=== PATIENT | female | born 1935 | race Caucasian/White ===

== ENCOUNTER 2017-01-07 13:53 | Emergency (ER) | payer MEDICARE, MEDICAID ==
[~2017-01-07] VITALS: Ht 154.9 cm; Wt 46.7 kg
[~2017-01-07 13:53] MED LIST: ASP325TEC PO; ASP81TEC PO; ASPI-74 PO; ATEN25TA PO; CND32T PO; COMBIVENT; FURO20TA4 PO; LEVO250T PO; MELO-195 PO; MNTL10T PO; PEDI1TAB35 PO; POTA10CA43 PO; RABE20TA PO; SINGULAR; SPIRIVIA; TIOT18CA INH
--- OUTSIDE RECORDS SUMMARY | 2017-01-07 14:04 | XMS REPORT | Continuity of Care Document ---
Author Author [facility] Organization [facility] Address Unknown Phone Unavailable Care Team Providers Care Water Sander Name Role Phone QUENTIN ORTIZ MD PP Insurance Providers Payer Name Policy Number Subscriber Name Relationship [facility] [id number] Raffi Faustin Self / Same As Patient [employer] [id number] Raffi Faustin Self / Same As Patient Advance Directives Directive Response Recorded Date Advance Directives Y 07/14/13 6:44pm Health Care Power of Motor Coach Supervisor N 07/14/13 6:44pm Organ Donor Y 07/14/13 6:44pm Problems No Known Problems or Medical conditions. Family History History Response Recorded Date/Time Hx Family Cancer N 08/07/12 12:00am Hx Family Cardiac Disorders Y 08/07/12 12 :00am Hx Family Stroke Y brother 08/07/12 12: 00am Hx Family Myocardial Infarction Y Father, 2 brothers 08/07/12 12:00am Social History History Response Recorded Date/Time Alcohol Use Rarely Uses 07/14/13 6:44pm Recreational Drug Use N 07/14/13 6:44pm Sexually Transmitted Disease N 07/14/13 6 :44pm Allergies, Adverse Reactions, Alerts Allergen Type Severity Reaction Last Updated Sulfa (Sulfonamide Antibiotics) Allergy 09/01/11 hydrochlorothiazide Allergy Intermediate RASH 05/16/12 Levofloxacin Adverse Reaction Intermediate SOA 07/14/13 milk Adverse Reaction Mild upset stomach 07/14/13 Medications Medication Dose Units Route Sig Qty Days [Singular] [Combivent] [Spirivia] Meloxicam 1 Each PO DAILY Rabeprazole Sodium (Aciphex) 20 Mg PO DAILY Aspirin (Aspirin Ec 81 Mg) 81 Mg PO DAILY Potassium Chloride 10 Meq PO DAILY Furosemide 20 Mg PO DAILY Atenolol (Tenormin 25 Mg) 25 Mg PO DAILY [spirivia] Aspirin (Aspirin Ec 325 Mg) 325 Mg PO DAILY Tiotropium [place] (Spiriva) 1 Puff INH DAILY Aspirin (Mariaelena Aspirin) 325 Mg PO DAILY Levofloxacin (Levaquin Po) 250 Mg PO DAILY Montelukast Sodium (Singulair) 10 Mg PO DAILY Immunizations Name Given Type Date of Pneumonia Vaccine 10/22/11 H Response Recorded Date/Time Status not known Unknown Results Test Date Result Interp. Ref. Range Activated Partial Thromboplast Time August 06, 2012 10: 30pm 21 SEC L 24-35 Alanine Aminotransferase (ALT/SGPT) August 06, 2012 10: 30pm 65 U/L N 30-65 Albumin August 06, 2012 10:30pm 3.7 G/ DL N 3.4-5.0 Alkaline Phosphatase August 06, 2012 10:30pm 133 U/L N 50-136 Amylase Level August 06, 2012 10:30pm 62 U/L N 25-115 Aspartate Amino Transf (AST/SGOT) August 06, 2012 10:30pm 76 U/L H 15-37 B-Type Natriuretic Peptide August 06, 2012 10:30pm 3030.0 PG/ML H 5.0-100.0 BUN/Creatinine Ratio August 06, 2012 10:30pm 17 - Basophils # (Auto) August 06, 2012 10:30pm 0.1 10^3/uL N 0.0-0.1 Basophils (%) (Auto) August 06, 2012 10:30pm 1 % N 0-10 Blood Urea Nitrogen August 06, 2012 10:30pm 24 MG/DL H 7-18 Calcium Level August 06, 2012 10:30pm 8.8 MG/DL N 8.5-10.1 Carbon Dioxide Level August 06, 2012 10:30pm 27 MMOL/L N 21-32 Chloride Level August 06, 2012 10:30pm 102 MMOL/L N 101-110 Creatine Kinase MB August 06, 2012 10:30pm 0.8 NG/ML N 0.0-3.6 Creatinine August 06, 2012 10:30pm 1.4 MG/DL H 0.6-1.3 Eosinophils # (Auto) August 06, 2012 10:30pm 0.1 10^3/uL N 0.0-0.3 Eosinophils (%) (Auto) August 06, 2012 10:30pm 1 % N 0-10 Glucose Level August 06, 2012 10:30pm 171 MG/DL H 74-106 Hematocrit August 06, 2012 10:30pm 42 % N 35-52 Hemoglobin August 06, 2012 10:30pm 14.4 G/DL N 11.5-16.0 Lipase August 06, 2012 10:30pm 162 U/L N 73-393 Lymphocytes # (Auto) August 06, 2012 10:30pm 3.3 X 10^3 N 1.0-4.0 Lymphocytes (%) (Auto) August 06, 2012 10:30pm 43 % N 12-44 Magnesium Level May 16, 2012 12:07am 2.2 MG/DL N 1.8-2.4 Mean Corpuscular Hemoglobin August 06, 2012 10:30pm 31 PG N 25-34 Mean Corpuscular Hemoglobin Concent August 06, 2012 10: 30pm 34 G/DL N 32-36 Mean Corpuscular Volume August 06, 2012 10:30pm 92 FL N 80-99 Mean Platelet Volume August 06, 2012 10:30pm 9.8 FL N 7.4-10.4 Monocytes # (Auto) August 06, 2012 10:30pm 0.5 X 10^3 N 0.0-1.0 Monocytes (%) (Auto) August 06, 2012 10:30pm 7 % N 0-12 Myoglobin May 16, 2012 12:07am 36 UG/L N 10-92 Neutrophils # (Auto) August 06, 2012 10:30pm 3.6 X 10^3 N 1.8-7.8 Neutrophils (%) (Auto) August 06, 2012 10:30pm 48 % N 42-75 Platelet Count August 06, 2012 10:30pm 390 10^3/uL N 130-400 Potassium Level August 06, 2012 10:30pm 3.8 MMOL/L N 3.6-5.0 Prothromb Time International Ratio August 06, 2012 10:30pm 0.9 N 0.8-1.4 Prothrombin Time August 06, 2012 10:30pm 12.1 SEC L 12.2-14.7 Red Blood Count August 06, 2012 10:30pm 4.60 10^6/uL N 4.35-5.85 Red Cell Distribution Width August 06, 2012 10:30pm 13.8 % N 10.0-14.5 Sodium Level August 06, 2012 10:30pm 136 MMOL/L N 135-145 Total Bilirubin August 06, 2012 10:30pm 0.4 MG/DL N 0.0-1.0 Total Creatine Kinase August 06, 2012 10:30pm 51 U/L N 1-159 Total Protein August 06, 2012 10:30pm 7.9 G/DL N 6.4-8.2 Troponin I August 06, 2012 10:30pm < 0.10 NG/ML 0.00-0.10 Urine Bacteria September 01, 2011 1:44am TRACE - Urine Bilirubin September 01, 2011 1:44am NEGATIVE - Urine Casts September 01, 2011 1:44am NONE - Urine Clarity September 01, 2011 1:44am CLEAR - Urine Color September 01, 2011 1:44am YELLOW - Urine Crystals September 01, 2011 1:44am NONE - Urine Culture Indicated September 01, 2011 1:44am NO - Urine Glucose (UA) September 01, 2011 1:44am NEGATIVE - Urine Ketones September 01, 2011 1:44am NEGATIVE - Urine Leukocyte Esterase September 01, 2011 1:44am NEGATIVE - Urine Mucus September 01, 2011 1:44am NEGATIVE - Urine Nitrite September 01, 2011 1:44am NEGATIVE - Urine Protein September 01, 2011 1:44am TRACE - Urine RBC September 01, 2011 1:44am NONE /HPF - Urine Specific [place] September 01, 2011 1:44am 1.010 L - Urine Squamous Epithelial Cells September 01, 2011 1:44am 10-25 H - Urine Urobilinogen September 01, 2011 1:44am NORMAL MG/DL - Urine WBC September 01, 2011 1:44am NONE /HPF - Urine pH September 01, 2011 1:44am 6.5 - White Blood Count August 06, 2012 10:30pm 7.5 10^3/uL N 4.3-11.0 Serum Alcohol August 06, 2012 10:30pm < 5 MG/DL -5 Lab Scanned Report May 16, 2012 2:02am LAB Reports [id number] - Estimat Glomerular Filtration Rate August 06, 2012 10:30pm 36 - Creatine Kinase May 16, 2012 6:20am 54 U/L N 1-159 Cardiac Panel Pathologist Review May 16, 2012 12:07am SEE CARDIAC PATH REV - Urine RBC (Auto) September 01, 2011 1:44am NEGATIVE - Procedures Procedure Code Date Blood Culture 05/16/12 Gram Stain 05/16/12 Encounters Encounter Location Date/Time Departed Emergency Room [facility] 6:02pm Discharged Inpatient [facility] 11:20pm
--- NOTE | 2017-01-07 14:51 | ED General ---
General Chief Complaint: Skin/Wound Problems Stated Complaint: WEAKNESS/DIZZINESS Nursing Triage Note: pt c/o weakness, muscle pain, back pain, decreased appetite starting Sunday. Nursing Sepsis Screen: Possible Sepsis Risk Source of Information: Patient Exam Limitations: No Limitations History of Present Illness Time Seen by Provider: 14:46 Initial Comments To ER with diffuse generalized weakness, aches in both of her thighs, back pain and reduced appetite. No fevers. This began last week. She was seen at [facility] in [place] and given a prescription for hydrocodone and diagnosed with muscle strain on Sunday of this past week. She presents today with development of a left-sided rash to the left flank. The rash is very painful in the hydrocodone that she received is not helping. Timing/Duration: 1 Week Severity: Moderate Allergies and Home Medications Allergies Coded Allergies: hydrochlorothiazide (Verified Allergy, Intermediate, RASH, 05/16/12) Sulfa (Sulfonamide Antibiotics) (Unverified Allergy, 09/01/11) Levofloxacin (Verified Adverse Reaction, Intermediate, SOA, 07/14/13) milk (Verified Adverse Reaction, Mild, upset stomach, 07/14/13) states cooked mild ok Home Medications (Reported) (Reported) (Reported) Aspirin 81 Mg Tabec 81 MG PO DAILY (Reported) Atenolol 25 Mg Tablet 25 MG PO DAILY (Reported) Furosemide 20 Mg Tablet 20 MG PO DAILY (Reported) Meloxicam 15 Mg Tablet 1 EACH PO DAILY (Reported) Pediatric Multivit Comb. No.49 1 Each Tab.chew 2 EACH PO DAILY (Reported) Potassium Chloride 10 Meq Capsule.sa 10 MEQ PO DAILY (Reported) Rabeprazole Sodium 20 Mg Tablet.dr 20 MG PO DAILY (Reported) Constitutional: see HPI EENTM: see HPI Respiratory: no symptoms reported Cardiovascular: no symptoms reported Genitourinary: no symptoms reported Musculoskeletal: see HPI back pain Skin: see HPI lesions rash Psychiatric/Neurological: No Symptoms Reported Hematologic/Lymphatic: No Symptoms Reported Past [id number] Hx Patient Social History Recent Foreign Travel: No Contact w/Someone Who Travel: No Recent Infectious Disease Expo: No Recent Hopitalizations: Yes (COPD) Immunizations Up To Date Date of Pneumonia Vaccine: Oct 22, 2010 Surgeries HX Surgeries: Yes (mastectomy left) Respiratory Hx Respiratory Disorders: Yes Respiratory Disorders: COPD Cardiovascular Hx Cardiac Disorders: Yes (stress test Nov 2011 in [place], denies cardiac issues, heart cath neg) Neurological Hx Neurological Disorders: No Reproductive System Hx Reproductive Disorders: Yes Sexually Transmitted Disease: No Genitourinary Hx Genitourinary Disorders: No Gastrointestinal Hx Gastrointestinal Disorders: No Musculoskeletal Hx Musculoskeletal Disorders: Yes Musculoskeletal Disorders: Osteoporosis, Arthritis Endocrine Hx Endocrine Disorders: No HEENT HX ENT Disorders: No Cancer Hx Cancer: Yes (Left mastectomy) Cancer: Breast Psychosocial Hx Psychiatric Problems: No Integumentary HX Skin/Integumentary Disorder: No Blood Transfusions Hx Blood Disorders: No Physical Exam Vital Signs Vital Sign - Last 12Hours 01/07/17 14:20 Temp 100.2 Pulse 101 Resp 20 B/P 108/82 Capillary Refill : Less Than 3 Seconds General Appearance: No Apparent Distress WD/WN Eyes: Bilateral Eye Normal Inspection, Bilateral Eye PERRL HEENT: PERRL/EOMI TMs Normal Neck: Full Range of Motion Normal Inspection Respiratory: No Accessory Muscle Use No Respiratory Distress Cardiovascular: Regular Rate, Rhythm Normal Peripheral Pulses Gastrointestinal: Non Tender Soft Extremity: Normal Capillary Refill Normal Inspection Neurologic/Psychiatric: Alert Oriented x3 No Motor/Sensory Deficits Skin: Other (there is an erythematous rash with vesicles starts and does not cross the midline of the back on the left side and wraps around to the left lower abdomen in approximately the T10 to T12 dermatome region.) Focused Exam Lactic Acid Level Laboratory Tests Test 01/07/17 15:13 Alanine Aminotransferase (ALT/SGPT) 13U/L (0-55) Albumin 3.9G/DL (3.2-4.5) Alkaline Phosphatase 87U/L (40-136) Anion Gap 12MMOL/L (5-14) Aspartate Amino Transf (AST/SGOT) 19U/L (5-34) BUN/Creatinine Ratio 11 Blood Urea Nitrogen 19MG/DL (7-18) H Calcium Level 8.9MG/DL (8.5-10.1) Carbon Dioxide Level 21MMOL/L (21-32) Chloride Level 100MMOL/L (98-107) Creatinine 1.67MG/DL (0.60-1.30) H Estimat Glomerular Filtration Rate 29 Glucose Level 104MG/DL (70-105) Potassium Level 3.5MMOL/L (3.6-5.0) L Sodium Level 133MMOL/L (135-145) L Total Bilirubin 0.4MG/DL (0.1-1.0) Total Protein 7.1G/DL (6.4-8.2) Progress/Results/Core Measures Results/Orders Lab Results Laboratory Tests Test 01/07/17 15:13 Range/Units Alanine Aminotransferase (ALT/SGPT) 13 0-55 U/L Albumin 3.9 3.2-4.5 G/DL Alkaline Phosphatase 87 40-136 U/L Anion Gap 12 5-14 MMOL/L Aspartate Amino Transf (AST/SGOT) 19 5-34 U/L BUN/Creatinine Ratio 11 Basophils # (Auto) 0.0 0.0-0.1 10^3/uL Basophils (%) (Auto) 1 0-10 % Blood Urea Nitrogen 19 H 7-18 MG/DL Calcium Level 8.9 8.5-10.1 MG/DL Carbon Dioxide Level 21 21-32 MMOL/L Chloride Level 100 98-107 MMOL/L Creatinine 1.67 H 0.60-1.30 MG/DL Eosinophils # (Auto) 0.1 0.0-0.3 10^3/uL Eosinophils (%) (Auto) 2 0-10 % Estimat Glomerular Filtration Rate 29 Glucose Level 104 70-105 MG/DL Hematocrit 37 35-52 % Hemoglobin 12.8 11.5-16.0 G/DL Lymphocytes # (Auto) 0.5 L 1.0-4.0 X 10^3 Lymphocytes (%) (Auto) 9 L 12-44 % Mean Corpuscular Hemoglobin 31 25-34 PG Mean Corpuscular Hemoglobin Concent 35 32-36 G/DL Mean Corpuscular Volume 91 80-99 FL Mean Platelet Volume 9.9 7.4-10.4 FL Monocytes # (Auto) 0.4 0.0-1.0 X 10^3 Monocytes (%) (Auto) 8 0-12 % Neutrophils # (Auto) 4.0 1.8-7.8 X 10^3 Neutrophils (%) (Auto) 80 H 42-75 % Platelet Count 207 130-400 10^3/uL Potassium Level 3.5 L 3.6-5.0 MMOL/L Red Blood Count 4.08 L 4.35-5.85 10^6/uL Red Cell Distribution Width 12.3 10.0-14.5 % Sodium Level 133 L 135-145 MMOL/L Total Bilirubin 0.4 0.1-1.0 MG/DL Total Protein 7.1 6.4-8.2 G/DL White Blood Count 5.0 4.3-11.0 10^3/uL My Orders Orders-LOUISE REES APRN Cbc With Automated Diff (01/07/17 14:35) Comprehensive Metabolic Panel (01/07/17 14:35) Vital Signs/I&O Vital Sign - Last 12Hours 01/07/17 14:20 Temp 100.2 Pulse 101 Resp 20 B/P 108/82 Blood Pressure Mean: 91 Departure Impression Impression: Primary Impression: Darryl Disposition: 01 HOME, SELF-CARE Condition: Stable Departure-Patient Inst. Decision time for Depature: 15:50 Referrals: ELIESER SALVADOR DO (PCP) Primary Care Physician Patient Instructions: Darryl Add. Discharge Instructions: Medication as directed 2. Return to ER for any concerns 3. See your doctor later this week for recheck All discharge instructions reviewed with patient and/or family. Voiced understanding. Scripts Oxycodone HCl/Acetaminophen (Percocet 5-325 mg Tablet)1 Each Tablet1 Each PO Q4H PRN PAIN #14 TAB Prov:LOUISE RESE APRN 01/07/17 Acyclovir 800 Mg [id number] Mg PO Q4H #28 TAB Prov:LOUISE REES APRN 01/07/17 LOUISE REES APRN Jan 07, 2017 14:51
[2017-01-07 15:20] LABS: BASOPHILS % (AUTO) 1 % (0-10); EOSINOPHILS # (AUTO) 0.1 10^3/uL (0.0-0.3); EOSINOPHILS % (AUTO) 2 % (0-10); LYMPHOCYTES # (AUTO) 0.5 X 10^3 (1.0-4.0); LYMPHOCYTES % (AUTO) 9 % (12-44); MEAN CORPUSCULAR HEMOGLOBIN 31 PG (25-34); MEAN CORPUSCULAR HGB CONC 35 G/DL (32-36); MEAN CORPUSCULAR VOLUME 91 FL (80-99); MEAN PLATELET VOLUME 9.9 FL (7.4-10.4); MONOCYTES # (AUTO) 0.4 X 10^3 (0.0-1.0); MONOCYTES % (AUTO) 8 % (0-12); NEUTROPHILS % (AUTO) 80 % (42-75); PLATELET COUNT 207 10^3/uL (130-400); RED BLOOD COUNT 4.08 10^6/uL (4.35-5.85); RED CELL DISTRIBUTION WIDTH 12.3 % (10.0-14.5)
[2017-01-07 15:44] LABS: ALBUMIN 3.9 G/DL (3.2-4.5); BILIRUBIN,TOTAL 0.4 MG/DL (0.1-1.0); CALCIUM 8.9 MG/DL (8.5-10.1); CREATININE SERUM 1.67 MG/DL (0.60-1.30); POTASSIUM 3.5 MMOL/L (3.6-5.0); TOTAL PROTEIN 7.1 G/DL (6.4-8.2)
[2017-01-07] MEDS ORDERED: OXYC-197 PO (15:51)
[2017-01-07] MEDS ORDERED: ACYC800T PO (15:51)
[2017-01-07 15:56] VITALS: BP 108/82
== END 2017-01-07 15:56 | disposition home or self-care (01) ==
LOC: EDUNIT# 13:53 → ER 13:55
DX: B02.9 Zoster without complications (principal); R42 Dizziness and giddiness; R53.1 Weakness; J44.9 Chronic obstructive pulmonary disease, unspecified; Z79.899 Other long term (current) drug therapy; Z79.82 Long term (current) use of aspirin
CPT/HCPCS: 36415; 80053; 85025; 99281

== ENCOUNTER 2017-01-08 22:33 | Emergency (ER) | payer MEDICARE, MEDICAID ==
[~2017-01-08] VITALS: Ht 154.9 cm; Wt 46.7 kg
[~2017-01-08 22:33] MED LIST changes: +ACYC800T PO; +OXYC-197 PO
--- OUTSIDE RECORDS SUMMARY | 2017-01-08 22:38 | XMS REPORT | Continuity of Care Document ---
Author Author [facility] Organization [facility] Address Unknown Phone Unavailable Care Team Providers Care Baker Pie Name Role Phone ELIESER SALVADOR DO PCP Insurance Providers Payer Name Policy Number Subscriber Name Relationship [employer] [id number] Raffi Lewis 18 Self / Same As Patient [facility] [id number] Raffi Lewis 18 Self / Same As Patient Advance Directives Directive Response Recorded Date/Time Advance Directives Yes 09/06/13 9:13am Health Care Power of College Athlete No 09/06/13 9:13am Organ Donor Yes 09/06/13 9:13am Chief Complaint and Reason for Visit Chief Complaint Skin/Wound Problems Reason for Visit [id number] Problems Active Problems Medical Problem Onset Date Status Dyspnea on exertion Unknown Acute Edema Unknown Acute Hypoxia Unknown Acute Shingles Unknown Acute acute exacerbation of congestive heart failure Unknown Acute generalized weakness Unknown Acute Medications Current Home Medications Medication Dose Units Route Directions Days/Qty Instructions Start Date Atenolol 25 Mg 25 Mg Oral Daily 09/01/11 Furosemide (Lasix) 20 Mg 20 Mg Oral Daily 08/07/12 Potassium Chloride 10 Meq 10 Meq Oral Daily 08/07/12 Aspirin 81 Mg 81 Mg Oral Daily 07/14/13 Rabeprazole Sodium 20 Mg 20 Mg Oral Daily 07/14/13 Meloxicam (Mobic) 15 Mg 1 Each Oral Daily 07/14/13 [Spirivia] 07/14/13 [Combivent] 07/14/13 [Singular] 07/14/13 Pediatric Multivit Comb. No.49 1 Each 2 Each Oral Daily 09/06/13 Acyclovir 800 Mg 800 Mg Oral Every 4HRS 28 01/07/17 Oxycodone Hcl/Acetaminophen 1 Each 1 Each Oral Every 4HRS as needed for Pain 14 01/07/17 Past Home Medications Medication Directions Ordered Status Montelukast Sodium 10 Mg Tab, 10 Mg Oral Daily 05/16/12 Discontinued Levofloxacin 250 Mg Tab, 250 Mg Oral Daily 05/16/12 Discontinued Aspirin 325 Mg Tablet, 325 Mg Oral Daily 05/16/12 Discontinued Tiotropium [place] 18 Mcg Cap.w.dev, 1 Puff Inhalation Daily 05/16/12 Discontinued Aspirin 325 Mg Tabec, 325 Mg Oral Daily 08/07/12 Discontinued [Spirivia] , 07/14/13 Discontinued Social History Social History Problem Response Recorded Date/Time Alcohol Use Rarely Uses 09/06/2013 9:13am Recreational Drug Use No 09/06/2013 9:13am Recent Foreign Travel No 01/07/2017 2:20pm Recent Infectious Disease Exposure No 01/07/2017 2:20pm Sexually Transmitted Disease No 01/07/2017 2:31pm Recent Hopitalizations Y COPD 01/07/2017 2:31pm Sexually Transmitted Disease No 01/07/2017 2:31pm Hx Sexually Transmitted Disorders No 08/07/2012 12:00am Hospital Discharge Instructions No hospital discharge instructions. Plan of Care Discharge Date 01/07/17 3:56pm Disposition 01 HOME, SELF-CARE Condition at Discharge Stable Instructions/Education Provided Shingles Prescriptions See Medication Section Referrals ELIESER SALVADOR DO - Primary Care Physician Additional Instructions/Education Medication as directed 2. Return to ER for any concerns 3. See your doctor later this week for recheck All discharge instructions reviewed with patient and/or family. Voiced understanding. Functional Status No functional status results. Allergies, Adverse Reactions, Alerts Allergen Type Severity Reaction Status Last Updated Sulfa (Sulfonamide Antibiotics) ([id number]) Allergy Active 09/01/11 Hydrochlorothiazide Allergy Intermediate RASH Active 05/16/12 Levofloxacin Adverse Reaction Intermediate SOA Active 07/14/13 milk ([id number]) Adverse Reaction Mild upset stomach Active 07/14/13 Immunizations No immunization records. Vital Signs Acute Vital Signs Vital Response Date/Time Temperature (Fahrenheit) 100.2 degrees F (97.6 - 99.5) 01/07/2017 2:20pm Temperature (Calculated Celsius) 37.60361 degrees C (36.4 - 37.5) 01/07/2017 2:20pm Temperature Source Temporal 01/07/2017 2:20pm Pulse Rate (adult) 101 bpm (60 - 90) 01/07/2017 2:20pm Respiratory Rate 20 bpm (12 - 24) 01/07/2017 2:20pm Blood Pressure 108/82 mm Hg 01/07/2017 2:20pm Blood Pressure Mean 91 mm Hg 01/07/2017 2:20pm Pain Numeric Pain Scale 8 01/07/2017 2:20pm Height (Feet) 5 feet 01/07/2017 2:20pm Height (Inches) 1 inches 01/07/2017 2:20pm Height (Calculated Centimeters) 154.498741 cm 01/07/2017 2:20pm Weight (Pounds) 103 pounds 01/07/2017 2:20pm Weight (Calculated Kilograms) 46.099394 kilograms 01/07/2017 2:20pm Capillary Refill Capillary Refill Less Than 3 Seconds 01/07/2017 2:20pm Height 5 ft 1 in Weight 103 lb Body Mass Index 19.5 kg/m^2 Results Laboratory Results Test Name Result Units Flags Reference Collection Date/Time Result Date/ Time Comments White Blood Count 5.0 10^3/uL 4.3-11.0 01/07/2017 3:13pm 01/07/2017 3: 21pm Red Blood Count 4.08 10^6/uL L 4.35-5.85 01/07/2017 3:13pm 01/07/2017 3: 21pm Hemoglobin 12.8 G/DL 11.5-16.0 01/07/2017 3:13pm 01/07/2017 3:21pm Hematocrit 37 % 35-52 01/07/2017 3:13pm 01/07/2017 3:21pm Mean Corpuscular Volume 91 FL 80-99 01/07/2017 3:13pm 01/07/2017 3: 21pm Mean Corpuscular Hemoglobin 31 PG 25-34 01/07/2017 3:13pm 01/07/2017 3: 21pm Mean Corpuscular Hemoglobin Concent 35 G/DL 32-36 01/07/2017 3:13pm 3:21pm Red Cell Distribution Width 12.3 % 10.0-14.5 01/07/2017 3:13pm 2016 3:21pm Platelet Count 207 10^3/uL 130-400 01/07/2017 3:13pm 01/07/2017 3:21pm Mean Platelet Volume 9.9 FL 7.4-10.4 01/07/2017 3:13pm 01/07/2017 3: 21pm Neutrophils (%) (Auto) 80 % H 42-75 01/07/2017 3:pm 01/07/2017 3:21pm Lymphocytes (%) (Auto) 9 % L 12-44 01/07/2017 3:13pm 01/07/2017 3:21pm Monocytes (%) (Auto) 8 % 0-12 01/07/2017 3:01/07/2017 3:21pm Eosinophils (%) (Auto) 2 % 0-10 01/07/2017 3:pm 01/07/2017 3:21pm Basophils (%) (Auto) 1 % 0-10 01/07/2017 3:pm 01/07/2017 3:21pm Neutrophils # (Auto) 4.0 X 10^3 1.8-7.8 01/07/2017 3:pm 01/07/2017 3: 21pm Lymphocytes # (Auto) 0.5 X 10^3 L 1.0-4.0 01/07/2017 3:pm 01/07/2017 3: 21pm Monocytes # (Auto) 0.4 X 10^3 0.0-1.0 01/07/2017 3:13pm 01/07/2017 3: 21pm Eosinophils # (Auto) 0.1 10^3/uL 0.0-0.3 01/07/2017 3:pm 01/07/2017 3 :21pm Basophils # (Auto) 0.0 10^3/uL 0.0-0.1 01/07/2017 3:13pm 01/07/2017 3: 21pm Sodium Level 133 MMOL/L L 135-145 01/07/2017 3:13pm 01/07/2017 3:45pm Potassium Level 3.5 MMOL/L L 3.6-5.0 01/07/2017 3:13pm 01/07/2017 3:45pm Chloride Level 100 MMOL/L 98-107 01/07/2017 3:13pm 01/07/2017 3:45pm Carbon Dioxide Level 21 MMOL/L 21-32 01/07/2017 3:13pm 01/07/2017 3: 45pm Anion Gap 12 MMOL/L 5-14 01/07/2017 3:13pm 01/07/2017 3:45pm Blood Urea Nitrogen 19 MG/DL H 7-18 01/07/2017 3:13pm 01/07/2017 3:45pm Creatinine 1.67 MG/DL H 0.60-1.30 01/07/2017 3:13pm 01/07/2017 3:45pm BUN/Creatinine Ratio 11 01/07/2017 3:13pm 01/07/2017 3:45pm Estimat Glomerular Filtration Rate 29 01/07/2017 3:1301/07/2017 3:45pm GFR INTERPRETIVE DATA UNITS FOR ESTIMATED GFR (eGFR): mL/min/1.73 M2 REFERENCE RANGE FOR ESTIMATED GFR (eGFR) eGFR NORMAL eGFR >60 MODERATELY DECREASED eGFR 30-59 SEVERLY DECREASED eGFR 15-29 KIDNEY FAILURE <15 (OR DIALYSIS) Glucose Level 104 MG/DL 70-105 01/07/2017 3:13pm 01/07/2017 3:45pm Calcium Level 8.9 MG/DL 8.5-10.1 01/07/2017 3:13pm 01/07/2017 3:45pm Total Bilirubin 0.4 MG/DL 0.1-1.0 01/07/2017 3:13pm 01/07/2017 3:45pm Alkaline Phosphatase 87 U/L 40-136 01/07/2017 3:13pm 01/07/2017 3:45pm Aspartate Amino Transf (AST/SGOT) 19 U/L 5-34 01/07/2017 3:13pm 2016 3:45pm Alanine Aminotransferase (ALT/SGPT) 13 U/L 0-55 01/07/2017 3:13pm 01/07 3:45pm Total Protein 7.1 G/DL 6.4-8.2 01/07/2017 3:13pm 01/07/2017 3:45pm Albumin 3.9 G/DL 3.2-4.5 01/07/2017 3:13pm 01/07/2017 3:45pm Procedures No known history of procedures. Encounters Encounter Location Arrival/Admit Date Discharge/Depart Date Attending Provider Departed Emergency Room [facility] 01/07/17 1:55pm 01/07 3:56pm LOUISE REES APRN Recent Diagnosis
[2017-01-08] MEDS ORDERED: NS IV 500 ML 500 ML IV ONE (23:43)
--- NOTE | 2017-01-08 23:44 | ED General ---
General Chief Complaint: General Problems/Pain Stated Complaint: DIFFICULTY URINATING/LOW BP Nursing Triage Note: PT TO ED 6 W/ FAMILY FOR C/O LOW BLOOD PRESSURE. PT WAS SEEN IN THIS ED YESTERDAY ET DX W/ SHINGLES. NO OTHER C/O VOICED Nursing Sepsis Screen: No Definite Risk Source of Information: Patient, Family Exam Limitations: No Limitations History of Present Illness Time Seen by Provider: 23:30 Initial Comments Here with report of low blood pressure and decreased urination. She is diagnosis shingles and is on medications for that. States she feels like she's been drinking water but she has been sick recently. Denies nausea or vomiting. Denies weakness. Does have active case of shingles to the left low back. Timing/Duration: 12 Hours Severity: Moderate Associated Systoms: No Chest Pain, No Cough, Fever/ChillsNo Nausea/Vomiting, Rash Weakness Allergies and Home Medications Allergies Coded Allergies: hydrochlorothiazide (Verified Allergy, Intermediate, RASH, 05/16/12) Sulfa (Sulfonamide Antibiotics) (Unverified Allergy, 09/01/11) Levofloxacin (Verified Adverse Reaction, Intermediate, SOA, 07/14/13) milk (Verified Adverse Reaction, Mild, upset stomach, 07/14/13) states cooked mild ok Home Medications (Reported) (Reported) (Reported) Acyclovir 800 Mg Tablet #28 800 MG PO Q4H Prescribed by: LOUISE REES on 01/07/171550 Aspirin 81 Mg Tabec 81 MG PO DAILY (Reported) Atenolol 25 Mg Tablet 25 MG PO DAILY (Reported) Furosemide 20 Mg Tablet 20 MG PO DAILY (Reported) Meloxicam 15 Mg Tablet 1 EACH PO DAILY (Reported) Oxycodone HCl/Acetaminophen 1 Each Tablet #14 1 EACH PO Q4H PRN PRN PAIN Prescribed by: LOUISE REES on 01/07/171550 Pediatric Multivit Comb. No.49 1 Each Tab.chew 2 EACH PO DAILY (Reported) Potassium Chloride 10 Meq Capsule.sa 10 MEQ PO DAILY (Reported) Rabeprazole Sodium 20 Mg Tablet.dr 20 MG PO DAILY (Reported) Constitutional: see HPINo chills, fever EENTM: no symptoms reported Respiratory: no symptoms reported Cardiovascular: see HPI other (low blood pressure) Gastrointestinal: no symptoms reported Genitourinary: see HPI decreased output Musculoskeletal: see HPI back pain muscle pain Skin: see HPI lesions rash Psychiatric/Neurological: See HPIDenies Headache Hematologic/Lymphatic: No Symptoms Reported All Other Systems Reviewed Negative Unless Noted: Yes Past Xmhjzoc-Oejayd-Yvwlqz Hx Patient Social History Alcohol Use: Denies Use Recreational Drug Use: No Smoking Status: Current Everyday Smoker Type Used: Cigarettes Recent Foreign Travel: No Contact w/Someone Who Travel: No Recent Infectious Disease Expo: No Recent Hopitalizations: Yes (COPD) Immunizations Up To Date Date of Pneumonia Vaccine: Oct 22, 2010 Surgeries HX Surgeries: Yes (mastectomy left) Respiratory Hx Respiratory Disorders: Yes Respiratory Disorders: COPD Cardiovascular Hx Cardiac Disorders: Yes (stress test Nov 2011 in [place], denies cardiac issues, heart cath neg) Neurological Hx Neurological Disorders: No Reproductive System Hx Reproductive Disorders: Yes Sexually Transmitted Disease: No Genitourinary Hx Genitourinary Disorders: No Gastrointestinal Hx Gastrointestinal Disorders: No Musculoskeletal Hx Musculoskeletal Disorders: Yes Musculoskeletal Disorders: Osteoporosis, Arthritis Endocrine Hx Endocrine Disorders: No HEENT HX ENT Disorders: No Cancer Hx Cancer: Yes (Left mastectomy) Cancer: Breast Psychosocial Hx Psychiatric Problems: No Integumentary HX Skin/Integumentary Disorder: Yes (SHINGLES 01/05) Blood Transfusions Hx Blood Disorders: No Reviewed Nursing Assessment Reviewed/Agree w Nursing PMH: Yes Family Medical History Significant Family History: No Pertinent Family Hx Physical Exam Vital Signs Vital Sign - Last 12Hours 01/08/17 23:08 Temp 100.5 Pulse 93 Resp 18 B/P 87/46 Pulse Ox 86 O2 Delivery Room Air Capillary Refill : Less Than 3 Seconds General Appearance: No Apparent Distress WD/WN HEENT: PERRL/EOMI Pharynx Normal Neck: Non Tender Supple Respiratory: Lungs Clear Normal Breath Sounds Cardiovascular: Regular Rate, Rhythm No Murmur Gastrointestinal: Non Tender Soft Back: Other (pain in the area of shingles outbreak to the low back on the left.) Extremity: Normal Range of Motion Non Tender No Calf Tenderness Neurologic/Psychiatric: Alert Oriented x3 Skin: Rash Other (erythema and blisters to the left low back radiating around the left side consistent with shingles outbreak.) Focused Exam Lactic Acid Level Laboratory Tests Test 01/08/17 23:35 Alanine Aminotransferase (ALT/SGPT) 12U/L (0-55) Albumin 3.5G/DL (3.2-4.5) Alkaline Phosphatase 79U/L (40-136) Anion Gap 12MMOL/L (5-14) Aspartate Amino Transf (AST/SGOT) 18U/L (5-34) BUN/Creatinine Ratio 11 Blood Urea Nitrogen 22MG/DL (7-18) H Calcium Level 8.4MG/DL (8.5-10.1) L Carbon Dioxide Level 20MMOL/L (21-32) L Chloride Level 97MMOL/L (98-107) L Creatinine 1.97MG/DL (0.60-1.30) H Estimat Glomerular Filtration Rate 24 Glucose Level 117MG/DL (70-105) H Potassium Level 3.8MMOL/L (3.6-5.0) Sodium Level 129MMOL/L (135-145) L Total Bilirubin 0.4MG/DL (0.1-1.0) Total Protein 6.6G/DL (6.4-8.2) Progress/Results/Core Measures Results/Orders Lab Results Laboratory Tests Test 01/08/17 23:35 01/09/17 00:24 Range/Units Alanine Aminotransferase (ALT/SGPT) 12 0-55 U/L Albumin 3.5 3.2-4.5 G/DL Alkaline Phosphatase 79 40-136 U/L Anion Gap 12 5-14 MMOL/L Aspartate Amino Transf (AST/SGOT) 18 5-34 U/L BUN/Creatinine Ratio 11 Basophils # (Auto) 0.1 0.0-0.1 10^3/uL Basophils (%) (Auto) 1 0-10 % Blood Urea Nitrogen 22 H 7-18 MG/DL Calcium Level 8.4 L 8.5-10.1 MG/DL Carbon Dioxide Level 20 L 21-32 MMOL/L Chloride Level 97 L 98-107 MMOL/L Creatinine 1.97 H 0.60-1.30 MG/DL Eosinophils # (Auto) 0.2 0.0-0.3 10^3/uL Eosinophils (%) (Auto) 4 0-10 % Estimat Glomerular Filtration Rate 24 Glucose Level 117 H 70-105 MG/DL Hematocrit 33 L 35-52 % Hemoglobin 11.6 11.5-16.0 G/DL Lymphocytes # (Auto) 0.9 L 1.0-4.0 X 10^3 Lymphocytes (%) (Auto) 17 12-44 % Mean Corpuscular Hemoglobin 31 25-34 PG Mean Corpuscular Hemoglobin Concent 35 32-36 G/DL Mean Corpuscular Volume 90 80-99 FL Mean Platelet Volume 10.5 H 7.4-10.4 FL Monocytes # (Auto) 0.8 0.0-1.0 X 10^3 Monocytes (%) (Auto) 16 H 0-12 % Neutrophils # (Auto) 3.2 1.8-7.8 X 10^3 Neutrophils (%) (Auto) 62 42-75 % Platelet Count 159 130-400 10^3/uL Potassium Level 3.8 3.6-5.0 MMOL/L Red Blood Count 3.69 L 4.35-5.85 10^6/uL Red Cell Distribution Width 12.5 10.0-14.5 % Sodium Level 129 L 135-145 MMOL/L Total Bilirubin 0.4 0.1-1.0 MG/DL Total Protein 6.6 6.4-8.2 G/DL White Blood Count 5.1 4.3-11.0 10^3/uL Urine Bacteria TRACE /HPF Urine Bilirubin NEGATIVE NEGATIVE Urine Casts PRESENT /LPF Urine Clarity CLEAR Urine Color YELLOW Urine Crystals NONE /LPF Urine Culture Indicated NO Urine Glucose (UA) NEGATIVE NEGATIVE Urine Hyaline Casts 2-5 H /LPF Urine Ketones NEGATIVE NEGATIVE Urine Leukocyte Esterase 1+ H NEGATIVE Urine Mucus NEGATIVE /LPF Urine Nitrite NEGATIVE NEGATIVE Urine Protein NEGATIVE NEGATIVE Urine RBC NONE /HPF Urine RBC (Auto) 1+ H NEGATIVE Urine Specific [place] 1.010 L 1.016-1.022 Urine Squamous Epithelial Cells 10-25 H /HPF Urine Urobilinogen NORMAL NORMAL MG/DL Urine WBC 0-2 /HPF Urine pH 5 5-9 My Orders Orders-RONY SALAZAR MD Cbc With Automated Diff (01/08/17 23:43) Comprehensive Metabolic Panel (01/08/17 23:43) Ua Culture If Indicated (01/08/17 23:43) Saline Lock/Iv-Start (01/08/17 23:43) Ns Iv 500 Ml (Sodium Chloride 0.9%) (01/08/17 23:43) Ns Iv 500 Ml (Sodium Chloride 0.9%) (01/09/17 00:33) Medications Given in ED Current Medications Medications Dose Ordered Sig/Oscar Route Start Time Stop Time Status Last Admin Dose Admin Sodium Chloride 500 ml @ 0 mls/hr Q0M ONCE IV 01/08/17 23:43 01/08/17 23:44 DC 01/08/17 23:50 500 MLS/HR Sodium Chloride 500 ml @ 0 mls/hr Q0M ONCE IV 01/09/17 00:33 01/09/17 00:34 DC 01/09/17 00:43 500 MLS/HR Vital Signs/I&O Vital Sign - Last 12Hours 01/08/17 23:08 Temp 100.5 Pulse 93 Resp 18 B/P 87/46 Pulse Ox 86 O2 Delivery Room Air Blood Pressure Mean: 60 Progress Note : Progress Note Seen and evaluated. IV, labs and UA. Normal saline 500 mL bolus. Monitor patient. Patient did have isolated single lower blood pressure on arrival but improved with IV fluids. She is mentating well. Monitor patient. Repeat normal saline 500 mL bolus. 0130: Patient ambulated to the bathroom by herself without difficulty. She is in no distress. Her blood pressure remains on the lower side but she is on the oxycodone and I do believe this may be having some effect. She is going to decrease the dose to half a tablet. She feels like she would do well at home and would like to go home. Her family lives right next door and we'll keep an eye on her. She is ready to go home now. Discharged home with return precautions. Patient and family verbalize understanding instructions and agreement with plan. Departure Impression Impression: Primary Impression: Dehydration Additional Impression: Shingles rash Qualified Code: B02.9 - Zoster without complications Disposition: 01 HOME, SELF-CARE Condition: Improved Departure-Patient Inst. Decision time for Depature: 01:38 Referrals: ELIESER SALVADOR DO (PCP) Primary Care Physician QUENTIN ORTIZ MD (Family) Primary Care Physician Patient Instructions: Dehydration, Adult (DC), Shingles (DC) Add. Discharge Instructions: All discharge instructions reviewed with patient and/or family. Voiced understanding. Drink plenty of fluids. Decrease pain medicine to one half tablet per dose. Follow-up with your DrDevon in one to 2 days for recheck. Return for worse pain, weakness, dizziness, decreased urination, breathing problems or other concerns as needed. RONY SALAZAR MD Jan 08, 2017 23:44
[2017-01-08 23:47] LABS: BASOPHILS # (AUTO) 0.1 10^3/uL (0.0-0.1); BASOPHILS % (AUTO) 1 % (0-10); EOSINOPHILS # (AUTO) 0.2 10^3/uL (0.0-0.3); EOSINOPHILS % (AUTO) 4 % (0-10); LYMPHOCYTES # (AUTO) 0.9 X 10^3 (1.0-4.0); LYMPHOCYTES % (AUTO) 17 % (12-44); MEAN CORPUSCULAR HEMOGLOBIN 31 PG (25-34); MEAN CORPUSCULAR HGB CONC 35 G/DL (32-36); MEAN CORPUSCULAR VOLUME 90 FL (80-99); MEAN PLATELET VOLUME 10.5 FL (7.4-10.4); MONOCYTES # (AUTO) 0.8 X 10^3 (0.0-1.0); MONOCYTES % (AUTO) 16 % (0-12); NEUTROPHILS # (AUTO) 3.2 X 10^3 (1.8-7.8); NEUTROPHILS % (AUTO) 62 % (42-75); PLATELET COUNT 159 10^3/uL (130-400); RED BLOOD COUNT 3.69 10^6/uL (4.35-5.85); RED CELL DISTRIBUTION WIDTH 12.5 % (10.0-14.5); WHITE BLOOD COUNT 5.1 10^3/uL (4.3-11.0)
[2017-01-09 00:13] LABS: ALBUMIN 3.5 G/DL (3.2-4.5); BILIRUBIN,TOTAL 0.4 MG/DL (0.1-1.0); CALCIUM 8.4 MG/DL (8.5-10.1); CREATININE SERUM 1.97 MG/DL (0.60-1.30); POTASSIUM 3.8 MMOL/L (3.6-5.0); TOTAL PROTEIN 6.6 G/DL (6.4-8.2)
[2017-01-09] MEDS ORDERED: NS IV 500 ML 500 ML IV ONE (00:33)
[2017-01-09 01:01] LABS: BILIRUBIN,URINE NEGATIVE (NEGATIVE); KETONES,URINE NEGATIVE (NEGATIVE); LEUKOCYTE ESTERASE ,URINE 1+ (NEGATIVE); NITRITE,URINE NEGATIVE (NEGATIVE); PH,URINE 5 (5-9); PROTEIN,URINE NEGATIVE (NEGATIVE); UROBILINOGEN,URINE NORMAL (NORMAL)
[2017-01-09 01:02] LABS: WBC,URINE 0-2 /HPF
[2017-01-09 01:43] VITALS: BP 86/63
== END 2017-01-09 01:43 | disposition home or self-care (01) ==
LOC: EDUNIT# 22:33 → ER 22:34
DX: E86.0 Dehydration (principal); B02.9 Zoster without complications; J44.9 Chronic obstructive pulmonary disease, unspecified; F17.210 Nicotine dependence, cigarettes, uncomplicated; Z79.82 Long term (current) use of aspirin; Z79.899 Other long term (current) drug therapy
CPT/HCPCS: 36415; 80053; 81000; 85025; 96360

== ENCOUNTER 2017-01-19 14:33 | Emergency (ER) | payer MEDICARE, MEDICAID ==
[~2017-01-19] VITALS: Ht 154.9 cm; Wt 44.0 kg
[2017-01-19] MEDS ORDERED: NS IV 1000 ML 1,000 ML IV SCH (16:00)
[2017-01-19 16:25] LABS: BASOPHILS # (AUTO) 0.1 10^3/uL (0.0-0.1); BASOPHILS % (AUTO) 1 % (0-10); EOSINOPHILS # (AUTO) 0.1 10^3/uL (0.0-0.3); EOSINOPHILS % (AUTO) 1 % (0-10); LYMPHOCYTES # (AUTO) 1.5 X 10^3 (1.0-4.0); LYMPHOCYTES % (AUTO) 21 % (12-44); MEAN CORPUSCULAR HEMOGLOBIN 31 PG (25-34); MEAN CORPUSCULAR HGB CONC 34 G/DL (32-36); MEAN CORPUSCULAR VOLUME 93 FL (80-99); MEAN PLATELET VOLUME 8.6 FL (7.4-10.4); MONOCYTES # (AUTO) 0.9 X 10^3 (0.0-1.0); MONOCYTES % (AUTO) 12 % (0-12); NEUTROPHILS # (AUTO) 4.8 X 10^3 (1.8-7.8); NEUTROPHILS % (AUTO) 65 % (42-75); PLATELET COUNT 451 10^3/uL (130-400); RED BLOOD COUNT 4.12 10^6/uL (4.35-5.85); RED CELL DISTRIBUTION WIDTH 13.3 % (10.0-14.5); WHITE BLOOD COUNT 7.3 10^3/uL (4.3-11.0)
--- NOTE | 2017-01-19 16:40 | ED General ---
General Chief Complaint: General Problems/Pain Stated Complaint: RASH Nursing Triage Note: AMBULATED TO ROOM 08 WITHOUT DIFFICULTY. HAS BEEN TO SEVERAL DR'S OVER THE LAST TWO WEEKS DUE TO SHINGLES. SHINGLES IS DRYING UP BUT NOW SHE THINKS SHE IS DEHYDRATED OVER THE ORDEAL. Nursing Sepsis Screen: No Definite Risk Source of Information: Patient History of Present Illness Time Seen by Provider: 15:35 Initial Comments This is the third visit over the last 2 weeks for this 82-year-old white female. I have known her for 25 years or more. She was found to have shingles over her left lower abdomen and upper pelvis at the initial visit. She was placed on acyclovir and has completed that course. She was also seen in [place] and by Dr. Valera at his office. She reports that she has had trouble with the pain medicines and the ability to have bowel movements. She has had no appetite. She feels she is dehydrated. Timing/Duration: Other (2 weeks) Allergies and Home Medications Allergies Coded Allergies: hydrochlorothiazide (Verified Allergy, Intermediate, RASH, 05/16/12) Sulfa (Sulfonamide Antibiotics) (Unverified Allergy, 09/01/11) Levofloxacin (Verified Adverse Reaction, Intermediate, SOA, 07/14/13) milk (Verified Adverse Reaction, Mild, upset stomach, 07/14/13) states cooked mild ok Home Medications Acyclovir 800 Mg Tablet, 800 MG PO Q4H, #28 Prescribed by: LOUISE REES on 01/07/17 1551 Aspirin 81 Mg Tabec, 81 MG PO DAILY, (Reported) Atenolol 25 Mg Tablet, 25 MG PO DAILY, (Reported) Furosemide 20 Mg Tablet, 20 MG PO DAILY, (Reported) Meloxicam 15 Mg Tablet, 1 EACH PO DAILY, (Reported) Oxycodone HCl/Acetaminophen 1 Each Tablet, 1 EACH PO Q4H PRN for PAIN, #14 Prescribed by: LOUISE REES on 01/07/171550 Pediatric Multivit Comb. No.49 1 Each Tab.chew, 2 EACH PO DAILY, (Reported) Potassium Chloride 10 Meq Capsule.sa, 10 MEQ PO DAILY, (Reported) Rabeprazole Sodium 20 Mg Tablet.dr, 20 MG PO DAILY, (Reported) [Combivent] , (Reported) [Singular] , (Reported) [Spirivia] , (Reported) Constitutional: see HPI EENTM: no symptoms reported Respiratory: no symptoms reported Cardiovascular: no symptoms reported Gastrointestinal: constipation, loss of appetite, nausea Genitourinary: decreased output Musculoskeletal: no symptoms reported Skin: no symptoms reported Psychiatric/Neurological: No Symptoms Reported Hematologic/Lymphatic: No Symptoms Reported Immunological/Allergic: no symptoms reported Past Viwwnda-Rmhena-Kgvxaf Hx Patient Social History Type Used: Cigarettes Recent Foreign Travel: No Contact w/Someone Who Travel: No Recent Infectious Disease Expo: No Recent Hopitalizations: Yes (COPD) Immunizations Up To Date Date of Pneumonia Vaccine: Oct 22, 2010 Surgeries HX Surgeries: Yes (mastectomy left) Respiratory Hx Respiratory Disorders: Yes Respiratory Disorders: COPD Cardiovascular Hx Cardiac Disorders: Yes (stress test Nov 2011 in [place], denies cardiac issues, heart cath neg) Neurological Hx Neurological Disorders: No Reproductive System Hx Reproductive Disorders: Yes Sexually Transmitted Disease: No Genitourinary Hx Genitourinary Disorders: No Gastrointestinal Hx Gastrointestinal Disorders: No Musculoskeletal Hx Musculoskeletal Disorders: Yes Musculoskeletal Disorders: Osteoporosis, Arthritis Endocrine Hx Endocrine Disorders: No HEENT HX ENT Disorders: No Cancer Hx Cancer: Yes (Left mastectomy) Cancer: Breast Psychosocial Hx Psychiatric Problems: No Integumentary HX Skin/Integumentary Disorder: Yes (SHINGLES 01/05) Blood Transfusions Hx Blood Disorders: No Family Medical History Significant Family History: No Pertinent Family Hx Physical Exam Vital Signs Vital Sign - Last 12Hours 01/19/17 15:09 Temp 98.0 Pulse 81 Resp 16 B/P (MAP) 100/80 Pulse Ox 94 Capillary Refill : Less Than 3 Seconds General Appearance: No Apparent Distress, WD/WN Eyes: Bilateral Eye Normal Inspection HEENT: Normal ENT Inspection Neck: Normal Inspection Respiratory: Chest Non Tender, Lungs Clear, Normal Breath Sounds, No Accessory Muscle Use, No Respiratory Distress Cardiovascular: Regular Rate, Rhythm, No Edema, No Gallop, No JVD, No Murmur, Normal Peripheral Pulses Gastrointestinal: Tenderness Extremity: Normal Capillary Refill, Normal Inspection, Normal Range of Motion, Non Tender, No Calf Tenderness, No Pedal Edema Neurologic/Psychiatric: Alert, Oriented x3, No Motor/Sensory Deficits, Normal Mood/Affect Skin: Other (There is a crusted and healing eruption over the left anterior and posterior iliac crest compatible with healing shingles) Lymphatic: No Adenopathy Progress/Results/Core Measures Results/Orders Lab Results Laboratory Tests Test 01/19/17 16:15 Range/Units White Blood Count 7.3 4.3-11.0 10^3/uL Red Blood Count 4.12 L 4.35-5.85 10^6/uL Hemoglobin 12.9 11.5-16.0 G/DL Hematocrit 38 35-52 % Mean Corpuscular Volume 93 80-99 FL Mean Corpuscular Hemoglobin 31 25-34 PG Mean Corpuscular Hemoglobin Concent 34 32-36 G/DL Red Cell Distribution Width 13.3 10.0-14.5 % Platelet Count 451 H 130-400 10^3/uL Mean Platelet Volume 8.6 7.4-10.4 FL Neutrophils (%) (Auto) 65 42-75 % Lymphocytes (%) (Auto) 21 12-44 % Monocytes (%) (Auto) 12 0-12 % Eosinophils (%) (Auto) 1 0-10 % Basophils (%) (Auto) 1 0-10 % Neutrophils # (Auto) 4.8 1.8-7.8 X 10^3 Lymphocytes # (Auto) 1.5 1.0-4.0 X 10^3 Monocytes # (Auto) 0.9 0.0-1.0 X 10^3 Eosinophils # (Auto) 0.1 0.0-0.3 10^3/uL Basophils # (Auto) 0.1 0.0-0.1 10^3/uL My Orders Orders - KAMINI JONES MD Cbc With Automated Diff (01/19/17 15:25) Comprehensive Metabolic Panel (01/19/17 15:25) Ns Iv 1000 Ml (Sodium Chloride 0.9%) (01/19/17 16:00) Vital Signs/I&O Vital Sign - Last 12Hours 01/19/17 15:09 Temp 98.0 Pulse 81 Resp 16 B/P (MAP) 100/80 Pulse Ox 94 Blood Pressure Mean: 87 Departure Communication Progress Notes The patient was counseled that her healing appeared to be perfectly on track by time. She was informed that the troubles may last as long as 6 weeks although we would hopes that they would be declining in symptomatology through this period of time time. Furthermore she should use as little of the pain relievers as possible. Impression Impression: Primary Impression: Shingles rash Disposition: 01 HOME, SELF-CARE Condition: Stable/Unchanged Departure-Patient Inst. Decision time for Depature: 16:45 Referrals: MADDISON VALERA MD (PCP) Primary Care Physician QUENTIN ORTIZ MD (Family) Primary Care Physician Add. Discharge Instructions: All discharge instructions reviewed with patient and/or family. Voiced understanding. Increase fluid intake. You may begin to place a very thin coat of Vaseline over a rash. If the lactulose does not give you a bowel movement, by MiraLAX 17 g once or twice daily. You may buy this [id number]. KAMINI JONES MD Jan 19, 2017 16:40
[2017-01-19 16:42] LABS: BILIRUBIN,TOTAL 0.5 MG/DL (0.1-1.0); CREATININE SERUM 1.78 MG/DL (0.60-1.30); POTASSIUM 4.3 MMOL/L (3.6-5.0); TOTAL PROTEIN 7.6 G/DL (6.4-8.2)
[2017-01-19 16:52] VITALS: BP 124/78
--- OUTSIDE RECORDS SUMMARY | 2017-02-11 08:48 | XMS REPORT | Continuity of Care Document ---
Author Author [facility] Organization [facility] Address Unknown Phone Unavailable Allergies Active Description Code Type Severity Reaction Onset Reported/Identified Relationship to Patient Clinical Status Yes Sulfa (Sulfonamide Antibiotics) [id number] Drug Allergy Unknown N/A 09/01/2011 Yes hydrochlorothiazide [id number] Drug Allergy Moderate RASH 05/16/2012 Yes levofloxacin [id number] Drug Allergy Moderate SOA 07/14/2013 Yes milk [id number] Drug Allergy Mild upset stomach 07/14/2013 Medications Problems Date Dx Coded Attending Type Code Diagnosis Diagnosed By 09/02/2011 Ot 305.1 TOBACCO USE DISORDER 09/02/2011 Ot 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 09/02/2011 Ot 428.0 CONGESTIVE HEART FAILURE NOS 09/02/2011 Ot 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 09/02/2011 Ot 428.33 ACUTE CHRONIC DIASTOLIC HRT FAILURE 09/02/2011 Ot 496 CHR AIRWAY OBSTRUCT NEC 09/02/2011 Ot 790.6 ABN BLOOD CHEMISTRY NEC 05/16/2012 Ot 305.1 TOBACCO USE DISORDER 05/16/2012 Ot 401.9 HYPERTENSION NOS 05/16/2012 Ot 428.0 CONGESTIVE HEART FAILURE NOS 05/16/2012 Ot 491.21 OBSTR CHRONIC BRONCHITIS, W (ACUTE) EXAC 05/16/2012 Ot V10.3 HX OF BREAST MALIGNANCY 05/16/2012 Ot V45.71 ACQUIRED ABSENCE OF BREAST AND NIPPLE 08/07/2012 Ot 305.1 TOBACCO USE DISORDER 08/07/2012 Ot 401.9 HYPERTENSION NOS 08/07/2012 Ot 428.0 CONGESTIVE HEART FAILURE NOS 08/07/2012 Ot 496 CHR AIRWAY OBSTRUCT NEC 08/07/2012 Ot 593.9 RENAL URETERAL DIS NOS 07/14/2013 BI SERNA MD Ot 719.7 DIFFICULTY IN WALKING 07/14/2013 BI SERNA MD Ot 783.0 ANOREXIA 09/06/2013 BRUEGGEMANN MD, BI T Ot 428.0 CONGESTIVE HEART FAILURE NOS 09/06/2013 KAREEM PETERSON, BI Gandhi Ot 780.79 OTH MALAISE FATIGUE 09/06/2013 KAREEM PETERSON, BI Gandhi Ot 799.02 HYPOXEMIA 01/07/2017 ANGEL PETERSON, QUENTIN Gerardo Ot 562.10 DIVERTICULOSIS COLON (W/O MENT OF HEMORR 01/07/2017 ANGEL PETERSON, QUENTIN Gerardo Ot 592.0 CALCULUS OF KIDNEY 01/07/2017 ANGEL PETERSON, QUENTIN Gerardo Ot 789.00 ABDOMINAL PAIN, UNSPECIFIED SITE 01/09/2017 LOUISE REES APRN Ot B02.9 ZOSTER WITHOUT COMPLICATIONS 01/09/2017 LOUISE REES [employer]OR [employer] Ot J44.9 CHRONIC OBSTRUCTIVE PULMONARY DISEASE, U 01/09/2017 LOUISE REES [employer] Ot R21 RASH AND OTHER NONSPECIFIC SKIN ERUPTION 01/09/2017 LOUISE REES [employer] Ot R42 DIZZINESS AND GIDDINESS 01/09/2017 LOUISE REES [employer] Ot R53.1 WEAKNESS 01/09/2017 LOUISE REES [employer] Ot Z79.82 NURSE PLASTICS (CURRENT) USE OF ASPIRIN 01/09/2017 LOUISE REES [employer] Ot Z79.899 OTHER NURSE PLASTICS (CURRENT) DRUG THERAPY 01/13/2017 LOUISE REES [employer] Ot B02.9 ZOSTER WITHOUT COMPLICATIONS 01/13/2017 LOUISE REES [employer] Ot J44.9 CHRONIC OBSTRUCTIVE PULMONARY DISEASE, U 01/13/2017 LOUISE REES [employer] Ot R21 RASH AND OTHER NONSPECIFIC SKIN ERUPTION 01/13/2017 LOUISE REES [employer] Ot R42 DIZZINESS AND GIDDINESS 01/13/2017 LOUISE REES [employer] Ot R53.1 WEAKNESS 01/13/2017 LOUISE REES [employer] Ot Z79.82 NURSE PLASTICS (CURRENT) USE OF ASPIRIN 01/13/2017 LOUISE REES [employer] Ot Z79.899 OTHER CARE HOME (CURRENT) DRUG THERAPY 01/19/2017 KAMINI JONES MD Ot B02.9 ZOSTER WITHOUT COMPLICATIONS 01/19/2017 KAMINI JONES MD Ot Z79.82 NURSE PLASTICS (CURRENT) USE OF ASPIRIN 01/19/2017 KAMINI JONES MD Ot Z79.899 OTHER NURSE PLASTICS (CURRENT) DRUG THERAPY 01/19/2017 ROBERT PETERSON, KAMINI Yañez Ot Z85.3 PERSONAL HISTORY OF MALIGNANT NEOPLASM O 01/19/2017 KAMINI JONES MD, Ot Z90.12 ACQUIRED ABSENCE OF LEFT BREAST AND NIPP Procedures Results Test Result Range Complete blood count (CBC) with automated white blood cell (WBC) differential - 01/07/17 15:13 Blood leukocytes automated count (number/volume) 5.0 10*3/ uL 4.3-11.0 Blood erythrocytes automated count (number/volume) 4.08 10*6 /uL 4.35-5.85 Venous blood hemoglobin measurement (mass/volume) 12.8 g/dL 11.5-16.0 Blood hematocrit (volume fraction) 37 % 35-52 Automated erythrocyte mean corpuscular volume 91 [foz_us] 80-99 Automated erythrocyte mean corpuscular hemoglobin (mass per erythrocyte) 31 pg 25-34 Automated erythrocyte mean corpuscular hemoglobin concentration measurement ( mass/volume) 35 g/dL 32-36 Automated erythrocyte distribution width ratio 12.3 % 10.0-14.5 Automated blood platelet count (count/volume) 207 10*3/uL 130-400 Automated blood platelet mean volume measurement 9.9 [foz_us ] 7.4-10.4 Automated blood neutrophils/100 leukocytes 80 % 42-75 Automated blood lymphocytes/100 leukocytes 9 % 12-44 Blood monocytes/100 leukocytes 8 % 0-12 Automated blood eosinophils/100 leukocytes 2 % 0-10 Automated blood basophils/100 leukocytes 1 % 0-10 Blood neutrophils automated count (number/volume) 4.0 10*3 1.8-7.8 Blood lymphocytes automated count (number/volume) 0.5 10*3 1.0-4.0 Blood monocytes automated count (number/volume) 0.4 10*3 0.0-1.0 Automated eosinophil count 0.1 10*3/uL 0.0-0.3 Automated blood basophil count (count/volume) 0.0 10*3/uL 0.0-0.1 Comprehensive metabolic panel - 01/07/17 15:13 Serum or plasma sodium measurement (moles/volume) 133 mmol/ L 135-145 Serum or plasma potassium measurement (moles/volume) 3.5 mmol/L 3.6-5.0 Serum or plasma chloride measurement (moles/volume) 100 mmol /L 98-107 Carbon dioxide 21 mmol/L 21-32 Serum or plasma anion gap determination (moles/volume) 12 mmol/L 5-14 Serum or plasma urea nitrogen measurement (mass/volume) 19 mg/dL 7-18 Serum or plasma creatinine measurement (mass/volume) 1.67 mg /dL 0.60-1.30 Serum or plasma urea nitrogen/creatinine mass ratio 11 NRG Serum or plasma creatinine measurement with calculation of estimated glomerular filtration rate 29 NRG Serum or plasma glucose measurement (mass/volume) 104 mg/dL 70-105 Serum or plasma calcium measurement (mass/volume) 8.9 mg/dL 8.5-10.1 Serum or plasma total bilirubin measurement (mass/volume) 0.4 mg/dL 0.1-1.0 Serum or plasma alkaline phosphatase measurement (enzymatic activity/volume) 87 U/L 40-136 Serum or plasma aspartate aminotransferase measurement (enzymatic activity/ volume) 19 U/L 5-34 Serum or plasma alanine aminotransferase measurement (enzymatic activity/volume ) 13 U/L 0-55 Serum or plasma protein measurement (mass/volume) 7.1 g/dL 6.4-8.2 Serum or plasma albumin measurement (mass/volume) 3.9 g/dL 3.2-4.5 Complete blood count (CBC) with automated white blood cell (WBC) differential - 01/08/17 23:35 Blood leukocytes automated count (number/volume) 5.1 10*3/ uL 4.3-11.0 Blood erythrocytes automated count (number/volume) 3.69 10*6 /uL 4.35-5.85 Venous blood hemoglobin measurement (mass/volume) 11.6 g/dL 11.5-16.0 Blood hematocrit (volume fraction) 33 % 35-52 Automated erythrocyte mean corpuscular volume 90 [foz_us] 80-99 Automated erythrocyte mean corpuscular hemoglobin (mass per erythrocyte) 31 pg 25-34 Automated erythrocyte mean corpuscular hemoglobin concentration measurement ( mass/volume) 35 g/dL 32-36 Automated erythrocyte distribution width ratio 12.5 % 10.0-14.5 Automated blood platelet count (count/volume) 159 10*3/uL 130-400 Automated blood platelet mean volume measurement 10.5 [foz_ us] 7.4-10.4 Automated blood neutrophils/100 leukocytes 62 % 42-75 Automated blood lymphocytes/100 leukocytes 17 % 12-44 Blood monocytes/100 leukocytes 16 % 0-12 Automated blood eosinophils/100 leukocytes 4 % 0-10 Automated blood basophils/100 leukocytes 1 % 0-10 Blood neutrophils automated count (number/volume) 3.2 10*3 1.8-7.8 Blood lymphocytes automated count (number/volume) 0.9 10*3 1.0-4.0 Blood monocytes automated count (number/volume) 0.8 10*3 0.0-1.0 Automated eosinophil count 0.2 10*3/uL 0.0-0.3 Automated blood basophil count (count/volume) 0.1 10*3/uL 0.0-0.1 Comprehensive metabolic panel - 01/08/17 23:35 Serum or plasma sodium measurement (moles/volume) 129 mmol/ L 135-145 Serum or plasma potassium measurement (moles/volume) 3.8 mmol/L 3.6-5.0 Serum or plasma chloride measurement (moles/volume) 97 mmol/ L 98-107 Carbon dioxide 20 mmol/L 21-32 Serum or plasma anion gap determination (moles/volume) 12 mmol/L 5-14 Serum or plasma urea nitrogen measurement (mass/volume) 22 mg/dL 7-18 Serum or plasma creatinine measurement (mass/volume) 1.97 mg /dL 0.60-1.30 Serum or plasma urea nitrogen/creatinine mass ratio 11 NRG Serum or plasma creatinine measurement with calculation of estimated glomerular filtration rate 24 NRG Serum or plasma glucose measurement (mass/volume) 117 mg/dL 70-105 Serum or plasma calcium measurement (mass/volume) 8.4 mg/dL 8.5-10.1 Serum or plasma total bilirubin measurement (mass/volume) 0.4 mg/dL 0.1-1.0 Serum or plasma alkaline phosphatase measurement (enzymatic activity/volume) 79 U/L 40-136 Serum or plasma aspartate aminotransferase measurement (enzymatic activity/ volume) 18 U/L 5-34 Serum or plasma alanine aminotransferase measurement (enzymatic activity/volume ) 12 U/L 0-55 Serum or plasma protein measurement (mass/volume) 6.6 g/dL 6.4-8.2 Serum or plasma albumin measurement (mass/volume) 3.5 g/dL 3.2-4.5 Complete urinalysis with reflex to culture - 01/09/17 00:24 Urine color determination YELLOW NRG Urine clarity determination CLEAR NRG Urine pH measurement by test strip 5 5- 9 Specific gravity of urine by test strip 1.010 1.016-1.022 Urine protein assay by test strip, semi-quantitative NEGATIVE NEGATIVE Urine glucose detection by automated test strip NEGATIVE NEGATIVE Erythrocytes detection in urine sediment by light microscopy 1+ NEGATIVE Urine ketones detection by automated test strip NEGATIVE NEGATIVE Urine nitrite detection by test strip NEGATIVE NEGATIVE Urine total bilirubin detection by test strip NEGATIVE NEGATIVE Urine urobilinogen measurement by automated test strip (mass/volume) NORMAL NORMAL Urine leukocyte esterase detection by dipstick 1+ NEGATIVE Automated urine sediment erythrocyte count by microscopy (number/high power field) NONE NRG Automated urine sediment leukocyte count by microscopy (number/high power field ) [HPF] NRG Bacteria detection in urine sediment by light microscopy TRACE NRG Squamous epithelial cells detection in urine sediment by light microscopy 10-25 NRG Crystals detection in urine sediment by light microscopy NONE NRG Casts detection in urine sediment by light microscopy PRESENT NRG Mucus detection in urine sediment by light microscopy NEGATIVE NRG Complete urinalysis with reflex to culture NO NRG Hyaline casts detection in urine sediment by light microscopy 2-5 NRG Complete blood count (CBC) with automated white blood cell (WBC) differential - 01/19/17 16:15 Blood leukocytes automated count (number/volume) 7.3 10*3/ uL 4.3-11.0 Blood erythrocytes automated count (number/volume) 4.12 10*6 /uL 4.35-5.85 Venous blood hemoglobin measurement (mass/volume) 12.9 g/dL 11.5-16.0 Blood hematocrit (volume fraction) 38 % 35-52 Automated erythrocyte mean corpuscular volume 93 [foz_us] 80-99 Automated erythrocyte mean corpuscular hemoglobin (mass per erythrocyte) 31 pg 25-34 Automated erythrocyte mean corpuscular hemoglobin concentration measurement ( mass/volume) 34 g/dL 32-36 Automated erythrocyte distribution width ratio 13.3 % 10.0-14.5 Automated blood platelet count (count/volume) 451 10*3/uL 130-400 Automated blood platelet mean volume measurement 8.6 [foz_us ] 7.4-10.4 Automated blood neutrophils/100 leukocytes 65 % 42-75 Automated blood lymphocytes/100 leukocytes 21 % 12-44 Blood monocytes/100 leukocytes 12 % 0-12 Automated blood eosinophils/100 leukocytes 1 % 0-10 Automated blood basophils/100 leukocytes 1 % 0-10 Blood neutrophils automated count (number/volume) 4.8 10*3 1.8-7.8 Blood lymphocytes automated count (number/volume) 1.5 10*3 1.0-4.0 Blood monocytes automated count (number/volume) 0.9 10*3 0.0-1.0 Automated eosinophil count 0.1 10*3/uL 0.0-0.3 Automated blood basophil count (count/volume) 0.1 10*3/uL 0.0-0.1 Comprehensive metabolic panel - 01/19/17 16:15 Serum or plasma sodium measurement (moles/volume) 135 mmol/ L 135-145 Serum or plasma potassium measurement (moles/volume) 4.3 mmol/L 3.6-5.0 Serum or plasma chloride measurement (moles/volume) 99 mmol/ L 98-107 Carbon dioxide 28 mmol/L 21-32 Serum or plasma anion gap determination (moles/volume) 8 mmol/L 5-14 Serum or plasma urea nitrogen measurement (mass/volume) 18 mg/dL 7-18 Serum or plasma creatinine measurement (mass/volume) 1.78 mg /dL 0.60-1.30 Serum or plasma urea nitrogen/creatinine mass ratio 10 NRG Serum or plasma creatinine measurement with calculation of estimated glomerular filtration rate 27 NRG Serum or plasma glucose measurement (mass/volume) 97 mg/dL 70-105 Serum or plasma calcium measurement (mass/volume) 9.0 mg/dL 8.5-10.1 Serum or plasma total bilirubin measurement (mass/volume) 0.5 mg/dL 0.1-1.0 Serum or plasma alkaline phosphatase measurement (enzymatic activity/volume) 87 U/L 40-136 Serum or plasma aspartate aminotransferase measurement (enzymatic activity/ volume) 20 U/L 5-34 Serum or plasma alanine aminotransferase measurement (enzymatic activity/volume ) 11 U/L 0-55 Serum or plasma protein measurement (mass/volume) 7.6 g/dL 6.4-8.2 Serum or plasma albumin measurement (mass/volume) 4.0 g/dL 3.2-4.5 Complete urinalysis with reflex to culture - 02/05/17 10:00 Urine color determination YELLOW NRG Urine clarity determination CLEAR NRG Urine pH measurement by test strip 6 5- 9 Specific gravity of urine by test strip 1.015 1.016-1.022 Urine protein assay by test strip, semi-quantitative NEGATIVE NEGATIVE Urine glucose detection by automated test strip NEGATIVE NEGATIVE Erythrocytes detection in urine sediment by light microscopy NEGATIVE NEGATIVE Urine ketones detection by automated test strip NEGATIVE NEGATIVE Urine nitrite detection by test strip NEGATIVE NEGATIVE Urine total bilirubin detection by test strip NEGATIVE NEGATIVE Urine urobilinogen measurement by automated test strip (mass/volume) NORMAL NORMAL Urine leukocyte esterase detection by dipstick 1+ NEGATIVE Automated urine sediment erythrocyte count by microscopy (number/high power field) RARE NRG Automated urine sediment leukocyte count by microscopy (number/high power field ) RARE NRG Bacteria detection in urine sediment by light microscopy FEW NRG Squamous epithelial cells detection in urine sediment by light microscopy 10-25 NRG Crystals detection in urine sediment by light microscopy NONE NRG Casts detection in urine sediment by light microscopy NONE NRG Mucus detection in urine sediment by light microscopy NEGATIVE NRG Complete urinalysis with reflex to culture NO NRG Complete blood count (CBC) with automated white blood cell (WBC) differential - 02/05/17 10:10 Blood leukocytes automated count (number/volume) 9.3 10*3/ uL 4.3-11.0 Blood erythrocytes automated count (number/volume) 4.02 10*6 /uL 4.35-5.85 Venous blood hemoglobin measurement (mass/volume) 12.5 g/dL 11.5-16.0 Blood hematocrit (volume fraction) 38 % 35-52 Automated erythrocyte mean corpuscular volume 93 [foz_us] 80-99 Automated erythrocyte mean corpuscular hemoglobin (mass per erythrocyte) 31 pg 25-34 Automated erythrocyte mean corpuscular hemoglobin concentration measurement ( mass/volume) 33 g/dL 32-36 Automated erythrocyte distribution width ratio 13.7 % 10.0-14.5 Automated blood platelet count (count/volume) 393 10*3/uL 130-400 Automated blood platelet mean volume measurement 9.7 [foz_us ] 7.4-10.4 Automated blood neutrophils/100 leukocytes 76 % 42-75 Automated blood lymphocytes/100 leukocytes 15 % 12-44 Blood monocytes/100 leukocytes 8 % 0-12 Automated blood eosinophils/100 leukocytes 1 % 0-10 Automated blood basophils/100 leukocytes 0 % 0-10 Blood neutrophils automated count (number/volume) 7.1 10*3 1.8-7.8 Blood lymphocytes automated count (number/volume) 1.4 10*3 1.0-4.0 Blood monocytes automated count (number/volume) 0.8 10*3 0.0-1.0 Automated eosinophil count 0.1 10*3/uL 0.0-0.3 Automated blood basophil count (count/volume) 0.0 10*3/uL 0.0-0.1 Comprehensive metabolic panel - 02/05/17 10:10 Serum or plasma sodium measurement (moles/volume) 138 mmol/ L 135-145 Serum or plasma potassium measurement (moles/volume) 3.8 mmol/L 3.6-5.0 Serum or plasma chloride measurement (moles/volume) 100 mmol /L 98-107 Carbon dioxide 27 mmol/L 21-32 Serum or plasma anion gap determination (moles/volume) 11 mmol/L 5-14 Serum or plasma urea nitrogen measurement (mass/volume) 24 mg/dL 7-18 Serum or plasma creatinine measurement (mass/volume) 1.62 mg /dL 0.60-1.30 Serum or plasma urea nitrogen/creatinine mass ratio 15 NRG Serum or plasma creatinine measurement with calculation of estimated glomerular filtration rate 30 NRG Serum or plasma glucose measurement (mass/volume) 91 mg/dL 70-105 Serum or plasma calcium measurement (mass/volume) 9.5 mg/dL 8.5-10.1 Serum or plasma total bilirubin measurement (mass/volume) 0.6 mg/dL 0.1-1.0 Serum or plasma alkaline phosphatase measurement (enzymatic activity/volume) 92 U/L 40-136 Serum or plasma aspartate aminotransferase measurement (enzymatic activity/ volume) 14 U/L 5-34 Serum or plasma alanine aminotransferase measurement (enzymatic activity/volume ) 10 U/L 0-55 Serum or plasma protein measurement (mass/volume) 8.1 g/dL 6.4-8.2 Serum or plasma albumin measurement (mass/volume) 4.2 g/dL 3.2-4.5 Serum or plasma C reactive protein measurement (mass/volume) - 02/05/17 10:10 Serum or plasma C reactive protein measurement (mass/volume) 4.47 mg/dL 0.00-0.50 Encounters ACCT No. Visit Date/Time Discharge Status Pt. Type Provider Facility Loc./Unit Complaint [id number] 01/30/2017 14:30:00 2016 14:59:00 DIS Emergency LOUISE REES APRN [facility] ER PAINFUL RASH [id number] 01/19/2017 14:37:00 2016 16:52:00 DIS Emergency ROBERT PETERSON, KAMINI Yañez [facility] ER RASH [id number] 01/08/2017 22:34:00 2016 01:43:00 DIS Emergency MARIE PETERSON, RONY Doran [facility] ER DIFFICULTY URINATING/LOW BP [id number] 01/07/2017 13:55:00 2016 15:56:00 DIS Outpatient LOUISE REES APRN [facility] ER WEAKNESS/DIZZINESS [id number] 09/06/2013 09:05:00 2012 12:12:00 DIS Emergency KAREEM PETERSON, BI Gandhi [facility] ER ACUTE EXACERBATION OF CHF HYOIXIA [id number] 07/14/2013 18:02:00 2012 19:16:00 DIS Emergency KAREEM PETERSON, BI Gandhi [facility] ER WEAKNESS [id number] 06/20/2013 08:50:00 2012 23:59:59 CLS Outpatient QUENTIN ORTIZ MD [facility] RAD ABD PAIN [id number] 02/05/2017 10:18:00 Document Registration [id number] 08/06/2012 23:20:00 Document Registration [id number] 05/16/2012 02:02:00 Document Registration [id number] 09/01/2011 01:41:00 Document Registration
== END 2017-01-19 16:52 | disposition home or self-care (01) ==
LOC: EDUNIT# 14:33 → ER 14:37
DX: B02.9 Zoster without complications (principal); Z79.82 Long term (current) use of aspirin; Z79.899 Other long term (current) drug therapy; Z90.12 Acquired absence of left breast and nipple; Z85.3 Personal history of malignant neoplasm of breast
CPT/HCPCS: 36415; 80053; 85025; 96360

== ENCOUNTER 2017-01-30 14:26 | Emergency (ER) | payer MEDICARE, MEDICAID ==
[~2017-01-30] VITALS: Ht 157.5 cm; Wt 49.9 kg
[2017-01-30] MEDS ORDERED: LIDO700A6 TP (14:50)
[2017-01-30] MEDS ORDERED: OXYC-471 PO (14:50)
--- NOTE | 2017-01-30 14:50 | ED Integumentary General ---
General Chief Complaint: Skin/Wound Problems Stated Complaint: PAINFUL RASH Source: patient Exam Limitations: no limitations History of Present Illness Time seen by provider: 14:47 Initial Comments To ER with persistent pain to the left flank from her shingles rash. This will be her fourth visit to the emergency room for this. She is currently out of her oxycodone 5/325 which she states "only helps a little bit" but she was still like some more of them. She has tried lidocaine ointment which helps for about 30 minutes and that's it. She has also been seen at [facility] for this. She was given a prescription for Neurontin to help with the pain that read that one of the side effects included dizziness so she decided not to fill that prescription. Timing/Duration: just prior to arrival Associated Symptoms: denies symptoms Allergies and Home Medications Allergies Coded Allergies: hydrochlorothiazide (Verified Allergy, Intermediate, RASH, 05/16/12) Sulfa (Sulfonamide Antibiotics) (Unverified Allergy, 09/01/11) Levofloxacin (Verified Adverse Reaction, Intermediate, SOA, 07/14/13) milk (Verified Adverse Reaction, Mild, upset stomach, 07/14/13) states cooked mild ok Home Medications Acyclovir 800 Mg Tablet, 800 MG PO Q4H, #28 Prescribed by: LOUISE REES on 01/07/17 1551 Aspirin 81 Mg Tabec, 81 MG PO DAILY, (Reported) Atenolol 25 Mg Tablet, 25 MG PO DAILY, (Reported) Furosemide 20 Mg Tablet, 20 MG PO DAILY, (Reported) Meloxicam 15 Mg Tablet, 1 EACH PO DAILY, (Reported) Oxycodone HCl/Acetaminophen 1 Each Tablet, 1 EACH PO Q4H PRN for PAIN, #14 Prescribed by: LOUISE REES on 01/07/17 1551 Pediatric Multivit Comb. No.49 1 Each Tab.chew, 2 EACH PO DAILY, (Reported) Potassium Chloride 10 Meq Capsule.sa, 10 MEQ PO DAILY, (Reported) Rabeprazole Sodium 20 Mg Tablet.dr, 20 MG PO DAILY, (Reported) [Combivent] , (Reported) [Singular] , (Reported) [Spirivia] , (Reported) Constitutional: see HPI EENTM: see HPI Respiratory: no symptoms reported Cardiovascular: no symptoms reported Genitourinary: no symptoms reported Musculoskeletal: no symptoms reported Skin: see HPI Psychiatric/Neurological: No Symptoms Reported Past Eiejfmj-Ukayvx-Qiwwlh Hx Patient Social History Type Used: Cigarettes Recent Foreign Travel: No Contact w/Someone Who Travel: No Recent Hopitalizations: Yes (COPD) Immunizations Up To Date Date of Pneumonia Vaccine: Oct 22, 2010 Surgeries HX Surgeries: Yes (mastectomy left) Respiratory Hx Respiratory Disorders: Yes Respiratory Disorders: COPD Cardiovascular Hx Cardiac Disorders: Yes (stress test Nov 2011 in [place], denies cardiac issues, heart cath neg) Neurological Hx Neurological Disorders: No Reproductive System Hx Reproductive Disorders: Yes Sexually Transmitted Disease: No Genitourinary Hx Genitourinary Disorders: No Gastrointestinal Hx Gastrointestinal Disorders: No Musculoskeletal Hx Musculoskeletal Disorders: Yes Musculoskeletal Disorders: Osteoporosis, Arthritis Endocrine Hx Endocrine Disorders: No HEENT HX ENT Disorders: No Cancer Hx Cancer: Yes (Left mastectomy) Cancer: Breast Psychosocial Hx Psychiatric Problems: No Integumentary HX Skin/Integumentary Disorder: Yes (SHINGLES 01/05) Blood Transfusions Hx Blood Disorders: No Family Medical History Significant Family History: No Pertinent Family Hx Physical Exam Vital Signs Capillary Refill : General Appearance: WD/WN, no apparent distress HEENT: PERRL/EOMI, normal ENT inspection Neck: non-tender, full range of motion Respiratory: no respiratory distress, no accessory muscle use Gastrointestinal: non tender, soft Neurologic/Psychiatric: alert, normal mood/affect, oriented x 3 Skin: normal color, warm/dry, other (there is a persistent erythematous rash to the left flank but all of the vesicles have healed over and there is no crusting) Departure Impression Impression: Primary Impression: Neuralgia, post-herpetic Disposition: 01 HOME, SELF-CARE Condition: Stable Departure-Patient Inst. Decision time for Depature: 14:48 Referrals: MADDISON VALERA MD (PCP/Family) Primary Care Physician Patient Instructions: NO INSTRUCTIONS GIVEN Add. Discharge Instructions: 1. You need to fill the prescription at the pharmacy for gabapentin that someone has already called in for you 2. Apply the lidocaine patch as directed All discharge instructions reviewed with patient and/or family. Voiced understanding. Scripts Oxycodone HCl/Acetaminophen (Oxycodone-Acetaminophen 5-325) 1 Each Tablet 1 EACH PO Q4H, #14 TAB Prov: LOUISE REES DOOR SERVICEMAN 01/30/17 Lidocaine (Lidoderm) 700 Mg Adh..patch 700 MG TP BID, #10 PATCH Prov: LOUISE REES APRN 01/30/17 LOUISE REES APRN Jan 30, 2017 14:50
[2017-01-30 14:59] VITALS: BP 126/78
== END 2017-01-30 14:59 | disposition home or self-care (01) ==
LOC: EDUNIT# 14:26 → ER 14:30
DX: B02.29 Other postherpetic nervous system involvement (principal); J44.9 Chronic obstructive pulmonary disease, unspecified; Z79.82 Long term (current) use of aspirin; Z79.899 Other long term (current) drug therapy
CPT/HCPCS: 99281

== ENCOUNTER 2017-02-05 09:38 | Emergency (ER) | payer MEDICARE, MEDICAID ==
[~2017-02-05] VITALS: Ht 154.9 cm; Wt 46.7 kg
[~2017-02-05 09:38] MED LIST changes: +LIDO700A6 TP; +OXYC-471 PO
[2017-02-05] MEDS ORDERED: GABA-486 (09:55)
[2017-02-05] MEDS ORDERED: HYDR-3820 (09:55)
[2017-02-05 10:07] LABS: BILIRUBIN,URINE NEGATIVE (NEGATIVE); KETONES,URINE NEGATIVE (NEGATIVE); LEUKOCYTE ESTERASE ,URINE 1+ (NEGATIVE); NITRITE,URINE NEGATIVE (NEGATIVE); PH,URINE 6 (5-9); PROTEIN,URINE NEGATIVE (NEGATIVE); UROBILINOGEN,URINE NORMAL (NORMAL)
[2017-02-05 10:18] LABS: WBC,URINE RARE /HPF
[2017-02-05 10:23] LABS: BASOPHILS % (AUTO) 0 % (0-10); EOSINOPHILS # (AUTO) 0.1 10^3/uL (0.0-0.3); EOSINOPHILS % (AUTO) 1 % (0-10); LYMPHOCYTES # (AUTO) 1.4 X 10^3 (1.0-4.0); LYMPHOCYTES % (AUTO) 15 % (12-44); MEAN CORPUSCULAR HEMOGLOBIN 31 PG (25-34); MEAN CORPUSCULAR HGB CONC 33 G/DL (32-36); MEAN CORPUSCULAR VOLUME 93 FL (80-99); MEAN PLATELET VOLUME 9.7 FL (7.4-10.4); MONOCYTES # (AUTO) 0.8 X 10^3 (0.0-1.0); MONOCYTES % (AUTO) 8 % (0-12); NEUTROPHILS # (AUTO) 7.1 X 10^3 (1.8-7.8); NEUTROPHILS % (AUTO) 76 % (42-75); PLATELET COUNT 393 10^3/uL (130-400); RED BLOOD COUNT 4.02 10^6/uL (4.35-5.85); RED CELL DISTRIBUTION WIDTH 13.7 % (10.0-14.5); WHITE BLOOD COUNT 9.3 10^3/uL (4.3-11.0)
[2017-02-05 10:45] LABS: ALBUMIN 4.2 G/DL (3.2-4.5); BILIRUBIN,TOTAL 0.6 MG/DL (0.1-1.0); CALCIUM 9.5 MG/DL (8.5-10.1); CREATININE SERUM 1.62 MG/DL (0.60-1.30); POTASSIUM 3.8 MMOL/L (3.6-5.0); TOTAL PROTEIN 8.1 G/DL (6.4-8.2); hs C REACTIVE PROTEIN 4.47 MG/DL (0.00-0.50)
--- NOTE | 2017-02-05 11:56 | Diagnostic Imaging Report ---
PROCEDURE: CT abdomen and pelvis without contrast. TECHNIQUE: Multiple contiguous axial images were obtained through the abdomen and pelvis without the use of intravenous contrast. INDICATION: Left groin pain. History of diverticulitis. History of shingles. FINDINGS: The lung bases demonstrate emphysema changes and patchy consolidation or atelectasis in the left lower lobe. The descending thoracic aorta is ectatic, dilated to 3.2 cm in caliber with no significant change from 2015 exam measurements of 3.1 cm. The liver, spleen, pancreas and adrenal glands appear unremarkable. There are layering stones in the gallbladder. The abdominal aorta is normal in caliber. There are no significantly enlarged lymph nodes seen. Hilar vascular calcifications are seen in the kidneys with lower pole nonobstructive stones measuring up to 3 mm in size in the the right kidney. No definitive stone in the left kidney. Calcifications in the pelvis appear to be related to phleboliths with no ureteric or bladder stones. The left adnexa demonstrates a cystic lesion stable from 2015 measuring 1.5 cm compatible with benign etiology. There is the suggestion of sutures near the left adnexa and this could be a postoperative chronic seroma. There is diverticulosis mostly involving the sigmoid colon with no diverticulitis. No bowel obstruction. The osseous structures demonstrate left convexity scoliosis. IMPRESSION: 1. Diverticulosis. No diverticulitis. 2. Layering calcified gallstones with no evidence of cholecystitis. 3. The calcifications in the renal valeria are mostly vascular with the suggestion of a 3 mm lower pole right kidney stone. No hydronephrosis. No ureteric or bladder stones. Dictated by: Dictated on workstation # [id number]
[2017-02-05] MEDS ORDERED: ACYC800T PO (12:13)
--- NOTE | 2017-02-05 12:13 | ED Abdominal Pain ---
General Chief Complaint: Abdominal/GI Problems Stated Complaint: LEFT GROIN PAIN Nursing Triage Note: AMB TO ED REPORTS HAS HAS SHINGLES. NOW HAVING L GROIN PAIN. Sepsis Screen: No Definite Risk Source of Information: Patient, Old Records Exam Limitations: No Limitations History of Present Illness Time Seen By Provider: 09:50 Initial Comments This 82-year-old woman presents to emergency room with complaints of left lower quadrant and groin pain. She has a history of diverticulosis and is concerned she may be having an internal cause of pain. She does presently have shingles which she has been treating for the past few weeks. However, this pain is new and she is not sure it is associated with the shingles as the shingles appear to be improving overall. She denies any dysuria, vomiting, diarrhea, or fever. Allergies and Home Medications Allergies Coded Allergies: hydrochlorothiazide (Verified Allergy, Intermediate, RASH, 05/16/12) Sulfa (Sulfonamide Antibiotics) (Unverified Allergy, 09/01/11) Levofloxacin (Verified Adverse Reaction, Intermediate, SOA, 07/14/13) milk (Verified Adverse Reaction, Mild, upset stomach, 07/14/13) states cooked mild ok Home Medications Acyclovir 800 Mg Tablet, 800 MG PO Q4H, #28 Prescribed by: LOUISE REES on 01/07/17 1551 Acyclovir 800 Mg Tablet, 800 MG PO QID, #28 Prescribed by: BI BORRERO on 02/05/17 1213 Aspirin 81 Mg Tabec, 81 MG PO DAILY, (Reported) Atenolol 25 Mg Tablet, 25 MG PO DAILY, (Reported) Furosemide 20 Mg Tablet, 20 MG PO DAILY, (Reported) Gabapentin 100 Mg Capsule, #42 (Reported) Hydrocodone/Acetaminophen 1 Each Tablet, #60 (Reported) Lidocaine 700 Mg Adh..patch, 700 MG TP BID, #10 Prescribed by: LOUISE REES on 01/30/17 1450 Meloxicam 15 Mg Tablet, 1 EACH PO DAILY, (Reported) Oxycodone HCl/Acetaminophen 1 Each Tablet, 1 EACH PO Q4H PRN for PAIN, #14 Prescribed by: LOUISE REES on 01/07/17 1551 Oxycodone HCl/Acetaminophen 1 Each Tablet, 1 EACH PO Q4H, #14 Prescribed by: LOUISE REES on 01/30/17 1450 Pediatric Multivit Comb. No.49 1 Each Tab.chew, 2 EACH PO DAILY, (Reported) Potassium Chloride 10 Meq Capsule.sa, 10 MEQ PO DAILY, (Reported) Rabeprazole Sodium 20 Mg Tablet.dr, 20 MG PO DAILY, (Reported) [Combivent] , (Reported) [Singular] , (Reported) [Spirivia] , (Reported) Review of Systems Constitutional: no symptoms reported EENTM: No Symptoms Reported Respiratory: No Symptoms Reported Cardiovascular: No Symptoms Reported Gastrointestinal: See HPI Genitourinary: No Symptoms Reported Musculoskeletal: no symptoms reported Skin: see HPI Psychiatric/Neurological: See HPI Endocrine: No Symptoms Reported Past Vseedlk-Smyujt-Jmewsd Hx Patient Social History Alcohol Use: Occasionally Uses Recreational Drug Use: No (SMOKES 1PPD) Smoking Status: Current Everyday Smoker Type Used: Cigarettes Recent Foreign Travel: No Contact w/Someone Who Travel: No Recent Infectious Disease Expo: No Recent Hopitalizations: Yes (COPD) Immunizations Up To Date Date of Pneumonia Vaccine: Oct 22, 2010 Surgeries HX Surgeries: Yes (mastectomy left) Respiratory Hx Respiratory Disorders: Yes Respiratory Disorders: COPD Cardiovascular Hx Cardiac Disorders: Yes (stress test Nov 2011 in [place], denies cardiac issues, heart cath neg) Neurological Hx Neurological Disorders: No Reproductive System Hx Reproductive Disorders: Yes Sexually Transmitted Disease: No Genitourinary Hx Genitourinary Disorders: No Gastrointestinal Hx Gastrointestinal Disorders: Yes Gastrointestinal Disorders: Diverticulosis Musculoskeletal Hx Musculoskeletal Disorders: Yes Musculoskeletal Disorders: Osteoporosis, Arthritis Endocrine Hx Endocrine Disorders: No HEENT HX ENT Disorders: No Cancer Hx Cancer: Yes (Left mastectomy) Cancer: Breast Psychosocial Hx Psychiatric Problems: No Integumentary HX Skin/Integumentary Disorder: Yes (SHINGLES 01/05) Blood Transfusions Hx Blood Disorders: No Family Medical History Significant Family History: No Pertinent Family Hx Physical Exam Vital Signs VS - Last 72 Hours, by Label 02/05/17 02/05/17 09:43 12:33 Temp 98.3 Pulse 81 72 Resp 18 18 B/P (MAP) 123/87 Pulse Ox 96 94 O2 Delivery Room Air Capillary Refill : Less Than 3 Seconds General Appearance: WD/WN, no apparent distress HEENT: PERRL/EOMI, normal ENT inspection, pharynx normal Neck: normal inspection Respiratory: lungs clear, normal breath sounds, no respiratory distress, no accessory muscle use Cardiovascular: regular rate, rhythm, no edema, no murmur Gastrointestinal: normal bowel sounds, soft, tenderness (Left lower quadrant) Extremities: normal inspection, no pedal edema Back: normal inspection 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, no motor/sensory deficits, alert, normal mood/affect, oriented x 3 Skin: rash (Healing shingles rash on the left lower abdomen and flank) Progress/Results/Core Measures Results/Orders Lab Results Laboratory Tests Test 02/05/17 10:00 02/05/17 10:10 Range/Units Urine Color YELLOW Urine Clarity CLEAR Urine pH 6 5-9 Urine Specific [place] 1.015 L 1.016-1.022 Urine Protein NEGATIVE NEGATIVE Urine Glucose (UA) NEGATIVE NEGATIVE Urine Ketones NEGATIVE NEGATIVE Urine Nitrite NEGATIVE NEGATIVE Urine Bilirubin NEGATIVE NEGATIVE Urine Urobilinogen NORMAL NORMAL MG/DL Urine Leukocyte Esterase 1+ H NEGATIVE Urine RBC (Auto) NEGATIVE NEGATIVE Urine RBC RARE /HPF Urine WBC RARE /HPF Urine Squamous Epithelial Cells 10-25 H /HPF Urine Crystals NONE /LPF Urine Bacteria FEW H /HPF Urine Casts NONE /LPF Urine Mucus NEGATIVE /LPF Urine Culture Indicated NO White Blood Count 9.3 4.3-11.0 10^3/uL Red Blood Count 4.02 L 4.35-5.85 10^6/uL Hemoglobin 12.5 11.5-16.0 G/DL Hematocrit 38 35-52 % Mean Corpuscular Volume 93 80-99 FL Mean Corpuscular Hemoglobin 31 25-34 PG Mean Corpuscular Hemoglobin Concent 33 32-36 G/DL Red Cell Distribution Width 13.7 10.0-14.5 % Platelet Count 393 130-400 10^3/uL Mean Platelet Volume 9.7 7.4-10.4 FL Neutrophils (%) (Auto) 76 H 42-75 % Lymphocytes (%) (Auto) 15 12-44 % Monocytes (%) (Auto) 8 0-12 % Eosinophils (%) (Auto) 1 0-10 % Basophils (%) (Auto) 0 0-10 % Neutrophils # (Auto) 7.1 1.8-7.8 X 10^3 Lymphocytes # (Auto) 1.4 1.0-4.0 X 10^3 Monocytes # (Auto) 0.8 0.0-1.0 X 10^3 Eosinophils # (Auto) 0.1 0.0-0.3 10^3/uL Basophils # (Auto) 0.0 0.0-0.1 10^3/uL Sodium Level 138 135-145 MMOL/L Potassium Level 3.8 3.6-5.0 MMOL/L Chloride Level 100 98-107 MMOL/L Carbon Dioxide Level 27 21-32 MMOL/L Anion Gap 11 5-14 MMOL/L Blood Urea Nitrogen 24 H 7-18 MG/DL Creatinine 1.62 H 0.60-1.30 MG/DL Estimat Glomerular Filtration Rate 30 BUN/Creatinine Ratio 15 Glucose Level 91 70-105 MG/DL Calcium Level 9.5 8.5-10.1 MG/DL Total Bilirubin 0.6 0.1-1.0 MG/DL Aspartate Amino Transf (AST/SGOT) 14 5-34 U/L Alanine Aminotransferase (ALT/SGPT) 10 0-55 U/L Alkaline Phosphatase 92 40-136 U/L C-Reactive Protein High Sensitivity 4.47 H 0.00-0.50 MG/DL Total Protein 8.1 6.4-8.2 G/DL Albumin 4.2 3.2-4.5 G/DL My Orders Orders - BI SERNA MD Ua Culture If Indicated (02/05/17 09:56) Cbc With Automated Diff (02/05/17 09:59) Comprehensive Metabolic Panel (02/05/17 09:59) Hs C Reactive Protein (02/05/17 09:59) Ct Abdomen/Pelvis Wo (02/05/17 ) Ketorolac Injection (Toradol Injection) (02/05/17 12:15) Vital Signs/I&O Vital Sign - Last 12Hours 02/05/17 02/05/17 09:43 12:33 Temp 98.3 Pulse 81 72 Resp 18 18 B/P (MAP) 123/87 Pulse Ox 96 94 O2 Delivery Room Air Blood Pressure Mean: 99 Progress Note : Progress Note Labs were unremarkable in regard to signs of infection. Pain was presumed to be related to shingles. Options were discussed with the patient. She requested a CT scan due to history of diverticulosis. CT was performed and revealed no evidence of acute diverticulitis or other surgical or infectious intra-abdominal pathology. Pain was treated with Toradol. Acyclovir was added to her management for shingles. Diagnostic Imaging Diagonstic Imaging: CT Plain Films/CT/US/NM/MRI: abdomen, pelvis Comments CT abdomen and pelvis viewed by me and report reviewed. See report below: NAME: RAFFI [facility]USTIN [facility] REC#: [id number] PT STATUS: REG ER : 1935 PHYSICIAN: BI SERNA MD ADMIT DATE: 02/05/17/ER Draft Date of Exam:02/05/17 CT ABDOMEN/PELVIS WO PROCEDURE: CT abdomen and pelvis without contrast. TECHNIQUE: Multiple contiguous axial images were obtained through the abdomen and pelvis without the use of intravenous contrast. INDICATION: Left groin pain. History of diverticulitis. History of shingles. FINDINGS: The lung bases demonstrate emphysema changes and patchy consolidation or atelectasis in the left lower lobe. The descending thoracic aorta is ectatic, dilated to 3.2 cm in caliber with no significant change from 2015 exam measurements of 3.1 cm. The liver, spleen, pancreas and adrenal glands appear unremarkable. There are layering stones in the gallbladder. The abdominal aorta is normal in caliber. There are no significantly enlarged lymph nodes seen. Hilar vascular calcifications are seen in the kidneys with lower pole nonobstructive stones measuring up to 3 mm in size in the the right kidney. No definitive stone in the left kidney. Calcifications in the pelvis appear to be related to phleboliths with no ureteric or bladder stones. The left adnexa demonstrates a cystic lesion stable from 2015 measuring 1.5 cm compatible with benign etiology. There is the suggestion of sutures near the left adnexa and this could be a postoperative chronic seroma. There is diverticulosis mostly involving the sigmoid colon with no diverticulitis. No bowel obstruction. The osseous structures demonstrate left convexity scoliosis. IMPRESSION: 1. Diverticulosis. No diverticulitis. 2. Layering calcified gallstones with no evidence of cholecystitis. 3. The calcifications in the renal valeria are mostly vascular with the suggestion of a 3 mm lower pole right kidney stone. No hydronephrosis. No ureteric or bladder stones. Dictated on workstation # [id number] Dict: 02/05/17 1137 Trans: 02/05/17 1155 [facility] [id number] Interpreted by: KIMBERLY REYES MD Departure Impression Impression: Primary Impression: Left lower quadrant pain Additional Impression: Herpes zoster Qualified Codes: B02.9 - Zoster without complications Disposition: 01 HOME, SELF-CARE Condition: Improved Departure-Patient Inst. Decision time for Depature: 12:11 Referrals: MADDISON VALERA MD (PCP/Family) Primary Care Physician Patient Instructions: Acute Abdomen (Belly Pain), Adult (DC), Shingles Add. Discharge Instructions: Continue taking your medications as previously prescribed. Add acyclovir for suppression of shingles. Drink plenty of clear liquids. Follow-up with your primary care provider if not improving or symptoms worsen. All discharge instructions reviewed with patient and/or family. Voiced understanding. Scripts Acyclovir (Acyclovir) 800 Mg Tablet 800 MG PO QID, #28 TAB Prov: BI SERNA MD 02/05/17 BI SERNA MD Feb 05, 2017 12:13
[2017-02-05] MEDS ORDERED: KETOROLAC 30 MG/ML VIAL IVP ONE (12:15)
[2017-02-05 12:33] VITALS: BP 138/65
== END 2017-02-05 12:36 | disposition home or self-care (01) ==
LOC: EDUNIT# 09:38 → ER 09:41
DX: R10.32 Left lower quadrant pain (principal); B02.9 Zoster without complications; J44.9 Chronic obstructive pulmonary disease, unspecified; K57.30 Diverticulosis of large intestine without perforation or abscess without bleeding; K80.20 Calculus of gallbladder without cholecystitis without obstruction; F17.210 Nicotine dependence, cigarettes, uncomplicated; Z79.82 Long term (current) use of aspirin; Z79.899 Other long term (current) drug therapy
CPT/HCPCS: 36415; 74176; 80053; 81000; 85025; 86141; 96374

== ENCOUNTER 2017-03-18 02:15 | Observation (INO) | payer MEDICARE, MEDICAID ==
[2017-03-18] VITALS (8 sets, daily range): BP systolic 61–106; BP diastolic 43–66
[~2017-03-18] VITALS: Ht 154.9 cm; Wt 40.5 kg
[~2017-03-18 02:15] MED LIST changes: +GABA-486; +HYDR-3820
[2017-03-18 02:28] LABS: BASOPHILS % (AUTO) 0 % (0-10); EOSINOPHILS % (AUTO) 1 % (0-10); LYMPHOCYTES # (AUTO) 1.7 X 10^3 (1.0-4.0); LYMPHOCYTES % (AUTO) 24 % (12-44); MEAN CORPUSCULAR HEMOGLOBIN 31 PG (25-34); MEAN CORPUSCULAR HGB CONC 33 G/DL (32-36); MEAN CORPUSCULAR VOLUME 94 FL (80-99); MEAN PLATELET VOLUME 9.5 FL (7.4-10.4); MONOCYTES # (AUTO) 0.6 X 10^3 (0.0-1.0); MONOCYTES % (AUTO) 8 % (0-12); NEUTROPHILS # (AUTO) 4.6 X 10^3 (1.8-7.8); NEUTROPHILS % (AUTO) 67 % (42-75); PLATELET COUNT 385 10^3/uL (130-400); RED BLOOD COUNT 4.15 10^6/uL (4.35-5.85); RED CELL DISTRIBUTION WIDTH 14.9 % (10.0-14.5)
[2017-03-18 02:51] LABS: ALBUMIN 3.7 G/DL (3.2-4.5); BILIRUBIN,TOTAL 0.4 MG/DL (0.1-1.0); CALCIUM 9.6 MG/DL (8.5-10.1); CREATININE SERUM 1.46 MG/DL (0.60-1.30); POTASSIUM 2.8 MMOL/L (3.6-5.0); TOTAL PROTEIN 7.7 G/DL (6.4-8.2)
[2017-03-18] MEDS ORDERED: NS IV 500 ML 500 ML ONE (03:29)
[2017-03-18] MEDS ORDERED: KCL 10 MEQ TAB (MICRO K) PO ONE (03:30)
[2017-03-18] MEDS ORDERED: POTASSIUM CL 10MEQ/50ML IVPB 50 ML IV ONE (03:30)
[2017-03-18] MEDS ORDERED: NS IV 500 ML 500 ML IV ONE (03:33)
--- NOTE | 2017-03-18 03:40 | ED General ---
General Chief Complaint: Respiratory Problems Stated Complaint: WEAKNESS Source of Information: Patient, EMS, Old Records Exam Limitations: No Limitations (BI SERNA MD) History of Present Illness Time Seen by Provider: 02:17 Initial Comments This 82-year-old woman presents to the emergency room with complaints of shortness of air and weakness. She arrives via EMS. EMS reports her oxygen saturations have been in the 90s on room air, heart rate has been in the 60s, and blood pressure was 120/60. Patient reports feeling that her heart rate is rapid and that she has low blood pressure. Although patient stated she is weak , she was able to walk to the [facility] on her own power without any difficulty for EMS. She complains of loss of appetite and early satiety. She vomited once today. She is not nauseated at present and has no pain. Patient reports her family all left for the holiday weekend and she is home alone. She denies having any anxiety about being home alone. Patient also reports that she previously took 4 tablets of potassium a day but decreased her dose to 2 tablets. I am unclear as to when she made this change. (BI SERNA MD) Allergies and Home Medications Allergies Coded Allergies: hydrochlorothiazide (Verified Allergy, Intermediate, RASH, 05/16/12) Sulfa (Sulfonamide Antibiotics) (Unverified Allergy, 09/01/11) Levofloxacin (Verified Adverse Reaction, Intermediate, SOA, 07/14/13) milk (Verified Adverse Reaction, Mild, upset stomach, 07/14/13) states cooked mild ok Home Medications Acyclovir 800 Mg Tablet, 800 MG PO Q4H, #28 Prescribed by: LOUISE REES on 01/07/17 1551 Acyclovir 800 Mg Tablet, 800 MG PO QID, #28 Prescribed by: BI RUSSELL on 02/05/17 1213 Aspirin 81 Mg Tabec, 81 MG PO DAILY, (Reported) Atenolol 25 Mg Tablet, 25 MG PO DAILY, (Reported) Cephalexin 500 Mg Capsule, 500 MG PO TID, #20 Prescribed by: BI RUSSELL on 03/18/17 0613 Furosemide 20 Mg Tablet, 20 MG PO DAILY, (Reported) Gabapentin 100 Mg Capsule, #42 (Reported) Hydrocodone/Acetaminophen 1 Each Tablet, #60 (Reported) Lidocaine 700 Mg Adh..patch, 700 MG TP BID, #10 Prescribed by: LOUISE REES on 01/30/17 1450 Meloxicam 15 Mg Tablet, 1 EACH PO DAILY, (Reported) Oxycodone HCl/Acetaminophen 1 Each Tablet, 1 EACH PO Q4H PRN for PAIN, #14 Prescribed by: LOUISE REES on 01/07/17 1551 Oxycodone HCl/Acetaminophen 1 Each Tablet, 1 EACH PO Q4H, #14 Prescribed by: LOUISE REES on 01/30/17 1450 Pediatric Multivit Comb. No.49 1 Each Tab.chew, 2 EACH PO DAILY, (Reported) Potassium Chloride 10 Meq Capsule.sa, 10 MEQ PO DAILY, (Reported) Rabeprazole Sodium 20 Mg Tablet.dr, 20 MG PO DAILY, (Reported) [Combivent] , (Reported) [Singular] , (Reported) [Spirivia] , (Reported) Constitutional: see HPI, weakness EENTM: no symptoms reported Respiratory: see HPI Cardiovascular: see HPI Gastrointestinal: see HPI Genitourinary: no symptoms reported : No Musculoskeletal: no symptoms reported Skin: no symptoms reported Psychiatric/Neurological: No Symptoms Reported Hematologic/Lymphatic: No Symptoms Reported Immunological/Allergic: no symptoms reported (BI SERNA MD) Past Jboosui-Fjrkus-Seizht Hx Patient Social History Type Used: Cigarettes Recent Hopitalizations: Yes (COPD) (BI SERNA MD) Immunizations Up To Date Date of Pneumonia Vaccine: Oct 22, 2010 (BI SERNA MD) Surgeries HX Surgeries: Yes (mastectomy left) (BI SERNA MD) Respiratory Hx Respiratory Disorders: Yes Respiratory Disorders: COPD (BI SERNA MD) Cardiovascular Hx Cardiac Disorders: Yes (stress test Nov 2011 in [place], denies cardiac issues, heart cath neg, CHF with ejection fraction of 40 percent in 2010) (BI SERNA MD) Neurological Hx Neurological Disorders: No (BI SERNA MD) Reproductive System Hx Reproductive Disorders: Yes Sexually Transmitted Disease: No (BI SERNA MD) Genitourinary Hx Genitourinary Disorders: Yes Hx Genitourinary Disorders: No Genitourinary Disorders: Renal Failure (CKD) (BI SERNA MD) Gastrointestinal Hx Gastrointestinal Disorders: Yes Gastrointestinal Disorders: Diverticulosis (BI SERNA MD) Musculoskeletal Hx Musculoskeletal Disorders: Yes Musculoskeletal Disorders: Osteoporosis, Arthritis (BI SERNA MD) Endocrine Hx Endocrine Disorders: No (BI SERNA MD) HEENT HX ENT Disorders: No (BI SERNA MD) Cancer Hx Cancer: Yes (Left mastectomy) Cancer: Breast (BI SERNA MD) Psychosocial Hx Psychiatric Problems: No (BI SERNA MD) Integumentary HX Skin/Integumentary Disorder: Yes (SHINGLES 01/05) (BI SERNA MD) Blood Transfusions Hx Blood Disorders: No (BI SERNA MD) Family Medical History Significant Family History: No Pertinent Family Hx (BI SERNA MD) Physical Exam Vital Signs Vital Sign - Last 12Hours 03/18/17 02:15 Temp 97.0 Pulse 122 Resp 22 B/P (MAP) 101/87 Pulse Ox 95 O2 Delivery Room Air (DIAZ LUCIA) Vital Signs Capillary Refill : (BI SERNA MD) General Appearance: No Apparent Distress, WD/WN, Thin HEENT: PERRL/EOMI, Normal ENT Inspection, Pharynx Normal Neck: Normal Inspection Respiratory: Lungs Clear, Normal Breath Sounds, No Accessory Muscle Use, No Respiratory Distress Cardiovascular: Regular Rate, Rhythm, No Edema, No Murmur Gastrointestinal: Normal Bowel Sounds, Non Tender, Soft Extremity: Normal Inspection, Non Tender, No Calf Tenderness, No Pedal Edema, Other (negative Antonia) Neurologic/Psychiatric: Alert, Oriented x3, No Motor/Sensory Deficits, Normal 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/Affect, 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 Norm as Tested, Other (left facial twitching) Skin: Normal Color, Warm/Dry (BI SERNA MD) General Appearance: No Apparent Distress, WD/WN Respiratory: Lungs Clear, Normal Breath Sounds, No Accessory Muscle Use, No Respiratory Distress Cardiovascular: Regular Rate, Rhythm, No Edema, No Gallop, No JVD, No Murmur, Normal Peripheral Pulses Gastrointestinal: Normal Bowel Sounds, Non Tender, Soft (SU,DIAZ J) Progress/Results/Core Measures Results/Orders Lab Results Laboratory Tests Test 03/18/17 02:18 03/18/17 04:43 Range/Units White Blood Count 7.0 4.3-11.0 10^3/uL Red Blood Count 4.15 L 4.35-5.85 10^6/uL Hemoglobin 13.0 11.5-16.0 G/DL Hematocrit 39 35-52 % Mean Corpuscular Volume 94 80-99 FL Mean Corpuscular Hemoglobin 31 25-34 PG Mean Corpuscular Hemoglobin Concent 33 32-36 G/DL Red Cell Distribution Width 14.9 H 10.0-14.5 % Platelet Count 385 130-400 10^3/uL Mean Platelet Volume 9.5 7.4-10.4 FL Neutrophils (%) (Auto) 67 42-75 % Lymphocytes (%) (Auto) 24 12-44 % Monocytes (%) (Auto) 8 0-12 % Eosinophils (%) (Auto) 1 0-10 % Basophils (%) (Auto) 0 0-10 % Neutrophils # (Auto) 4.6 1.8-7.8 X 10^3 Lymphocytes # (Auto) 1.7 1.0-4.0 X 10^3 Monocytes # (Auto) 0.6 0.0-1.0 X 10^3 Eosinophils # (Auto) 0.0 0.0-0.3 10^3/uL Basophils # (Auto) 0.0 0.0-0.1 10^3/uL D-Dimer 0.47 0.00-0.49 UG/ML Sodium Level 137 135-145 MMOL/L Potassium Level 2.8 L 3.6-5.0 MMOL/L Chloride Level 97 L 98-107 MMOL/L Carbon Dioxide Level 23 21-32 MMOL/L Anion Gap 17 H 5-14 MMOL/L Blood Urea Nitrogen 19 H 7-18 MG/DL Creatinine 1.46 H 0.60-1.30 MG/DL Estimat Glomerular Filtration Rate 34 BUN/Creatinine Ratio 13 Glucose Level 119 H 70-105 MG/DL Calcium Level 9.6 8.5-10.1 MG/DL Magnesium Level 2.0 1.8-2.4 MG/DL Total Bilirubin 0.4 0.1-1.0 MG/DL Aspartate Amino Transf (AST/SGOT) 17 5-34 U/L Alanine Aminotransferase (ALT/SGPT) 10 0-55 U/L Alkaline Phosphatase 100 40-136 U/L Total Protein 7.7 6.4-8.2 G/DL Albumin 3.7 3.2-4.5 G/DL TSH [place] Testing 0.50 0.35-4.94 UIU/ML Urine Color YELLOW Urine Clarity SLIGHTLY CLOUDY Urine pH 6 5-9 Urine Specific [place] 1.010 L 1.016-1.022 Urine Protein NEGATIVE NEGATIVE Urine Glucose (UA) NEGATIVE NEGATIVE Urine Ketones NEGATIVE NEGATIVE Urine Nitrite NEGATIVE NEGATIVE Urine Bilirubin NEGATIVE NEGATIVE Urine Urobilinogen 1 NORMAL MG/DL Urine Leukocyte Esterase 2+ H NEGATIVE Urine RBC (Auto) NEGATIVE NEGATIVE Urine RBC NONE /HPF Urine WBC 5-10 H /HPF Urine Squamous Epithelial Cells 5-10 /HPF Urine Crystals NONE /LPF Urine Bacteria MODERATE H /HPF Urine Casts PRESENT /LPF Urine Hyaline Casts RARE /LPF Urine Mucus NEGATIVE /LPF Urine Culture Indicated YES (DIAZ LUCIA) Medications Given in ED Current Medications Medications Dose Ordered Sig/Oscar Route Start Time Stop Time Status Last Admin Dose Admin Albuterol/ Ipratropium 3 ml ONCE ONCE INH 03/18/17 06:45 03/18/17 06:46 DC 03/18/17 06:48 3 ML Cephalexin HCl 500 mg ONCE ONCE PO 03/18/17 05:30 03/18/17 05:31 DC 03/18/17 05:36 500 MG Lactated Ringer's 1,000 ml @ 0 mls/hr Q0M ONCE IV 03/18/17 05:32 03/18/17 05:34 DC 03/18/17 05:36 0 MLS/HR Potassium Chloride 20 meq ONCE ONCE PO 03/18/17 03:30 03/18/17 03:31 DC 03/18/17 03:36 20 MEQ Potassium Chloride 50 ml @ 50 mls/hr ONCE ONCE IV 03/18/17 03:30 03/18/17 04:29 DC 03/18/17 03:38 50 MLS/HR Sodium Chloride 500 ml @ 0 mls/hr Q0M ONCE IV 03/18/17 03:33 03/18/17 03:34 DC 03/18/17 03:42 0 MLS/HR (DIAZ LUCIA) Vital Signs/I&O Vital Sign - Last 12Hours 03/18/17 03/18/17 02:15 06:49 Temp 97.0 Pulse 122 Resp 22 B/P (MAP) 101/87 Pulse Ox 95 94 O2 Delivery Room Air (DIAZ LUCIA) Progress Note #1: Time: 03:35 Progress Note Labs have been reviewed. Patient has a potassium of 2.8. Potassium 10 mEq have been ordered by IV route as well as 20 mEq ordered by oral route. Patient has also had 2 consecutive systolic blood pressures below 90. 500 mL of normal saline is being administered. EKG is being obtained as well. Patient informed me that she recently decreased her potassium supplementation from 4 tablets a day to 2 tablets a day because she hadn't been drinking enough water and her Lasix dose was halved. Progress Note #2: Time: 05:39 Progress Note Patient has been experiencing intermittent hypotension when she falls asleep. 500 mL of normal saline has been infused. Last blood pressure was 83/66. A liter of LR has been ordered. It is suspected that patient is hypovolemic from diuretic use. Patient has a urinary tract infection as identified on UA. Keflex has been ordered for initial treatment. Progress Note #3: Time: 06:31 Progress Note Patient had been placed on nasal cannula oxygen by EMS. When it was removed, patient's oxygen dropped to 83 percent on room air while asleep. When awake her oxygen rebound's to 95 percent on room air. Patient initially presented with weakness and shortness of air. Blood pressure has improved to 107/72 with the liter of lactated Ringer's. Patient's heart rate occasionally increases as high as 110. Given the instability of her vital signs and initial complaint of shortness of air, d-dimer is felt appropriate. Plan was discussed with Dr. Lucia. Care was transitioned to him at this time. D-dimer was ordered. Intent is for admission for observation especially since patient's family has left for the holiday weekend. A DuoNeb treatment will also be given. Progress Note #4: Time: 06:59 Progress Note D-dimer was negative. Patient is receiving DuoNeb treatment now. Case was reviewed with Dr. Valera who is agreeable to admission for observation. (BI SERNA MD) Progress Note : Time: 06:00 Progress Note Assume care of the patient. Patient is having labile blood pressure and sats on room air. The patient is not on oxygen at home. She does have COPD but no physical evidence of COPD exacerbation at this time. When she falls asleep her set started dropping into the low 80s on room air. Assume she has woke up her sats return to the mid to high 90s. D-dimer was negative. With her CRF and electrolyte disturbances and labile vital signs she would benefit from R placement and lab monitoring for an observation stay. Dr. Russell contacted the PCP for STAY. (DIAZ LUCIA) ECG Initial ECG Impression Date: March 18, 2017 Initial ECG Impression Time: 03:50 Initial ECG Rate: 91 Comment Sinus rhythm with chronic left bundle branch block. No acute ST elevation or depression. (BI SERNA MD) Diagnostic Imaging Diagonstic Imaging: Xray Plain Films/CT/US/NM/MRI: chest Comments Chest x-ray viewed by me. Report not yet available. COPD changes with no adverse changes from prior. (BI SERNA MD) Departure Communication Time/Spoke to Admitting Phy: 06:[address] Edson Valera (BI SERNA MD) Impression Impression: Primary Impression: Hypokalemia Additional Impressions: Generalized weakness Urinary tract infection Qualified Codes: N39.0 - Urinary tract infection, site not specified Hypovolemia labile vital signs Nocturnal hypoxemia Disposition: ADMITTED INPATIENT (obs) Condition: Stable Time/Decision to Admit Time: 06:45 (BI SERNA MD) Decision to Admit Reason: Admit from ER (General) (DIAZ LUCIA) Departure-Patient Inst. Referrals: EDSON VALERA MD (PCP/Family) Primary Care Physician Patient Instructions: Hypokalemia, Urinary Tract Infections in Adults Add. Discharge Instructions: All discharge instructions reviewed with patient and/or family. Voiced understanding. Scripts Cephalexin (Keflex) 500 Mg Capsule 500 MG PO TID, #20 CAP Prov: BI SERNA MD 03/18/17 Copy Copies To 1: EDSON VALERA MD, JOSHUA T MD March 18, 2017 03:40 DIAZ LUCIA March 18, 2017 07:28
[2017-03-18 04:53] LABS: BILIRUBIN,URINE NEGATIVE (NEGATIVE); KETONES,URINE NEGATIVE (NEGATIVE); LEUKOCYTE ESTERASE ,URINE 2+ (NEGATIVE); NITRITE,URINE NEGATIVE (NEGATIVE); PH,URINE 6 (5-9); PROTEIN,URINE NEGATIVE (NEGATIVE); UROBILINOGEN,URINE 1 MG/DL (NORMAL)
[2017-03-18 05:02] LABS: HYALINE CASTS, URINE RARE /LPF
[2017-03-18] MEDS ORDERED: LACTATED RINGERS 1,000 ML IV ONE ×2 (05:29→05:32)
[2017-03-18] MEDS ORDERED: CEPHALEXIN 250 MG (KEFLEX) CAP PO ONE (05:30)
[2017-03-18] MEDS ORDERED: CEPH-507 PO (06:13)
[2017-03-18] MEDS ORDERED: RT-ALBUTEROL/IPRATROPIUM 3 ML (DUONEB) VIAL INH ONE (06:45)
--- NOTE | 2017-03-18 06:45 | Diagnostic Imaging Report ---
INDICATION: Weakness and shortness of air. COMPARISON: 09/06/13. FINDINGS: Hyperaerated lung volume may relate to underlying COPD. No focal airspace disease. No pleural effusion or pneumothorax. Heart is normal in size. Atherosclerosis and mild tortuosity of the aorta is unchanged. IMPRESSION: 1. No acute cardiopulmonary process by portable radiography. Dictated by: Dictated on workstation # [id number]
[2017-03-18] MEDS ORDERED: CATHETER FLUSH 10 ML SYR IV PRN (09:00)
[2017-03-18] MEDS: NS IV 1000 ML 1,000 ML IV SCH ×2 (09:08→17:44)
[2017-03-18] MEDS ORDERED: ASPI-808 PO (10:34)
[2017-03-18] MEDS ORDERED: CARV6.252 PO (10:34)
[2017-03-18] MEDS ORDERED: POTA10TA10 PO (10:34)
[2017-03-18] MEDS ORDERED: BUDE10.2 IH (10:34)
[2017-03-18] MEDS ORDERED: FURO-124 PO (10:34)
[2017-03-18] MEDS ORDERED: TIOT18CA2 IH (10:34)
[2017-03-18] MEDS: POTASSIUM CL 10MEQ/50ML IVPB 50 ML IV SCH ×4 (11:17→15:53)
--- NOTE | 2017-03-18 11:39 | History & Physical ---
History of Present Illness History of Present Illness Reason for visit/HPI 82-year-old female with past medical history of tobaccoism chronic kidney disease, arthritis and a history of left breast cancer. she also had a remote history of left sided shingles approximately 3 months ago. She did complete a course of acyclovir but did not take it as directed. Patient's pain from her shingles required opioids. Patient reports she stopped taking the opioids 3 days ago as her shingles pain greatly improved. Patient reports a 20 pound weight loss though over the past 5 months. She explains this by not eating very much; she will eat 1-2 bites and feel full so she will stop eating and trying again later. Denies any dysphagia though with swallowing. Patient does report dizziness on occasion with standing but denies any falls. Patient reports yesterday she woke up with a little bit of nausea so she hasn't drank as much fluid as she normally does. Patient continues to smoke cigarettes noted to the nurse that today gil her 65th anniversary of smoking. Pt admitted for observation due to when she fell asleep in the ER her oxygen saturation went down to the 80s- recovered with oxygen NC- CXR was negative. Blood pressure also was on the low side. Pt received IVF and some potassium in the ER. On 4th floor it was noted pt's blood pressures were low (60s/40s) on automatic BP cuff- not felt to be accurate (partly due to cuff size- pt's arms are spindly ) as the pt has a good radial pulse- meaning her systolic is at least 90. Pt is asymptomatic besides she thinks she will be a little lightheaded when she stands. Will continue to monitor vitals q4hr. Date of Admission March 18, 2017 at 07:17 I consulted on this patient on 03/18/17 11:34 Attending Physician Edson Flores MD Admitting Physician Edson Flores MD Consult Allergies and Home Medications Allergies Coded Allergies: hydrochlorothiazide (Verified Allergy, Intermediate, RASH, 03/18/17) Sulfa (Sulfonamide Antibiotics) (Verified Allergy, Unknown, 03/18/17) levofloxacin (Verified Adverse Reaction, Intermediate, SOA, 03/18/17) Home Medications Aspirin 325 Mg Tablet, 325 MG PO HS, (Reported) Budesonide/Formoterol Fumarate 10.2 Gm Hfa.aer.ad, 1 PUFF IH DAILY PRN for SHORTNESS OF BREATH, (Reported) Carvedilol 6.25 Mg Tablet, 6.25 MG PO BID, (Reported) Furosemide 40 Mg Tablet, 40 MG PO BID, (Reported) Meloxicam 15 Mg Tablet, 1 EACH PO DAILY PRN for PAIN-MILD, (Reported) Potassium Chloride 10 Meq Tablet.er, 2 TAB PO BID, (Reported) Tiotropium [place] 1 Inh Aerp, 1 PUFF IH DAILY, (Reported) Past Zgjiaqv-Tyeyyi-Yphpdy Hx Patient Social History Marrital Status: single Alcohol Use: Denies Use Recreational Drug Use: No Smoking Status: Current Everyday Smoker Type Used: Cigarettes Recent Foreign Travel: No Contact w/other who traveled: No Recent Hopitalizations: No Recent Infectious Disease Expo: No Immunizations Up To Date Tetanus Booster (TDap): Less than 5yrs Date of Pneumonia Vaccine: Oct 22, 2012 Surgeries HX Surgeries: Yes (mastectomy left) Respiratory Hx Respiratory Disorders: Yes Cardiovascular Hx Cardiovascular Disorders: Yes (stress test Nov 2011 in [place], denies cardiac issues, heart cath neg, CHF with ejection fraction of 40 percent in 2010 ) Neurological Hx Neurological Disorders: No Reproductive System Hx Reproductive Disorders: Yes Sexually Transmitted Disease: No Genitourinary Hx Genitourinary Disorders: Yes Genitourinary Disorders: Renal Failure (CKD) Gastrointestinal Hx Gastrointestinal Disorders: Yes Gastrointestinal Disorders: Diverticulosis Musculoskeletal Hx Musculoskeletal Disorders: Yes Musculoskeletal Disorders: Osteoporosis, Arthritis Endocrine Hx Endocrine Disorders: No HEENT HX ENT Disorders: No Cancer Hx Cancer: Yes (Left mastectomy) Cancer: Breast Psychosocial Hx Psychiatric Problems: No Integumentary HX Skin/Integumentary Disorder: Yes (SHINGLES 01/05) Blood Transfusions Hx Blood Disorders: No Family Medical History Significant Family History: No Pertinent Family Hx Family Hx: Cardiovascular disease 19 FATHER G8 BROTHER Diabetes mellitus G8 SISTER Review of Systems Review of Systems General: No Chills, No Night Sweats, Fatigue, Appetite (poor, early satiation) HEENT: No Head Aches, No Visual Changes Pulmonary: No Dyspnea, No Cough Cardiovascular: No: Chest Pain, Palpitations Gastrointestinal: Nausea, No: Abdominal Pain, Vomiting Genitourinary: No Dysuria, No Frequency Musculoskeletal: No: neck pain, shoulder pain Neurological: Weakness, No: Numbness Physical Exam Vital Signs Vital Sign - Last 12Hours 03/18/17 02:15 Temp 97.0 Pulse 122 Resp 22 B/P (MAP) 101/87 Pulse Ox 95 O2 Delivery Room Air Capillary Refill : Less Than 3 Seconds General Appearance: No Apparent Distress, Cachetic HEENT: PERRL/EOMI Neck: Non Tender, Supple Respiratory: Chest Non Tender, Lungs Clear, Normal Breath Sounds, No Accessory Muscle Use, No Respiratory Distress Cardiovascular: Tachycardia Gastrointestinal: Normal Bowel Sounds, Non Tender, Soft Rectal: Deferred Back: Normal Inspection, No CVA Tenderness Extremity: Non Tender, No Calf Tenderness Neurologic/Psychiatric: Alert, Oriented x3, No Motor/Sensory Deficits Skin: Normal Color, Warm/Dry, Other (left side of abdomen- hyperpigmentation from shingles) Assessment/Plan Assessment/Plan Assessment/Plan 82 yo F nocturnal hypoxia- dropped to the 80s in ER- placed on 2L NC- currently on RA mid-90s while awake- pt was -napping this am and was in low 90s on RA. hypotension- blood pressure cuffs were too large- switched to more appropriate cuff and automatic BP was 86/67- manual BP was 94/74. IVF. Asymptomatic. If blood pressure goes any lower or we seen worsening end organ damage will need to intervene. hypokalemia- replacing tobacco dependence- cigarettes- encourage cessation chronic kidney disease- IVF, at baseline Cr- arthritis- apap h/o left breast cancer weakness- PT/OT Dispo: IVF, replacing lytes, monitor vitals- plan to d/c to home 03/19/17 if blood pressure recovers and pt continues to no longer be hypoxic. checking renal function panel at 2pm today Problems: EDSON FLORES MD March 18, 2017 11:39
[2017-03-18] MEDS: CATHETER FLUSH 10 ML SYR IV SCH ×2 (13:16→22:02)
[2017-03-18 14:28] LABS: CALCIUM 8.7 MG/DL (8.5-10.1); CREATININE SERUM 1.11 MG/DL (0.60-1.30); PHOSPHORUS 2.9 MG/DL (2.3-4.7); POTASSIUM 3.9 MMOL/L (3.6-5.0)
[2017-03-18] MEDS: KCL 10 MEQ TAB (MICRO K) PO SCH (17:44)
[2017-03-19] VITALS: BP 123/81
[2017-03-19] MEDS: NS IV 1000 ML 1,000 ML IV SCH (03:56)
[2017-03-19 04:00] VITALS: BP 124/80
[2017-03-19 04:55] LABS: BASOPHILS % (AUTO) 0 % (0-10); EOSINOPHILS # (AUTO) 0.1 10^3/uL (0.0-0.3); EOSINOPHILS % (AUTO) 2 % (0-10); LYMPHOCYTES # (AUTO) 1.1 X 10^3 (1.0-4.0); LYMPHOCYTES % (AUTO) 21 % (12-44); MEAN CORPUSCULAR HEMOGLOBIN 31 PG (25-34); MEAN CORPUSCULAR HGB CONC 32 G/DL (32-36); MEAN CORPUSCULAR VOLUME 96 FL (80-99); MEAN PLATELET VOLUME 9.5 FL (7.4-10.4); MONOCYTES # (AUTO) 0.5 X 10^3 (0.0-1.0); MONOCYTES % (AUTO) 9 % (0-12); NEUTROPHILS # (AUTO) 3.6 X 10^3 (1.8-7.8); NEUTROPHILS % (AUTO) 68 % (42-75); PLATELET COUNT 339 10^3/uL (130-400); RED CELL DISTRIBUTION WIDTH 15.1 % (10.0-14.5); WHITE BLOOD COUNT 5.2 10^3/uL (4.3-11.0)
[2017-03-19 05:04] LABS: ALBUMIN 2.8 G/DL (3.2-4.5); ANION GAP 8 MMOL/L (5-14); BLOOD UREA NITROGEN 8 MG/DL (7-18); BUN/CREATININE RATIO 9; CALCIUM 8.5 MG/DL (8.5-10.1); CARBON DIOXIDE 20 MMOL/L (21-32); CHLORIDE 114 MMOL/L (98-107); CREATININE SERUM 0.87 MG/DL (0.60-1.30); GFR ESTIMATED > 60; GLUCOSE 73 MG/DL (70-105); MAGNESIUM 1.7 MG/DL (1.8-2.4); PHOSPHORUS 2.5 MG/DL (2.3-4.7); SODIUM 142 MMOL/L (135-145)
[2017-03-19] MEDS: KCL 10 MEQ TAB (MICRO K) PO SCH (06:07)
[2017-03-19] MEDS: CATHETER FLUSH 10 ML SYR IV SCH (06:08)
[2017-03-19] MEDS ORDERED: MAGNESIUM OXIDE (MAG-OX)400 MG TAB PO SCH (09:00)
--- NOTE | 2017-03-19 10:16 | Physical Therapy Evaluation ---
PT Evaluation-General Medical Diagnosis Admission Date March 18, 2017 at 07:17 Medical Diagnosis: hypokalemia Onset Date: March 18, 2017 Therapy Diagnosis Therapy Diagnosis: debility Height/Weight Height (Feet): 5 Height (Inches): 1.00 Weight (Pounds): 89 Weight (Ounces): 3.2 Precautions Precautions/Isolations: Standard Precautions Referral Physician: Mark Reason for Referral: Evaluation/Treatment Medical History Pertinent Medical History: Arthritis, COPD, Heart Failure, Renal Insufficiency , Smoking Additional Medical History current everyday smoker Current History increase SOA, decreased BP, elevated HR Reviewed History: Yes Social History Home: Single Level Current Living Status: Alone Prior/Core FIM Prior Level of Function Functional [place] Measure 0=Not Assessed/NA 4=Minimal Assistance 1=Total Assistance 5=Supervision or Setup 2=Maximal Assistance 6=Modified [place] 3=Moderate Assistance 7=Complete [place] Bed Mobility: 7 Transfers (B,C,W/C) (FIM): 7 Gait: 7 PT Evaluation-Current Subjective Patient and state she is going home today. Pain Numeric Pain Scale: 0-No Pain Location: No Pain Reported Objective Patient Orientation: Normal For Age Problem Solving: Good Attachments: IV ROM/Strength ROM Lower Extremities bilateral LE WFL Strenght Lower Extremities bilateral LE Integumentary/Posture Integumentary refer to nursing notes Bowel Incontinence: No Bladder Incontinence: No Posture WNL Neuromuscular (Tone, Coordination, Reflexes) grossly intact Sensory Vision: Functional Hearing: Hearing Aid/Aides Sensation Right Lower Extremit: Intact Sensation Left Lower Extremity: Intact Transfers Functional [place] Measure 0=Not Assessed/NA 4=Minimal Assistance 1=Total Assistance 5=Supervision or Setup 2=Maximal Assistance 6=Modified [place] 3=Moderate Assistance 7=Complete [place] Transfers (B, C, W/C) (FIM): 7 Scootin Rollin Supine to/from Sit: 7 Sit to/from Stand: 7 Gait Mode of Locomotion: Walk Anticipated Mode of Locomotion: Walk Gait (FIM): 7 Distance (FIM): 3=150 ft Distance: 300' Gait Level of Assist: 7 Gait Assistive Device: None Comments/Gait Description safe and functional Balance Sitting Static: Normal Sitting Dynamic: Normal Standing Static: Normal Standing Dynamic: Normal Assessment/Needs 82 y.o. female, is currently at independent LOF and will dismiss to home. No skilled PT indicated. Rehab Potential: Good PT Plan Treatment/Plan Treatment Plan: Discontinue PT, goals met Treatment Duration: March 19, 2017 Visits Per Week: 1 Pt/Family Agrees w/Plan: Yes Discharge Recommendations Therapy D/C Recommendations: Home Independently Time/GCodes Time In: 935 Time Out: 945 Total Billed Treatment Time: 10 Total Billed Treatment 1 visit EVLowC 10 min DC G Codes Necessary: Yes PT/OT Therapy GCodes Therapy Functional Limitation: Physical Therapy Test(s)/Tool used to determine: Level of Assistance Scale Functional Limitation-Current Charge Code: MOBCUR Modifier: CH Functional Limitation-Goal Charge Code: MOBGOAL Modifier: CH Functional Limitation-D/C Charge Codes: MOBDC Modifier: CH BRISA QUINTERO PT March 19, 2017 10:16
--- NOTE | 2017-03-19 10:26 | Discharge Summary ---
Diagnosis/Chief Complaint Date of Admission March 18, 2017 at 07:17 Date of Discharge Mar 19 2017 Admission Diagnosis Admission Diagnosis nocturnal hypoxia- hypotension- hypokalemia- tobacco dependence- chronic kidney disease- arthritis- h/o left breast cancer weakness- Discharge Diagnosis nocturnal hypoxia- hypotension- hypokalemia- hypomagnesemia tobacco dependence- chronic kidney disease- arthritis- h/o left breast cancer weakness- Reason Hospital Visit 82-year-old female with past medical history of tobaccoism chronic kidney disease, arthritis and a history of left breast cancer. she also had a remote history of left sided shingles approximately 3 months ago. She did complete a course of acyclovir but did not take it as directed. Patient's pain from her shingles required opioids. Patient reports she stopped taking the opioids 3 days ago as her shingles pain greatly improved. Patient reports a 20 pound weight loss though over the past 5 months. She explains this by not eating very much; she will eat 1-2 bites and feel full so she will stop eating and trying again later. Denies any dysphagia though with swallowing. Patient does report dizziness on occasion with standing but denies any falls. Patient reports yesterday she woke up with a little bit of nausea so she hasn't drank as much fluid as she normally does. Patient continues to smoke cigarettes noted to the nurse that today gil her 65th anniversary of smoking. Pt admitted for observation due to when she fell asleep in the ER her oxygen saturation went down to the 80s- recovered with oxygen NC- CXR was negative. Blood pressure also was on the low side. Pt received IVF and some potassium in the ER. On 4th floor it was noted pt's blood pressures were low (60s/40s) on automatic BP cuff- not felt to be accurate (partly due to cuff size- pt's arms are spindly ) as the pt has a good radial pulse- meaning her systolic is at least 90. Pt is asymptomatic besides she thinks she will be a little lightheaded when she stands. Will continue to monitor vitals q4hr. Discharge Summary Hospital Course Hospital Course No overnight events- Patient is much improved. With IVF pt has resolution and improvement in her hypoxia as well as her acute kidney injury resolved. Patient's appetite also improved. Patient's blood pressure also improved with rehydration and a proper sized cuff. Pt will continue to smoke cigarettes and has no plans of stopping. She would like to regain the 20 pounds she has lost over the past year or so. She was evaluated by PT and able to ambulate without assistance- no recommendations for accommodations. Pt deemed stable for discharge 03/19/17. She will complete magnesium 400mg BID for 15 days to replete her magnesium stores- Her hypokalemia resolved with IV and po replacement. She will continue her home potassium supplements. I stopped her lasix as this is likely contributing to her dehydration, hypotension , and electrolyte derangement. Encouraged pt to abstain from drinking too much etoh as this is likely why she is losing weight and becoming dehydrated. Her last comment to staff was that she was going to home and eat pizza and drink margaritas. Labs Laboratory Tests 03/18/17 02:18: Red Blood Count 4.15L, Red Cell Distribution Width 14.9H, Potassium Level 2.8L, Chloride Level 97L, Anion Gap 17H, Blood Urea Nitrogen 19H, Creatinine 1.46H, Glucose Level 119H 03/18/17 04:43: Urine Specific [place] 1.010L, Urine Leukocyte Esterase 2+H, Urine WBC 5-10H, Urine Bacteria MODERATEH 03/18/17 13:58: Albumin 3.0L 03/19/17 04:28: Red Blood Count 3.60L, Red Cell Distribution Width 15.1H, Chloride Level 114H, Albumin 2.8L, Hemoglobin 11.0L, Hematocrit 34L, Carbon Dioxide Level 20L, Magnesium Level 1.7L Procedures None. Discharge Physical Examination Allergies: Coded Allergies: hydrochlorothiazide (Verified Allergy, Intermediate, RASH, 03/18/17) Sulfa (Sulfonamide Antibiotics) (Verified Allergy, Unknown, 03/18/17) levofloxacin (Verified Adverse Reaction, Intermediate, SOA, 03/18/17) Vitals & I&Os Vital Signs Date Time Temp Pulse Resp B/P (MAP) Pulse Ox O2 Delivery O2 Flow Rate FiO2 03/19/17 11:07 03/19/17 04:00 98.7 87 16 94 03/18/17 02:15 Room Air General Appearance: Alert, Oriented X3, Cooperative HEENT: Atraumatic, PERRLA Respiratory: Clear to Auscultation Cardiovascular: Regular Rate Abdominal: Normal Bowel Sounds, Soft Extremities: No Clubbing Skin: No Rashes, No Breakdown Neuro: Normal Gait, Normal Speech, Strength at 5/5 X4 Ext Psych/Mental Status: Mental Status NL Discharge Home Medications Reviewed and agree with Discharge Medication list on patient's Discharge Instruction sheet Condition at Discharge stable Instructions to Patient/Family Please see electronic discharge instructions given to patient. Clinical Quality Measures DVT/VTE Risk/Contraindication: Risk Factor Score Per Nursin RFS Level Per Nursing on Admit: 3=High MADDISON VALERA MD March 19, 2017 10:26
[2017-03-19] MEDS ORDERED: MAGN400T6 PO (10:28)
--- NOTE | 2017-03-19 10:31 | Discharge Inst-Simple/Standard ---
Discharge Inst-Standard Discharge Medications New, Converted or Re-Newed RX: Transmitted to Pharmacy Patient Instructions/Follow Up Plan of Care/Instructions/FU: Discharged to home complete magnesium 400mg BID [id number] Follow up in 1 week at [facility] for weight check, hospital follow up. stay hydrated with water. Activity as Tolerated: Yes Discharge Diet: No Restrictions, Regular Diet Return to The Hospital For: new concerns. MADDISON VALERA MD March 19, 2017 10:31
== END 2017-03-19 10:28 | disposition home or self-care (01) ==
LOC: EDUNIT# 02:15 → ER 02:17 → 4TH 07:17 → UNDOADMOB 07:17 → 4TH 07:45 → UNDODISOB 03-19 11:07
PROVIDERS: ADMIT Family Medicine; ATTEND Family Medicine
DX: E87.6 Hypokalemia (principal); E83.42 Hypomagnesemia; R53.1 Weakness; N39.0 Urinary tract infection, site not specified; E86.1 Hypovolemia; R09.02 Hypoxemia; N18.9 Chronic kidney disease, unspecified; I95.9 Hypotension, unspecified; J44.9 Chronic obstructive pulmonary disease, unspecified; M19.90 Unspecified osteoarthritis, unspecified site; F17.210 Nicotine dependence, cigarettes, uncomplicated; Z85.3 Personal history of malignant neoplasm of breast
CPT/HCPCS: 36415; 71010; 80053; 80069; 81000; 83735; 84443; 85025; 85379; 87088; 93041; 94640; 94760; G0378

== ENCOUNTER 2017-10-30 20:59 | Emergency (ER) | payer MEDICARE, MEDICAID ==
[~2017-10-30] VITALS: Ht 154.9 cm; Wt 36.3 kg
[~2017-10-30 20:59] MED LIST changes: +ASPI-808 PO; +BUDE10.2 IH; +CARV6.252 PO; +CEPH-507 PO; +FURO-124 PO; +MAGN400T6 PO; +POTA10TA10 PO; +TIOT18CA2 IH
[2017-10-30] MEDS ORDERED: NS IV 1000 ML 1,000 ML IV ONE (21:24)
[2017-10-30 22:00] LABS: BASOPHILS % (AUTO) 0 % (0-10); EOSINOPHILS % (AUTO) 0 % (0-10); HEMATOCRIT 31 % (35-52); HEMOGLOBIN 10.6 G/DL (11.5-16.0); LYMPHOCYTES # (AUTO) 1.2 X 10^3 (1.0-4.0); LYMPHOCYTES % (AUTO) 17 % (12-44); MEAN CORPUSCULAR HEMOGLOBIN 31 PG (25-34); MEAN CORPUSCULAR HGB CONC 34 G/DL (32-36); MEAN CORPUSCULAR VOLUME 92 FL (80-99); MEAN PLATELET VOLUME 10.8 FL (7.4-10.4); MONOCYTES # (AUTO) 0.8 X 10^3 (0.0-1.0); MONOCYTES % (AUTO) 10 % (0-12); NEUTROPHILS # (AUTO) 5.2 X 10^3 (1.8-7.8); NEUTROPHILS % (AUTO) 72 % (42-75); PLATELET COUNT 289 10^3/uL (130-400); RED BLOOD COUNT 3.38 10^6/uL (4.35-5.85); RED CELL DISTRIBUTION WIDTH 13.3 % (10.0-14.5); WHITE BLOOD COUNT 7.2 10^3/uL (4.3-11.0)
[2017-10-30 22:18] LABS: ALBUMIN 3.6 GM/DL (3.2-4.5); BILIRUBIN,TOTAL 0.4 MG/DL (0.1-1.0); MAGNESIUM 2.1 MG/DL (1.8-2.4); POTASSIUM 5.7 MMOL/L (3.6-5.0); TOTAL PROTEIN 7.5 GM/DL (6.4-8.2)
[2017-10-30 22:31] LABS: BILIRUBIN,URINE NEGATIVE (NEGATIVE); CLARITY,URINE CLEAR; COLOR,URINE YELLOW; GLUCOSE, URINE (UA) NEGATIVE (NEGATIVE); KETONES,URINE NEGATIVE (NEGATIVE); LEUKOCYTE ESTERASE ,URINE 1+ (NEGATIVE); NITRITE,URINE NEGATIVE (NEGATIVE); PH,URINE 6 (5-9); PROTEIN,URINE 2+ (NEGATIVE); UROBILINOGEN,URINE NORMAL (NORMAL)
[2017-10-30 22:40] LABS: BACTERIA,URINE TRACE /HPF; YEAST,URINE FEW /HPF
--- NOTE | 2017-10-30 23:11 | ED General ---
General Chief Complaint: Cough/Cold/Flu Symptoms Stated Complaint: DEHYDRATION Nursing Triage Note: pt states she has been weak x 1 week and yesterday went to the doctor and received an IM antibiotic, oral decongestant, and cough syrup. pt states she was not told what they were treating. pt states she has decreased energy, poor appetite, feels dehyrated, decreased output, cough, and congestion as well as increased pain throughout middle back. states may have had low grade temperature yesterday. pt amb into exam room but c/o of weakness stating unsure if she could walk that far Nursing Sepsis Screen: Possible Sepsis Risk History of Present Illness Time Seen by Provider: 21:30 Initial Comments 82-year-old female reports feeling weak over the last few days. She is concerned that she is dehydrated. She has recently had her Lasix and potassium changed. She reports having muscle aches in her lower extremities. She was taking potassium 20 mEq twice daily and her know tablets are 40 mEq. She has possibly been receiving too much potassium supplementation. Timing/Duration: Intermittent Severity: Mild Associated Systoms: Malaise, Weakness Allergies and Home Medications Allergies Coded Allergies: hydrochlorothiazide (Verified Allergy, Intermediate, RASH, 03/18/17) Sulfa (Sulfonamide Antibiotics) (Verified Allergy, Unknown, 03/18/17) levofloxacin (Verified Adverse Reaction, Intermediate, SOA, 03/18/17) Home Medications Aspirin 325 Mg Tablet, 325 MG PO HS, (Reported) Budesonide/Formoterol Fumarate 10.2 Gm Hfa.aer.ad, 1 PUFF IH DAILY PRN for SHORTNESS OF BREATH, (Reported) Carvedilol 6.25 Mg Tablet, 6.25 MG PO BID, (Reported) Magnesium Oxide 400 Mg Tablet, 400 MG PO BID, #30 Prescribed by: MADDISON VALERA on 03/19/17 1028 Meloxicam 15 Mg Tablet, 1 EACH PO DAILY PRN for PAIN-MILD, (Reported) Potassium Chloride 10 Meq Tablet.er, 2 TAB PO BID, (Reported) Tiotropium Jones 1 Inh Aerp, 1 PUFF IH DAILY, (Reported) Constitutional: see HPI, weakness Musculoskeletal: see HPI, muscle cramps (lower extremities), muscle weakness ( lower extremities ) All Other Systems Reviewed Negative Unless Noted: Yes Past Ciawbwh-Jeocoi-Piodfi Hx Patient Social History Alcohol Use: Past History Recreational Drug Use: No (SMOKES 1PPD) Smoking Status: Current Everyday Smoker Type Used: Cigarettes 2nd Hand Smoke Exposure: No Recent Foreign Travel: No Contact w/Someone Who Travel: No Recent Infectious Disease Expo: No Recent Hopitalizations: No Physical Abuse: No Sexual Abuse: No Mistreated: No Fear: No Immunizations Up To Date Tetanus Booster (TDap): Less than 5yrs Date of Pneumonia Vaccine: Oct 22, 2012 Seasonal Allergies Seasonal Allergies: No Surgeries History of Surgeries: Yes (mastectomy left) Respiratory History of Respiratory Disorde: No Respiratory Disorders: COPD Cardiovascular History of Cardiac Disorders: Yes (stress test Nov 2011 in [place], denies cardiac issues, heart cath neg) Neurological History of Neurological Disord: No Reproductive System Hx Reproductive Disorders: Yes Sexually Transmitted Disease: No Genitourinary History of Genitourinary Disor: Yes Genitourinary Disorders: Renal Failure Gastrointestinal History of Gastrointestinal Di: Yes Gastrointestinal Disorders: Diverticulosis Musculoskeletal History of Musculoskeletal Dis: Yes Musculoskeletal Disorders: Osteoporosis, Arthritis Endocrine History of Endocrine Disorders: No HEENT History of HEENT Disorders: Yes ("HOLE IN EARDRUMS" REPAIRED, CATARACTS REMOVED ) HEENT Disorders: Cataract Cancer History of Cancer: Yes (Left mastectomy) Cancer: Breast Psychosocial History of Psychiatric Problem: No Suicide Risk Score: 1 Integumentary History of Skin or Integumenta: Yes (SHINGLES 01/05) Blood Transfusions History of Blood Disorders: No Reviewed Nursing Assessment Reviewed/Agree w Nursing PMH: Yes Family Medical History Significant Family History: No Pertinent Family Hx Family Medial History: Cardiovascular disease 19 FATHER G8 BROTHER Diabetes mellitus G8 SISTER Physical Exam Vital Signs Vital Sign - Last 12Hours Capillary Refill : Less Than 3 Seconds General Appearance: No Apparent Distress, WD/WN Eyes: Bilateral Eye Normal Inspection, Bilateral Eye PERRL, Bilateral Eye EOMI HEENT: PERRL/EOMI, TMs Normal, Normal ENT Inspection, Pharynx Normal Neck: Full Range of Motion, Normal Inspection, Non Tender, Supple Respiratory: Chest Non Tender, Lungs Clear, Normal Breath Sounds Cardiovascular: Regular Rate, Rhythm, No Edema, No Murmur, Normal Peripheral Pulses Gastrointestinal: Normal Bowel Sounds, No Organomegaly, No Pulsatile Mass, Non Tender, Soft Extremity: Normal Capillary Refill, No Pedal Edema, Other (generalized cramps bilateral lower extremities) Neurologic/Psychiatric: Alert, Oriented x3, No Motor/Sensory Deficits, Normal Mood/Affect Skin: Normal Color, Warm/Dry, Other (patient has multiple nevi to her upper back, she reports she has had them removed in the past and she does have the monitored by her primary care provider) Progress/Results/Core Measures Suspected Sepsis Recent Fever Within 48 Hours: No Infection Criteria Present: Suspected New Infection New/Unexplained Altered Menta: No Sepsis Screen: Possible Sepsis Risk Sepsis Diagnosis: SIRS Temperature:98.5 Pulse: 118 Respiratory Rate: 22 Laboratory Tests 10/30/17 21:48: White Blood Count 7.2 Blood Pressure 106 /82 Mean: 90 Laboratory Tests 10/30/17 21:48: Creatinine 2.00H, Platelet Count 289, Total Bilirubin 0.4 Results/Orders Lab Results Laboratory Tests Test 10/30/17 21:48 10/30/17 22:25 Range/Units White Blood Count 7.2 4.3-11.0 10^3/uL Red Blood Count 3.38 L 4.35-5.85 10^6/uL Hemoglobin 10.6 L 11.5-16.0 G/DL Hematocrit 31 L 35-52 % Mean Corpuscular Volume 92 80-99 FL Mean Corpuscular Hemoglobin 31 25-34 PG Mean Corpuscular Hemoglobin Concent 34 32-36 G/DL Red Cell Distribution Width 13.3 10.0-14.5 % Platelet Count 289 130-400 10^3/uL Mean Platelet Volume 10.8 H 7.4-10.4 FL Neutrophils (%) (Auto) 72 42-75 % Lymphocytes (%) (Auto) 17 12-44 % Monocytes (%) (Auto) 10 0-12 % Eosinophils (%) (Auto) 0 0-10 % Basophils (%) (Auto) 0 0-10 % Neutrophils # (Auto) 5.2 1.8-7.8 X 10^3 Lymphocytes # (Auto) 1.2 1.0-4.0 X 10^3 Monocytes # (Auto) 0.8 0.0-1.0 X 10^3 Eosinophils # (Auto) 0.0 0.0-0.3 10^3/uL Basophils # (Auto) 0.0 0.0-0.1 10^3/uL Sodium Level 135 135-145 MMOL/L Potassium Level 5.7 H 3.6-5.0 MMOL/L Chloride Level 101 98-107 MMOL/L Carbon Dioxide Level 19 L 21-32 MMOL/L Anion Gap 15 H 5-14 MMOL/L Blood Urea Nitrogen 30 H 7-18 MG/DL Creatinine 2.00 H 0.60-1.30 MG/DL Estimat Glomerular Filtration Rate 24 BUN/Creatinine Ratio 15 Glucose Level 145 H 70-105 MG/DL Calcium Level 9.0 8.5-10.1 MG/DL Magnesium Level 2.1 1.8-2.4 MG/DL Total Bilirubin 0.4 0.1-1.0 MG/DL Aspartate Amino Transf (AST/SGOT) 33 5-34 U/L Alanine Aminotransferase (ALT/SGPT) 18 0-55 U/L Alkaline Phosphatase 110 40-136 U/L Total Protein 7.5 6.4-8.2 GM/DL Albumin 3.6 3.2-4.5 GM/DL Urine Color YELLOW Urine Clarity CLEAR Urine pH 6 5-9 Urine Specific [place] 1.020 1.016-1.022 Urine Protein 2+ H NEGATIVE Urine Glucose (UA) NEGATIVE NEGATIVE Urine Ketones NEGATIVE NEGATIVE Urine Nitrite NEGATIVE NEGATIVE Urine Bilirubin NEGATIVE NEGATIVE Urine Urobilinogen NORMAL NORMAL MG/DL Urine Leukocyte Esterase 1+ H NEGATIVE Urine RBC (Auto) 2+ H NEGATIVE Urine RBC 2-5 H /HPF Urine WBC 2-5 /HPF Urine Squamous Epithelial Cells 10-25 H /HPF Urine Crystals NONE /LPF Urine Bacteria TRACE /HPF Urine Casts NONE /LPF Urine Mucus NEGATIVE /LPF Urine Yeast FEW H /HPF Urine Culture Indicated NO My Orders Orders - TITI LIU Saline Lock/Iv-Start (10/30/17 21:24) Ns Iv 1000 Ml (Sodium Chloride 0.9%) (10/30/17 21:24) Ua Culture If Indicated (10/30/17 21:24) Cbc With Automated Diff (10/30/17 21:43) Comprehensive Metabolic Panel (10/30/17 21:43) Magnesium (10/30/17 21:43) Medications Given in ED Current Medications Medications Dose Ordered Sig/Oscar Route Start Time Stop Time Status Last Admin Dose Admin Sodium Chloride 1,000 ml @ 0 mls/hr Q0M ONCE IV 10/30/17 21:24 10/30/17 21:25 DC 10/30/17 21:59 0 MLS/HR Vital Signs/I&O Vital Sign - Last 12Hours 10/30/17 10/30/17 21:31 21:31 Temp 98.5 Pulse 118 Resp 22 B/P (MAP) 106/82 (90) O2 Delivery Room Air Room Air Capillary Refill : Less Than 3 Seconds Blood Pressure Mean: 90 Progress Note : Time: 21:30 Progress Note Initial evaluation completed, recommended IV fluids, normal saline 1 L. Will get labs CBC, CMP and UA. Patient taking water orally. 2210 WBC 7.2, hemoglobin 10.6, hematocrit 31, sodium 135, potassium 5.7, BUNs 30, creatinine 2.0, glucose 145. UA essentially normal. Scuffed the hyperkalemia with the patient, she does believe that she is been taking more potassium than she was supposed to since her pills haven't changed recently. We discussed holding her potassium tomorrow and then resuming at the next day. He will also increase her water intake. 2250 discharge planning discussed with the patient, she feels she is doing better. Her vital signs of essentially been stable since admission. She has been lightly hypotensive but with improvement after fluids. She ambulated to the restroom with minimal assistance. She will follow up with her primary care provider if symptoms are not improving in a day or 2. Return precautions reviewed with her. Departure Impression Impression: Primary Impression: generalized weakness Additional Impression: Hyperkalemia Disposition: 01 HOME, SELF-CARE Condition: Stable Departure-Patient Inst. Decision time for Depature: 22:50 Referrals: NO,LOCAL PHYSICIAN (PCP/Family) Primary Care Physician Patient Instructions: Fatigue (DC), Hyperkalemia (DC) Add. Discharge Instructions: Continue taking her Lasix as prescribed. Hold your potassium tomorrow. Have follow-up labs later this week. Increase her water intake. Return to emergency department if symptoms worsen or new problems. All discharge instructions reviewed with patient and/or family. Voiced understanding. TITI LIU Oct 30, 2017 23:11
[2017-10-30 23:39] VITALS: BP 110/82
== END 2017-10-30 23:39 | disposition home or self-care (01) ==
LOC: EDUNIT# 20:59 → ER 21:01
DX: R53.1 Weakness (principal); E87.5 Hyperkalemia; J44.9 Chronic obstructive pulmonary disease, unspecified; M81.0 Age-related osteoporosis without current pathological fracture; F17.210 Nicotine dependence, cigarettes, uncomplicated; Z87.19 Personal history of other diseases of the digestive system; Z90.12 Acquired absence of left breast and nipple; Z82.49 Family history of ischemic heart disease and other diseases of the circulatory system; Z79.82 Long term (current) use of aspirin
CPT/HCPCS: 36415; 80053; 81000; 83735; 85025; 96360

== ENCOUNTER 2017-11-10 21:47 | Inpatient (IN) | payer MEDICARE, MEDICAID ==
[~2017-11-10] VITALS: Ht 154.9 cm; Wt 40.9 kg
[2017-11-10] MEDS ORDERED: RT-ALBUTEROL/IPRATROPIUM 3 ML (DUONEB) VIAL INH ONE (22:15)
--- NOTE | 2017-11-10 22:21 | ED Respiratory ---
General Stated Complaint: SWOLLEN ANKLES, "HARD TO BREATHE" Source: patient Exam Limitations: no limitations History of Present Illness Date Seen by Provider: Nov 10, 2017 Time Seen by Provider: 22:16 Initial Comments Last week the patient has experienced progressively worsening shortness of air and swelling around her ankles. She has a history of heart failure as well as COPD. She's been using her Symbicort, Spiriva, albuterol nebulizer 4 times a day. She has no chest pains or shortness of air especially on exertion. Patient came by private conveyance. She recently had some blood work done last week showing that her potassium was back under control and she is not on any potassium tablets now. She's recently also been using Lasix 40 mg once a day but today she took 80 mg 1 because of the swelling and it did not help so she decided to come the ER for assistance. She denies any fevers, chills, sick contacts, cough. She still smokes about0.25 ppd. Allergies and Home Medications Allergies Coded Allergies: hydrochlorothiazide (Verified Allergy, Intermediate, RASH, 03/18/17) Sulfa (Sulfonamide Antibiotics) (Verified Allergy, Unknown, 03/18/17) levofloxacin (Verified Adverse Reaction, Intermediate, SOA, 03/18/17) Home Medications Aspirin 325 Mg Tablet, 325 MG PO HS, (Reported) Budesonide/Formoterol Fumarate 10.2 Gm Hfa.aer.ad, 1 PUFF IH DAILY PRN for SHORTNESS OF BREATH, (Reported) Carvedilol 6.25 Mg Tablet, 6.25 MG PO BID, (Reported) Magnesium Oxide 400 Mg Tablet, 400 MG PO BID, #30 Prescribed by: MADDISON VALERA on 03/19/17 1028 Meloxicam 15 Mg Tablet, 1 EACH PO DAILY PRN for PAIN-MILD, (Reported) Potassium Chloride 10 Meq Tablet.er, 2 TAB PO BID, (Reported) Tiotropium [place] 1 Inh Aerp, 1 PUFF IH DAILY, (Reported) Constitutional: No chills, No diaphoresis, No fever, No malaise EENTM: No ear discharge, No ear pain Respiratory: see HPI, No cough, short of breath, No wheezing Cardiovascular: No chest pain, edema, No palpitations, No syncope Gastrointestinal: No abdominal pain, No constipation, No diarrhea, No nausea, No vomiting Genitourinary: No discharge, No dysuria Musculoskeletal: No back pain, No joint pain Skin: No pruritus, No rash Past Rizahxg-Ioxusv-Ecyqjy Hx Patient Social History Alcohol Use: Denies Use Smoking Status: Current Everyday Smoker Type Used: Cigarettes 2nd Hand Smoke Exposure: No Recent Foreign Travel: No Contact w/Someone Who Travel: No Recent Hopitalizations: No Immunizations Up To Date Tetanus Booster (TDap): Less than 5yrs Date of Pneumonia Vaccine: Oct 22, 2012 Seasonal Allergies Seasonal Allergies: No Surgeries History of Surgeries: Yes (mastectomy left) Respiratory History of Respiratory Disorde: No Respiratory Disorders: COPD Cardiovascular History of Cardiac Disorders: Yes (stress test Nov 2011 in [place], denies cardiac issues, heart cath neg) Neurological History of Neurological Disord: No Reproductive System Hx Reproductive Disorders: Yes Sexually Transmitted Disease: No Genitourinary History of Genitourinary Disor: Yes Genitourinary Disorders: Renal Failure Gastrointestinal History of Gastrointestinal Di: Yes Gastrointestinal Disorders: Diverticulosis Musculoskeletal History of Musculoskeletal Dis: Yes Musculoskeletal Disorders: Osteoporosis, Arthritis Endocrine History of Endocrine Disorders: No HEENT History of HEENT Disorders: Yes ("HOLE IN EARDRUMS" REPAIRED, CATARACTS REMOVED ) HEENT Disorders: Cataract Cancer History of Cancer: Yes (Left mastectomy) Cancer: Breast Psychosocial History of Psychiatric Problem: No Integumentary History of Skin or Integumenta: Yes (SHINGLES 01/05) Blood Transfusions History of Blood Disorders: No Family Medical History Significant Family History: No Pertinent Family Hx Family Medial History: Cardiovascular disease 19 FATHER G8 BROTHER Diabetes mellitus G8 SISTER Physical Exam Vital Signs Vital Sign - Last 12Hours 11/10/17 22:07 Temp 98.2 Pulse 98 Resp 20 B/P (MAP) 91/72 (78) Pulse Ox 96 O2 Delivery Room Air Capillary Refill : General Appearance: WD/WN, no apparent distress Eyes: Bilateral Eye Normal Inspection, Bilateral Eye PERRL, Bilateral Eye EOMI HEENT: PERRL/EOMI, normal ENT inspection, TMs normal, pharynx normal Neck: non-tender, supple, normal inspection Respiratory: chest non-tender, lungs clear, no respiratory distress, no accessory muscle use, decreased breath sounds Cardiovascular: normal peripheral pulses, regular rate, rhythm, other ( bilateral 1+ pitting pedal edema at the level of the ankles.) Gastrointestinal: normal bowel sounds, non tender, soft Extremities: non-tender, no calf tenderness, normal capillary refill Neurologic/Psychiatric: alert, normal mood/affect, oriented x 3 Skin: normal color, warm/dry Progress/Results/Core Measures Suspected Sepsis SIRS Temperature: Pulse: Respiratory Rate: Laboratory Tests 11/10/17 22:10: White Blood Count 9.1 Blood Pressure / Mean: Laboratory Tests 11/10/17 22:10: Creatinine 1.70H, Platelet Count 509H, Total Bilirubin 0.7 Results/Orders Lab Results Laboratory Tests Test 11/10/17 22:10 Range/Units White Blood Count 9.1 4.3-11.0 10^3/uL Red Blood Count 3.40 L 4.35-5.85 10^6/uL Hemoglobin 10.5 L 11.5-16.0 G/DL Hematocrit 31 L 35-52 % Mean Corpuscular Volume 91 80-99 FL Mean Corpuscular Hemoglobin 31 25-34 PG Mean Corpuscular Hemoglobin Concent 34 32-36 G/DL Red Cell Distribution Width 14.0 10.0-14.5 % Platelet Count 509 H 130-400 10^3/uL Mean Platelet Volume 9.6 7.4-10.4 FL Neutrophils (%) (Auto) 75 42-75 % Lymphocytes (%) (Auto) 15 12-44 % Monocytes (%) (Auto) 10 0-12 % Eosinophils (%) (Auto) 1 0-10 % Basophils (%) (Auto) 1 0-10 % Neutrophils # (Auto) 6.8 1.8-7.8 X 10^3 Lymphocytes # (Auto) 1.3 1.0-4.0 X 10^3 Monocytes # (Auto) 0.9 0.0-1.0 X 10^3 Eosinophils # (Auto) 0.1 0.0-0.3 10^3/uL Basophils # (Auto) 0.1 0.0-0.1 10^3/uL Sodium Level 135 135-145 MMOL/L Potassium Level 4.5 3.6-5.0 MMOL/L Chloride Level 97 L 98-107 MMOL/L Carbon Dioxide Level 19 L 21-32 MMOL/L Anion Gap 19 H 5-14 MMOL/L Blood Urea Nitrogen 31 H 7-18 MG/DL Creatinine 1.70 H 0.60-1.30 MG/DL Estimat Glomerular Filtration Rate 29 BUN/Creatinine Ratio 18 Glucose Level 101 70-105 MG/DL Calcium Level 8.8 8.5-10.1 MG/DL Magnesium Level 2.2 1.8-2.4 MG/DL Total Bilirubin 0.7 0.1-1.0 MG/DL Aspartate Amino Transf (AST/SGOT) 26 5-34 U/L Alanine Aminotransferase (ALT/SGPT) 26 0-55 U/L Alkaline Phosphatase 165 H 40-136 U/L Troponin I < 0.30 <0.30 NG/ML B-Type Natriuretic Peptide 9254.7 H <100.0 PG/ML Total Protein 6.9 6.4-8.2 GM/DL Albumin 3.5 3.2-4.5 GM/DL My Orders Orders - DIAZ BLUE Troponin I (11/10/17 22:12) Ekg Tracing (11/10/17 22:12) Saline Lock/Iv-Start (11/10/17 22:12) Monitor-Rhythm Ecg Trace Only (11/10/17 22:12) BNP (11/10/17 22:12) Cbc With Automated Diff (11/10/17 22:12) Comprehensive Metabolic Panel (11/10/17 22:12) Magnesium (11/10/17 22:12) Chest Pa/Lat (2 View) (11/10/17 22:12) Albuterol/Ipra Inhalation Soln (Duoneb I (11/10/17 22:15) Svn Sm Volume Nebulizer Rt-Rfs (11/10/17 22:12) Furosemide Injection (Lasix Injection) (11/10/17 23:30) Medications Given in ED Current Medications Medications Dose Ordered Sig/Oscar Route Start Time Stop Time Status Last Admin Dose Admin Albuterol/ Ipratropium 3 ml ONCE ONCE INH 11/10/17 22:15 11/10/17 22:16 DC 11/10/17 22:32 3 ML Vital Signs/I&O Vital Sign - Last 12Hours 11/10/17 11/10/17 22:07 22:34 Temp 98.2 Pulse 98 Resp 20 B/P (MAP) 91/72 (78) Pulse Ox 96 90 O2 Delivery Room Air Room Air Capillary Refill : Progress Note : Time: 22:21 Progress Note Exacerbation of heart failure versus COPD. She's not having any wheezing although she has been using her albuterol. She is decreased sounds that may improve after DuoNeb indicating more of a COPD component but this seems to be more of a heart failure. We'll check a BNP. Last echocardiograms from 2011 showing an ejection fraction of 40% and elevated. Pulmonic pressure about 40 mmHg. Mild aortic sclerosis and mild-to- moderate aortic insufficiency. No evidence of underlying aortic stenosis. Left ventricle and atrium are mildly dilated at that time. The patient's anemia is stable since last blood draw earlier in the month and is chronic. ECG Initial ECG Impression Date: Nov 10, 2017 Initial ECG Impression Time: 22:25 Initial ECG Rate: 88 Initial ECG Rhythm: Normal Sinus Initial ECG Intervals: NM (152) Initial ECG Impression: Nonspecific Changes Initial ECG Comparisson: Unchanged (left bundle branch block) Comment Left bundle branch block with no changes seen from EKG in February 2017 Diagnostic Imaging Diagonstic Imaging: Xray Plain Films/CT/US/NM/MRI: chest (2v) Comments Moderate pulmonary congestion, pleural effusion is mild on bilateral bases. No infiltrates seen. Reviewed: Reviewed by Me Consults Consults : Consulting Physician: KORINA LEDESMA MD Departure Communication (Admissions) Time/Spoke to Admitting Phy: 23:[address] Flor will see the patient Time/Spoke to Consulting Phy: 23:36 Communication/Consulting He is okay with Lasix 60 mg times one now some potassium and he'll see the patient in the morning. He is okay with ICU just because the blood pressure but probably wouldn't do anything about it right now. Impression Impression: Primary Impression: acute exacerbation of congestive heart failure Additional Impression: Hypotension Qualified Codes: I95.9 - Hypotension, unspecified Disposition: ADMITTED INPATIENT Condition: Stable Admissions Decision to Admit Reason: Admit from ER (General) Decision to Admit/Date: Nov 10, 2017 Time/Decision to Admit Time: 23:37 Departure-Patient Inst. Referrals: ELIESER SALVADOR DO (PCP/Family) Primary Care Physician DIAZ BLUE Nov 10, 2017 22:21
[2017-11-10 22:31] LABS: BASOPHILS # (AUTO) 0.1 10^3/uL (0.0-0.1); BASOPHILS % (AUTO) 1 % (0-10); EOSINOPHILS # (AUTO) 0.1 10^3/uL (0.0-0.3); EOSINOPHILS % (AUTO) 1 % (0-10); HEMATOCRIT 31 % (35-52); HEMOGLOBIN 10.5 G/DL (11.5-16.0); LYMPHOCYTES # (AUTO) 1.3 X 10^3 (1.0-4.0); LYMPHOCYTES % (AUTO) 15 % (12-44); MEAN CORPUSCULAR HEMOGLOBIN 31 PG (25-34); MEAN CORPUSCULAR HGB CONC 34 G/DL (32-36); MEAN CORPUSCULAR VOLUME 91 FL (80-99); MEAN PLATELET VOLUME 9.6 FL (7.4-10.4); MONOCYTES # (AUTO) 0.9 X 10^3 (0.0-1.0); MONOCYTES % (AUTO) 10 % (0-12); NEUTROPHILS # (AUTO) 6.8 X 10^3 (1.8-7.8); NEUTROPHILS % (AUTO) 75 % (42-75); PLATELET COUNT 509 10^3/uL (130-400); WHITE BLOOD COUNT 9.1 10^3/uL (4.3-11.0)
[2017-11-10 22:55] LABS: ALBUMIN 3.5 GM/DL (3.2-4.5); BILIRUBIN,TOTAL 0.7 MG/DL (0.1-1.0); CALCIUM 8.8 MG/DL (8.5-10.1); CREATININE SERUM 1.7 MG/DL (0.60-1.30); MAGNESIUM 2.2 MG/DL (1.8-2.4); POTASSIUM 4.5 MMOL/L (3.6-5.0); TOTAL PROTEIN 6.9 GM/DL (6.4-8.2)
[2017-11-10] MEDS ORDERED: FUROSEMIDE 40 MG/4 ML INJ (LASIX) IVP ONE ×2 (23:30→23:45)
[2017-11-11] VITALS (19 sets, daily range): BP systolic 79–105; BP diastolic 57–83
--- OUTSIDE RECORDS SUMMARY | 2017-11-11 00:03 | XMS REPORT | Continuity of Care Document ---
Author Author [facility] Organization [facility] Address Unknown Phone Unavailable Allergies Active Description Code Type Severity Reaction Onset Reported/Identified Relationship to Patient Clinical Status Yes hydrochlorothiazide [id number] Drug Allergy Moderate RASH 03/18/2017 Yes levofloxacin [id number] Drug Allergy Moderate SOA 03/18/2017 Yes milk [id number] Drug Allergy Mild upset stomach 03/18/2017 Yes Sulfa (Sulfonamide Antibiotics) [id number] Drug Allergy Unknown N/A 2016 Medications There is no data. Problems Date Dx Coded Attending Type Code [...] Ot 593.9 RENAL URETERAL DIS NOS 07/14/2013 KAREEM PETERSON, BI Gandhi Ot 719.7 DIFFICULTY IN WALKING 07/14/2013 KAREEM PETERSON, BI Gandhi Ot 783.0 ANOREXIA 09/06/2013 BI SERNA MD Ot 428.0 CONGESTIVE HEART FAILURE NOS 09/06/2013 BI SERNA MD Ot 780.79 OTH MALAISE FATIGUE 09/06/2013 BI SERNA MD Ot 799.02 HYPOXEMIA 01/07/2017 ANGEL PETERSON, QUENTIN Gerardo Ot 562.10 DIVERTICULOSIS COLON (W/O MENT OF HEMORR 01/07/2017 QUENTIN ORTIZ MD Ot 592.0 CALCULUS OF KIDNEY 01/07/2017 QUENTIN ORTIZ MD Ot 789.00 ABDOMINAL PAIN, UNSPECIFIED SITE 01/07/2017 LOUISE REES APRN Ot B02.9 ZOSTER WITHOUT COMPLICATIONS 01/07/2017 LOUISE REES APRN Ot J44.9 CHRONIC OBSTRUCTIVE PULMONARY DISEASE, U 01/07/2017 LOUISE REES APRN Ot R21 RASH AND OTHER NONSPECIFIC SKIN ERUPTION 01/07/2017 LOUISE REES APRN Ot R42 DIZZINESS AND GIDDINESS 01/07/2017 LOUISE REES APRN Ot R53.1 WEAKNESS 01/07/2017 LOUISE REES APRN Ot Z79.82 RETIREMENT (CURRENT) USE OF ASPIRIN 01/07/2017 LOUISE REES APRN Ot Z79.899 OTHER SURGICAL SERVICES ASST (CURRENT) DRUG THERAPY 01/09/2017 RONY SALAZAR MD Ot B02.9 ZOSTER WITHOUT COMPLICATIONS 01/09/2017 RONY SALAZAR MD Ot E86.0 DEHYDRATION 01/09/2017 RONY SALAZAR MD Ot F17.210 NICOTINE DEPENDENCE, CIGARETTES, UNCOMPL 01/09/2017 RONY SALAZAR MD, Ot J44.9 CHRONIC OBSTRUCTIVE PULMONARY DISEASE, U 01/09/2017 RONY SALAZAR MD Ot R30.0 DYSURIA 01/09/2017 RONY SALAZAR MD Ot Z79.82 SURGICAL SERVICES ASST (CURRENT) USE OF ASPIRIN 01/09/2017 RONY SALAZAR MD Ot Z79.899 OTHER SURGICAL SERVICES ASST (CURRENT) DRUG THERAPY 01/09/2017 LOUISE REES APRN Ot B02.9 ZOSTER WITHOUT COMPLICATIONS 01/09/2017 LOUISE REES APRN Ot J44.9 CHRONIC OBSTRUCTIVE PULMONARY DISEASE, U 01/09/2017 REES, PETER J SAMPLE CUTTER Ot R21 RASH AND OTHER NONSPECIFIC SKIN ERUPTION 01/09/2017 LOUISE REES SAMPLE CUTTER Ot R42 DIZZINESS AND GIDDINESS 01/09/2017 LOUISE REES SAMPLE CUTTER Ot R53.1 WEAKNESS 01/09/2017 LOUISE REES SAMPLE CUTTER Ot Z79.82 RETIREMENT (CURRENT) USE OF ASPIRIN 01/09/2017 LOUISE REES SAMPLE CUTTER Ot Z79.899 OTHER RETIREMENT (CURRENT) DRUG THERAPY 01/13/2017 LOUISE REES SAMPLE CUTTER Ot B02.9 ZOSTER WITHOUT COMPLICATIONS 01/13/2017 LOUISE REES SAMPLE CUTTER Ot J44.9 CHRONIC OBSTRUCTIVE PULMONARY DISEASE, U 01/13/2017 LOUISE REES APRN Ot R21 RASH AND OTHER NONSPECIFIC SKIN ERUPTION 01/13/2017 LOUISE REES APRN Ot R42 DIZZINESS AND GIDDINESS 01/13/2017 LOUISE REES APRN Ot R53.1 WEAKNESS 01/13/2017 LOUISE REES APRN Ot Z79.82 SURGICAL SERVICES ASST (CURRENT) USE OF ASPIRIN 01/13/2017 LOUISE REES SAMPLE CUTTER Ot Z79.899 OTHER RETIREMENT (CURRENT) DRUG THERAPY 01/19/2017 KAMINI JONES MD Ot B02.9 ZOSTER WITHOUT COMPLICATIONS 01/19/2017 KAMINI JONES MD Ot Z79.82 RETIREMENT (CURRENT) USE OF ASPIRIN 01/19/2017 KAMINI JONES MD Ot Z79.899 OTHER RETIREMENT (CURRENT) DRUG THERAPY 01/19/2017 KAMINI JONES MD Ot Z85.3 PERSONAL HISTORY OF MALIGNANT NEOPLASM O 01/19/2017 KAMINI JONES MD Ot Z90.12 ACQUIRED ABSENCE OF LEFT BREAST AND NIPP 01/30/2017 LOUISE REES SAMPLE CUTTER Ot B02.29 OTHER POSTHERPETIC NERVOUS SYSTEM INVOLV 01/30/2017 LOUISE REES APRN Ot J44.9 CHRONIC OBSTRUCTIVE PULMONARY DISEASE, U 01/30/2017 LOUISE REES APRN Ot Z79.82 RETIREMENT (CURRENT) USE OF ASPIRIN 01/30/2017 LOUISE REES SAMPLE CUTTER Ot Z79.899 OTHER SURGICAL SERVICES ASST (CURRENT) DRUG THERAPY 01/31/2017 LOUISE REES SAMPLE CUTTER Ot B02.29 OTHER POSTHERPETIC NERVOUS SYSTEM INVOLV 01/31/2017 LOUISE REES APRN Ot J44.9 CHRONIC OBSTRUCTIVE PULMONARY DISEASE, U 01/31/2017 LOUISE REES SAMPLE CUTTER Ot Z79.82 RETIREMENT (CURRENT) USE OF ASPIRIN 01/31/2017 LOUISE REES SAMPLE CUTTER Ot Z79.899 OTHER RETIREMENT (CURRENT) DRUG THERAPY 02/05/2017 BI SERNA MD Ot B02.9 ZOSTER WITHOUT COMPLICATIONS 02/05/2017 BI SERNA MD T Ot F17.210 NICOTINE DEPENDENCE, CIGARETTES, UNCOMPL 02/05/2017 BI SERNA MD Ot J44.9 CHRONIC OBSTRUCTIVE PULMONARY DISEASE, U 02/05/2017 BI SERNA MD Ot K57.30 DVRTCLOS OF LG INT W/O PERFORATION OR AB 02/05/2017 BI SERNA MD Ot K80.20 CALCULUS OF GALLBLADDER W/O CHOLECYSTITI 02/05/2017 BI SERNA MD T Ot R10.32 LEFT LOWER QUADRANT PAIN 02/05/2017 BI SERNA MD Ot Z79.82 SURGICAL SERVICES ASST (CURRENT) USE OF ASPIRIN 02/05/2017 BI SERNA MD Ot Z79.899 OTHER RETIREMENT (CURRENT) DRUG THERAPY 02/06/2017 BI SERNA MD Ot B02.9 ZOSTER WITHOUT COMPLICATIONS 02/06/2017 BI SERNA MD Ot F17.210 NICOTINE DEPENDENCE, CIGARETTES, UNCOMPL 02/06/2017 BI SERNA MD Ot J44.9 CHRONIC OBSTRUCTIVE PULMONARY DISEASE, U 02/06/2017 BI SERNA MD Ot K57.30 DVRTCLOS OF LG INT W/O PERFORATION OR AB 02/06/2017 BI SERNA MD T Ot K80.20 CALCULUS OF GALLBLADDER W/O CHOLECYSTITI 02/06/2017 BI SERNA MD T Ot R10.32 LEFT LOWER QUADRANT PAIN 02/06/2017 BI SERNA MD Ot Z79.82 RETIREMENT (CURRENT) USE OF ASPIRIN 02/06/2017 BI SERNA MD T Ot Z79.899 OTHER RETIREMENT (CURRENT) DRUG THERAPY 02/15/2017 BI SERNA MD Ot B02.9 ZOSTER WITHOUT COMPLICATIONS 02/15/2017 BI SERNA MD Ot F17.210 NICOTINE DEPENDENCE, CIGARETTES, UNCOMPL 02/15/2017 BI SERNA MD, Ot J44.9 CHRONIC OBSTRUCTIVE PULMONARY DISEASE, U 02/15/2017 BI SERNA MD, Ot K57.30 DVRTCLOS OF LG INT W/O PERFORATION OR AB 02/15/2017 BI SERNA MD, Ot K80.20 CALCULUS OF GALLBLADDER W/O CHOLECYSTITI 02/15/2017 BI SERNA MD Ot R10.32 LEFT LOWER QUADRANT PAIN 02/15/2017 BI SERNA MD Ot Z79.82 SURGICAL SERVICES ASST (CURRENT) USE OF ASPIRIN 02/15/2017 BI SERNA MD Ot Z79.899 OTHER RETIREMENT (CURRENT) DRUG THERAPY 03/18/2017 ANGEL PETERSON, QUENTIN Gerardo Ot 562.10 DIVERTICULOSIS COLON (W/O MENT OF HEMORR 03/18/2017 QUENTIN ORTIZ MD Ot 592.0 CALCULUS OF KIDNEY 03/18/2017 QUENTIN ORTIZ MD Ot 789.00 ABDOMINAL PAIN, UNSPECIFIED SITE 03/19/2017 MADDISON VALERA MD Ot E83.42 HYPOMAGNESEMIA 03/19/2017 MADDISON VALERA MD, Ot E86.1 HYPOVOLEMIA 03/19/2017 MADDISON VALERA MD Ot E87.6 HYPOKALEMIA 03/19/2017 MADDISON VALERA MD Ot F17.210 NICOTINE DEPENDENCE, CIGARETTES, UNCOMPL 03/19/2017 MADDISON VALERA MD Ot I95.9 HYPOTENSION, UNSPECIFIED 03/19/2017 MADDISON VALERA MD, Ot J44.9 CHRONIC OBSTRUCTIVE PULMONARY DISEASE, U 03/19/2017 MADDISON VALERA MD Ot M19.90 UNSPECIFIED OSTEOARTHRITIS, UNSPECIFIED 03/19/2017 MADDISON VALERA MD Ot N18.9 CHRONIC KIDNEY DISEASE, UNSPECIFIED 03/19/2017 MADDISON VALERA MD Ot N39.0 URINARY TRACT INFECTION, SITE NOT SPECIF 03/19/2017 MADDISON VALERA MD Ot R09.02 HYPOXEMIA 03/19/2017 MADDISON VALERA MD Ot R53.1 WEAKNESS 03/19/2017 MADDISON VALERA MD Ot Z85.3 PERSONAL HISTORY OF MALIGNANT NEOPLASM O 10/30/2017 NOE, TITI WELD L[employer] OUT WORKER Ot E86.0 DEHYDRATION 10/30/2017 NOE, TITI WELD LAY OUT WORKER Ot E87.5 HYPERKALEMIA 10/30/2017 NOE, TITI WELD LAY OUT WORKER Ot F17.210 NICOTINE DEPENDENCE, CIGARETTES, UNCOMPL 10/30/2017 NOE, TITI WELD LAY OUT WORKER Ot J44.9 CHRONIC OBSTRUCTIVE PULMONARY DISEASE, U 10/30/2017 NOE, TITI WELD LAY OUT WORKER Ot M81.0 AGE-RELATED OSTEOPOROSIS W/O CURRENT PAT 10/30/2017 NOE, TITI WELD LAY OUT WORKER Ot R53.1 WEAKNESS 10/30/2017 NOE, TITI WELD LAY OUT WORKER Ot Z79.82 SURGICAL SERVICES ASST (CURRENT) USE OF ASPIRIN 10/30/2017 NOE, TITI WELD LAY OUT WORKER Ot Z82.49 FAMILY HX OF ISCHEM HEART DIS AND OTH DI 10/30/2017 NOE, TITI WELD LAY OUT WORKER Ot Z87.19 PERSONAL HISTORY OF OTHER DISEASES OF TH 10/30/2017 NOE, TITI WELD LAY OUT WORKER Ot Z90.12 ACQUIRED ABSENCE OF LEFT BREAST AND NIPP 11/01/2017 NOE, TITI WELD LAY OUT WORKER Ot E86.0 DEHYDRATION 11/01/2017 NOE, TITI WELD LAY OUT WORKER Ot E87.5 HYPERKALEMIA 11/01/2017 NOE, TITI WELD LAY OUT WORKER Ot F17.210 NICOTINE DEPENDENCE, CIGARETTES, UNCOMPL 11/01/2017 NOE, TITI WELD LAY OUT WORKER Ot J44.9 CHRONIC OBSTRUCTIVE PULMONARY DISEASE, U 11/01/2017 NOE, TITI WELD LAY OUT WORKER Ot M81.0 AGE-RELATED OSTEOPOROSIS W/O CURRENT PAT 11/01/2017 NOE, TITI WELD LAY OUT WORKER Ot R53.1 WEAKNESS 11/01/2017 NOE, TITI WELD LAY OUT WORKER Ot Z79.82 SURGICAL SERVICES ASST (CURRENT) USE OF ASPIRIN 11/01/2017 NOE, TITI WELD LAY OUT WORKER Ot Z82.49 FAMILY HX OF ISCHEM HEART DIS AND OTH DI 11/01/2017 NOE, TITI WELD LAY OUT WORKER Ot Z87.19 PERSONAL HISTORY OF OTHER DISEASES OF TH 11/01/2017 NOE, TITI WELD LAY OUT WORKER Ot Z90.12 ACQUIRED ABSENCE OF LEFT BREAST AND NIPP Procedures There is no data. Results Test Result Range Complete blood count (CBC) with automated white blood cell (WBC) differential - 01/07/17 15:13 Blood leukocytes automated count (number/volume) 5.0 10*3/uL 4.3-11.0 Blood erythrocytes automated count (number/volume) 4.08 10*6/uL 4.35-5.85 Venous blood hemoglobin measurement (mass/volume) 12.8 [...] Automated blood platelet mean volume measurement 9.9 [foz_us] 7.4-10.4 Automated blood neutrophils/100 leukocytes 80 % [...] Serum or plasma sodium measurement (moles/volume) 133 mmol/L 135-145 Serum or plasma potassium measurement (moles/volume) 3.5 mmol/L 3.6-5.0 Serum or plasma chloride measurement (moles/volume) 100 mmol/L 98-107 Carbon dioxide 21 mmol/L 21-32 Serum or plasma anion gap determination (moles/volume) 12 mmol/L 5-14 Serum or plasma urea nitrogen measurement (mass/volume) 19 mg/dL 7-18 Serum or plasma creatinine measurement (mass/volume) 1.67 mg/dL 0.60-1.30 Serum or plasma urea nitrogen/creatinine mass [...] 23:35 Blood leukocytes automated count (number/volume) 5.1 10*3/uL 4.3-11.0 Blood erythrocytes automated count (number/volume) 3.69 10*6/uL 4.35-5.85 Venous blood hemoglobin measurement (mass/volume) 11.6 [...] Automated blood platelet mean volume measurement 10.5 [foz_us] 7.4-10.4 Automated blood neutrophils/100 leukocytes 62 % [...] Serum or plasma sodium measurement (moles/volume) 129 mmol/L 135-145 Serum or plasma potassium measurement (moles/volume) 3.8 mmol/L 3.6-5.0 Serum or plasma chloride measurement (moles/volume) 97 mmol/L 98-107 Carbon dioxide 20 mmol/L 21-32 Serum or plasma anion gap determination (moles/volume) 12 mmol/L 5-14 Serum or plasma urea nitrogen measurement (mass/volume) 22 mg/dL 7-18 Serum or plasma creatinine measurement (mass/volume) 1.97 mg/dL 0.60-1.30 Serum or plasma urea nitrogen/creatinine mass [...] Urine pH measurement by test strip 5 5-9 Specific gravity of urine by test strip 1.010 1.016- 1.022 Urine protein assay by test strip, semi-quantitative [...] 16:15 Blood leukocytes automated count (number/volume) 7.3 10*3/uL 4.3-11.0 Blood erythrocytes automated count (number/volume) 4.12 10*6/uL 4.35-5.85 Venous blood hemoglobin measurement (mass/volume) 12.9 [...] Automated blood platelet mean volume measurement 8.6 [foz_us] 7.4-10.4 Automated blood neutrophils/100 leukocytes 65 % [...] Serum or plasma sodium measurement (moles/volume) 135 mmol/L 135-145 Serum or plasma potassium measurement (moles/volume) 4.3 mmol/L 3.6-5.0 Serum or plasma chloride measurement (moles/volume) 99 mmol/L 98-107 Carbon dioxide 28 mmol/L 21-32 Serum or plasma anion gap determination (moles/volume) 8 mmol/L 5-14 Serum or plasma urea nitrogen measurement (mass/volume) 18 mg/dL 7-18 Serum or plasma creatinine measurement (mass/volume) 1.78 mg/dL 0.60-1.30 Serum or plasma urea nitrogen/creatinine mass [...] Urine pH measurement by test strip 6 5-9 Specific gravity of urine by test strip 1.015 1.016- 1.022 Urine protein assay by test strip, semi-quantitative [...] 10:10 Blood leukocytes automated count (number/volume) 9.3 10*3/uL 4.3-11.0 Blood erythrocytes automated count (number/volume) 4.02 10*6/uL 4.35-5.85 Venous blood hemoglobin measurement (mass/volume) 12.5 [...] Automated blood platelet mean volume measurement 9.7 [foz_us] 7.4-10.4 Automated blood neutrophils/100 leukocytes 76 % [...] Serum or plasma sodium measurement (moles/volume) 138 mmol/L 135-145 Serum or plasma potassium measurement (moles/volume) 3.8 mmol/L 3.6-5.0 Serum or plasma chloride measurement (moles/volume) 100 mmol/L 98-107 Carbon dioxide 27 mmol/L 21-32 Serum or plasma anion gap determination (moles/volume) 11 mmol/L 5-14 Serum or plasma urea nitrogen measurement (mass/volume) 24 mg/dL 7-18 Serum or plasma creatinine measurement (mass/volume) 1.62 mg/dL 0.60-1.30 Serum or plasma urea nitrogen/creatinine mass [...] plasma C reactive protein measurement (mass/volume) 4.47 mg /dL 0.00-0.50 Complete blood count (CBC) with automated white blood cell (WBC) differential - 03/18/17 02:18 Blood leukocytes automated count (number/volume) 7.0 10*3/uL 4.3-11.0 Blood erythrocytes automated count (number/volume) 4.15 10*6/uL 4.35-5.85 Venous blood hemoglobin measurement (mass/volume) 13.0 g/dL 11.5-16.0 Blood hematocrit (volume fraction) 39 % 35-52 Automated erythrocyte mean corpuscular volume 94 [foz_us] 80-99 Automated erythrocyte mean corpuscular hemoglobin (mass per erythrocyte) 31 pg 25-34 Automated erythrocyte mean corpuscular hemoglobin concentration measurement ( mass/volume) 33 g/dL 32-36 Automated erythrocyte distribution width ratio 14.9 % 10.0-14.5 Automated blood platelet count (count/volume) 385 10*3/uL 130-400 Automated blood platelet mean volume measurement 9.5 [foz_us] 7.4-10.4 Automated blood neutrophils/100 leukocytes 67 % 42-75 Automated blood lymphocytes/100 leukocytes 24 % 12-44 Blood monocytes/100 leukocytes 8 % 0-12 Automated blood eosinophils/100 leukocytes 1 % 0-10 Automated blood basophils/100 leukocytes 0 % 0-10 Blood neutrophils automated count (number/volume) 4.6 10*3 1.8-7.8 Blood lymphocytes automated count (number/volume) 1.7 10*3 1.0-4.0 Blood monocytes automated count (number/volume) 0.6 10*3 0.0-1.0 Automated eosinophil count 0.0 10*3/uL 0.0-0.3 Automated blood basophil count (count/volume) 0.0 10*3/uL 0.0-0.1 Comprehensive metabolic panel - 03/18/17 02:18 Serum or plasma sodium measurement (moles/volume) 137 mmol/L 135-145 Serum or plasma potassium measurement (moles/volume) 2.8 mmol/L 3.6-5.0 Serum or plasma chloride measurement (moles/volume) 97 mmol/L 98-107 Carbon dioxide 23 mmol/L 21-32 Serum or plasma anion gap determination (moles/volume) 17 mmol/L 5-14 Serum or plasma urea nitrogen measurement (mass/volume) 19 mg/dL 7-18 Serum or plasma creatinine measurement (mass/volume) 1.46 mg/dL 0.60-1.30 Serum or plasma urea nitrogen/creatinine mass ratio 13 NRG Serum or plasma creatinine measurement with calculation of estimated glomerular filtration rate 34 NRG Serum or plasma glucose measurement (mass/volume) 119 mg/dL 70-105 Serum or plasma calcium measurement (mass/volume) 9.6 mg/dL 8.5-10.1 Serum or plasma total bilirubin measurement (mass/volume) 0.4 mg/dL 0.1-1.0 Serum or plasma alkaline phosphatase measurement (enzymatic activity/volume) 100 U/L 40-136 Serum or plasma aspartate aminotransferase measurement (enzymatic activity/ volume) 17 U/L 5-34 Serum or plasma alanine aminotransferase measurement (enzymatic activity/volume ) 10 U/L 0-55 Serum or plasma protein measurement (mass/volume) 7.7 g/dL 6.4-8.2 Serum or plasma albumin measurement (mass/volume) 3.7 g/dL 3.2-4.5 Magnesium - 03/18/17 02:18 Magnesium 2.0 mg/dL 1.8-2.4 Serum or plasma thyrotropin measurement by detection limit <=0.05 miu/l (units/ volume) - 03/18/17 02:18 Serum or plasma thyrotropin measurement by detection limit <=0.05 miu/l (units/ volume) 0.50 u[iU]/mL 0.35-4.94 Fibrin D-dimer FEU measurement in platelet poor plasma (mass/volume) - 02:18 Fibrin D-dimer FEU measurement in platelet poor plasma (mass/volume) 0.47 ug/mL 0.00-0.49 Complete urinalysis with reflex to culture - 03/18/17 04:43 Urine color determination YELLOW NRG Urine clarity determination SLIGHTLY CLOUDY NRG Urine pH measurement by test strip 6 5-9 Specific gravity of urine by test strip 1.010 1.016- 1.022 Urine protein assay by test strip, semi-quantitative NEGATIVE NEGATIVE Urine glucose detection by automated test strip NEGATIVE NEGATIVE Erythrocytes detection in urine sediment by light microscopy NEGATIVE NEGATIVE Urine ketones detection by automated test strip NEGATIVE NEGATIVE Urine nitrite detection by test strip NEGATIVE NEGATIVE Urine total bilirubin detection by test strip NEGATIVE NEGATIVE Urine urobilinogen measurement by automated test strip (mass/volume) 1 mg/dL NORMAL Urine leukocyte esterase detection by dipstick 2+ NEGATIVE Automated urine sediment erythrocyte count by microscopy (number/high power field) NONE NRG Automated urine sediment leukocyte count by microscopy (number/high power field ) [HPF] NRG Bacteria detection in urine sediment by light microscopy MODERATE NRG Squamous epithelial cells detection in urine sediment by light microscopy 5-10 NRG Crystals detection in urine sediment by light microscopy NONE NRG Casts detection in urine sediment by light microscopy PRESENT NRG Mucus detection in urine sediment by light microscopy NEGATIVE NRG Complete urinalysis with reflex to culture YES NRG Hyaline casts detection in urine sediment by light microscopy RARE NRG Bacterial urine culture - 03/18/17 04:43 Bacterial urine culture NG NRG Serum or plasma renal function panel (Na, K, Cl, CO2, BUN, Cr, glucose,Ca, phos , alb) - 03/18/17 13:58 Serum or plasma sodium measurement (moles/volume) 140 mmol/L 135-145 Serum or plasma potassium measurement (moles/volume) 3.9 mmol/L 3.6-5.0 Serum or plasma chloride measurement (moles/volume) 107 mmol/L 98-107 Carbon dioxide 22 mmol/L 21-32 Serum or plasma anion gap determination (moles/volume) 11 mmol/L 5-14 Serum or plasma urea nitrogen measurement (mass/volume) 14 mg/dL 7-18 Serum or plasma creatinine measurement (mass/volume) 1.11 mg/dL 0.60-1.30 Serum or plasma urea nitrogen/creatinine mass ratio 13 NRG Serum or plasma creatinine measurement with calculation of estimated glomerular filtration rate 47 NRG Serum or plasma glucose measurement (mass/volume) 87 mg/dL 70-105 Serum or plasma calcium measurement (mass/volume) 8.7 mg/dL 8.5-10.1 Serum or plasma albumin measurement (mass/volume) 3.0 g/dL 3.2-4.5 Serum or plasma phosphate measurement (mass/volume) 2.9 mg/dL 2.3-4.7 Complete blood count (CBC) with automated white blood cell (WBC) differential - 03/19/17 04:28 Blood leukocytes automated count (number/volume) 5.2 10*3/uL 4.3-11.0 Blood erythrocytes automated count (number/volume) 3.60 10*6/uL 4.35-5.85 Venous blood hemoglobin measurement (mass/volume) 11.0 g/dL 11.5-16.0 Blood hematocrit (volume fraction) 34 % 35-52 Automated erythrocyte mean corpuscular volume 96 [foz_us] 80-99 Automated erythrocyte mean corpuscular hemoglobin (mass per erythrocyte) 31 pg 25-34 Automated erythrocyte mean corpuscular hemoglobin concentration measurement ( mass/volume) 32 g/dL 32-36 Automated erythrocyte distribution width ratio 15.1 % 10.0-14.5 Automated blood platelet count (count/volume) 339 10*3/uL 130-400 Automated blood platelet mean volume measurement 9.5 [foz_us] 7.4-10.4 Automated blood neutrophils/100 leukocytes 68 % 42-75 Automated blood lymphocytes/100 leukocytes 21 % 12-44 Blood monocytes/100 leukocytes 9 % 0-12 Automated blood eosinophils/100 leukocytes 2 % 0-10 Automated blood basophils/100 leukocytes 0 % 0-10 Blood neutrophils automated count (number/volume) 3.6 10*3 1.8-7.8 Blood lymphocytes automated count (number/volume) 1.1 10*3 1.0-4.0 Blood monocytes automated count (number/volume) 0.5 10*3 0.0-1.0 Automated eosinophil count 0.1 10*3/uL 0.0-0.3 Automated blood basophil count (count/volume) 0.0 10*3/uL 0.0-0.1 Serum or plasma renal function panel (Na, K, Cl, CO2, BUN, Cr, glucose,Ca, phos , alb) - 03/19/17 04:28 Serum or plasma sodium measurement (moles/volume) 142 mmol/L 135-145 Serum or plasma potassium measurement (moles/volume) 4.0 mmol/L 3.6-5.0 Serum or plasma chloride measurement (moles/volume) 114 mmol/L 98-107 Carbon dioxide 20 mmol/L 21-32 Serum or plasma anion gap determination (moles/volume) 8 mmol/L 5-14 Serum or plasma urea nitrogen measurement (mass/volume) 8 mg/dL 7-18 Serum or plasma creatinine measurement (mass/volume) 0.87 mg/dL 0.60-1.30 Serum or plasma urea nitrogen/creatinine mass ratio 9 NRG Serum or plasma creatinine measurement with calculation of estimated glomerular filtration rate > NRG Serum or plasma glucose measurement (mass/volume) 73 mg/dL 70-105 Serum or plasma calcium measurement (mass/volume) 8.5 mg/dL 8.5-10.1 Serum or plasma albumin measurement (mass/volume) 2.8 g/dL 3.2-4.5 Serum or plasma phosphate measurement (mass/volume) 2.5 mg/dL 2.3-4.7 Magnesium - 03/19/17 04:28 Magnesium 1.7 mg/dL 1.8-2.4 Complete blood count (CBC) with automated white blood cell (WBC) differential - 10/30/17 21:48 Blood leukocytes automated count (number/volume) 7.2 10*3/uL 4.3-11.0 Blood erythrocytes automated count (number/volume) 3.38 10*6/uL 4.35-5.85 Venous blood hemoglobin measurement (mass/volume) 10.6 g/dL 11.5-16.0 Blood hematocrit (volume fraction) 31 % 35-52 Automated erythrocyte mean corpuscular volume 92 [foz_us] 80-99 Automated erythrocyte mean corpuscular hemoglobin (mass per erythrocyte) 31 pg 25-34 Automated erythrocyte mean corpuscular hemoglobin concentration measurement ( mass/volume) 34 g/dL 32-36 Automated erythrocyte distribution width ratio 13.3 % 10.0-14.5 Automated blood platelet count (count/volume) 289 10*3/uL 130-400 Automated blood platelet mean volume measurement 10.8 [foz_us] 7.4-10.4 Automated blood neutrophils/100 leukocytes 72 % 42-75 Automated blood lymphocytes/100 leukocytes 17 % 12-44 Blood monocytes/100 leukocytes 10 % 0-12 Automated blood eosinophils/100 leukocytes 0 % 0-10 Automated blood basophils/100 leukocytes 0 % 0-10 Blood neutrophils automated count (number/volume) 5.2 10*3 1.8-7.8 Blood lymphocytes automated count (number/volume) 1.2 10*3 1.0-4.0 Blood monocytes automated count (number/volume) 0.8 10*3 0.0-1.0 Automated eosinophil count 0.0 10*3/uL 0.0-0.3 Automated blood basophil count (count/volume) 0.0 10*3/uL 0.0-0.1 Comprehensive metabolic panel - 10/30/17 21:48 Serum or plasma sodium measurement (moles/volume) 135 mmol/L 135-145 Serum or plasma potassium measurement (moles/volume) 5.7 mmol/L 3.6-5.0 Serum or plasma chloride measurement (moles/volume) 101 mmol/L 98-107 Carbon dioxide 19 mmol/L 21-32 Serum or plasma anion gap determination (moles/volume) 15 mmol/L 5-14 Serum or plasma urea nitrogen measurement (mass/volume) 30 mg/dL 7-18 Serum or plasma creatinine measurement (mass/volume) 2.00 mg/dL 0.60-1.30 Serum or plasma urea nitrogen/creatinine mass ratio 15 NRG Serum or plasma creatinine measurement with calculation of estimated glomerular filtration rate 24 NRG Serum or plasma glucose measurement (mass/volume) 145 mg/dL 70-105 Serum or plasma calcium measurement (mass/volume) 9.0 mg/dL 8.5-10.1 Serum or plasma total bilirubin measurement (mass/volume) 0.4 mg/dL 0.1-1.0 Serum or plasma alkaline phosphatase measurement (enzymatic activity/volume) 110 U/L 40-136 Serum or plasma aspartate aminotransferase measurement (enzymatic activity/ volume) 33 U/L 5-34 Serum or plasma alanine aminotransferase measurement (enzymatic activity/volume ) 18 U/L 0-55 Serum or plasma protein measurement (mass/volume) 7.5 g/dL 6.4-8.2 Serum or plasma albumin measurement (mass/volume) 3.6 g/dL 3.2-4.5 Magnesium - 10/30/17 21:48 Magnesium 2.1 mg/dL 1.8-2.4 Complete urinalysis with reflex to culture - 10/30/17 22:25 Urine color determination YELLOW NRG Urine clarity determination CLEAR NRG Urine pH measurement by test strip 6 5-9 Specific gravity of urine by test strip 1.020 1.016- 1.022 Urine protein assay by test strip, semi-quantitative 2+ NEGATIVE Urine glucose detection by automated test strip NEGATIVE NEGATIVE Erythrocytes detection in urine sediment by light microscopy 2+ NEGATIVE Urine ketones detection by automated test strip NEGATIVE NEGATIVE Urine nitrite detection by test strip NEGATIVE NEGATIVE Urine total bilirubin detection by test strip NEGATIVE NEGATIVE Urine urobilinogen measurement by automated test strip (mass/volume) NORMAL NORMAL Urine leukocyte esterase detection by dipstick 1+ NEGATIVE Automated urine sediment erythrocyte count by microscopy (number/high power field) [HPF] NRG Automated urine sediment leukocyte count by [...] urinalysis with reflex to culture NO NRG Yeast detection in urine sediment by light microscopy FEW NRG Complete blood count (CBC) with automated white blood cell (WBC) differential - 11/10/17 22:10 Blood leukocytes automated count (number/volume) 9.1 10*3/uL 4.3-11.0 Blood erythrocytes automated count (number/volume) 3.40 10*6/uL 4.35-5.85 Venous blood hemoglobin measurement (mass/volume) 10.5 g/dL 11.5-16.0 Blood hematocrit (volume fraction) 31 % 35-52 Automated erythrocyte mean corpuscular volume 91 [foz_us] 80-99 Automated erythrocyte mean corpuscular hemoglobin (mass per erythrocyte) 31 pg 25-34 Automated erythrocyte mean corpuscular hemoglobin concentration measurement ( mass/volume) 34 g/dL 32-36 Automated erythrocyte distribution width ratio 14.0 % 10.0-14.5 Automated blood platelet count (count/volume) 509 10*3/uL 130-400 Automated blood platelet mean volume measurement 9.6 [foz_us] 7.4-10.4 Automated blood neutrophils/100 leukocytes 75 % 42-75 Automated blood lymphocytes/100 leukocytes 15 % 12-44 Blood monocytes/100 leukocytes 10 % 0-12 Automated blood eosinophils/100 leukocytes 1 % 0-10 Automated blood basophils/100 leukocytes 1 % 0-10 Blood neutrophils automated count (number/volume) 6.8 10*3 1.8-7.8 Blood lymphocytes automated count (number/volume) 1.3 10*3 1.0-4.0 Blood monocytes automated count (number/volume) 0.9 10*3 0.0-1.0 Automated eosinophil count 0.1 10*3/uL 0.0-0.3 Automated blood basophil count (count/volume) 0.1 10*3/uL 0.0-0.1 Comprehensive metabolic panel - 11/10/17 22:10 Serum or plasma sodium measurement (moles/volume) 135 mmol/L 135-145 Serum or plasma potassium measurement (moles/volume) 4.5 mmol/L 3.6-5.0 Serum or plasma chloride measurement (moles/volume) 97 mmol/L 98-107 Carbon dioxide 19 mmol/L 21-32 Serum or plasma anion gap determination (moles/volume) 19 mmol/L 5-14 Serum or plasma urea nitrogen measurement (mass/volume) 31 mg/dL 7-18 Serum or plasma creatinine measurement (mass/volume) 1.70 mg/dL 0.60-1.30 Serum or plasma urea nitrogen/creatinine mass ratio 18 NRG Serum or plasma creatinine measurement with calculation of estimated glomerular filtration rate 29 NRG Serum or plasma glucose measurement (mass/volume) 101 mg/dL 70-105 Serum or plasma calcium measurement (mass/volume) 8.8 mg/dL 8.5-10.1 Serum or plasma total bilirubin measurement (mass/volume) 0.7 mg/dL 0.1-1.0 Serum or plasma alkaline phosphatase measurement (enzymatic activity/volume) 165 U/L 40-136 Serum or plasma aspartate aminotransferase measurement (enzymatic activity/ volume) 26 U/L 5-34 Serum or plasma alanine aminotransferase measurement (enzymatic activity/volume ) 26 U/L 0-55 Serum or plasma protein measurement (mass/volume) 6.9 g/dL 6.4-8.2 Serum or plasma albumin measurement (mass/volume) 3.5 g/dL 3.2-4.5 Magnesium - 11/10/17 22:10 Magnesium 2.2 mg/dL 1.8-2.4 Serum or plasma troponin i.cardiac measurement (mass/volume) - 11/10/17 22:10 Serum or plasma troponin i.cardiac measurement (mass/volume) < ng/ mL <0.30 Serum or plasma lithium measurement (moles/volume) - 11/10/17 22:10 BNP level 9254.7 pg/mL <100.0 Encounters ACCT No. Visit Date/Time Discharge Status Pt. Type Provider Facility Loc./Unit Complaint [id number] 10/30/2017 21:01:00 10/30/2017 23:39:00 DIS Emergency TITI LIU [facility] ER DEHYDRATION [id number] 03/18/2017 07:17:00 03/19/2017 11:07:00 DIS Outpatient MORAIMA PETERSON, MADDISON Carrera [facility] 4TH HYPOKALEMIA, WEAKNESS, NOCTERNAL HYPOXIA [id number] 02/05/2017 09:41:00 02/05/2017 12:36:00 DIS Emergency BI SERNA MD [facility] ER LEFT GROIN PAIN [id number] 01/30/2017 14:30:00 01/30/2017 14:59:00 DIS Emergency LOUISE REES SAMPLE CUTTER [facility] ER PAINFUL RASH [id number] 01/19/2017 14:37:00 01/19/2017 16:52:00 DIS Emergency KAMINI JONES MD [facility] ER RASH [id number] 01/08/2017 22:34:00 01/09/2017 01:43:00 DIS Emergency MARIE PETERSON, RONY Doran [facility] ER DIFFICULTY URINATING/ LOW BP [id number] 01/07/2017 13:55:00 01/07/2017 15:56:00 DIS Emergency LOUISE REES APRN [facility] ER WEAKNESS/DIZZINESS [id number] 09/06/2013 09:05:00 09/06/2013 12:12:00 DIS Emergency BI SERNA MD [facility] ER ACUTE EXACERBATION OF CHF HYOIXIA [id number] 07/14/2013 18:02:00 07/14/2013 19:16:00 DIS Emergency BI SERNA MD [facility] ER WEAKNESS [id number] 06/20/2013 08:50:00 06/20/2013 23:59:59 CLS Outpatient QUENTIN ORTIZ MD [facility] RAD ABD PAIN [id number] 11/10/2017 22:32:00 Document Registration [id number] 08/06/2012 23:20:00 Document Registration [id number] 05/16/2012 02:02:00 Document Registration [id number] 09/01/2011 01:41:00 Document Registration
[2017-11-11] MEDS ORDERED: KCL 20 MEQ TAB (K-DUR) PO ONE (03:00)
[2017-11-11 04:48] LABS: BASOPHILS % (AUTO) 0 % (0-10); EOSINOPHILS % (AUTO) 0 % (0-10); HEMATOCRIT 31 % (35-52); HEMOGLOBIN 10.4 G/DL (11.5-16.0); LYMPHOCYTES % (AUTO) 13 % (12-44); MEAN CORPUSCULAR HEMOGLOBIN 31 PG (25-34); MEAN CORPUSCULAR HGB CONC 33 G/DL (32-36); MEAN CORPUSCULAR VOLUME 92 FL (80-99); MEAN PLATELET VOLUME 9.5 FL (7.4-10.4); MONOCYTES # (AUTO) 0.6 X 10^3 (0.0-1.0); MONOCYTES % (AUTO) 8 % (0-12); NEUTROPHILS # (AUTO) 5.9 X 10^3 (1.8-7.8); NEUTROPHILS % (AUTO) 78 % (42-75); PLATELET COUNT 470 10^3/uL (130-400); RED BLOOD COUNT 3.41 10^6/uL (4.35-5.85); RED CELL DISTRIBUTION WIDTH 14.1 % (10.0-14.5); WHITE BLOOD COUNT 7.5 10^3/uL (4.3-11.0)
[2017-11-11 05:24] LABS: CALCIUM 8.7 MG/DL (8.5-10.1); CREATININE SERUM 1.62 MG/DL (0.60-1.30); MAGNESIUM 2.2 MG/DL (1.8-2.4); PHOSPHORUS 3.6 MG/DL (2.3-4.7); POTASSIUM 3.6 MMOL/L (3.6-5.0)
--- NOTE | 2017-11-11 07:12 | Diagnostic Imaging Report ---
INDICATION: Weakness and shortness of air. TECHNIQUE: Two view chest 11:03 PM CORRELATION STUDY: 03/18/2017 FINDINGS: Heart size increased fairly considerably since prior study. There is some vascular congestion. Suggestion of some fullness of the hilar structures. Lung henry with chronic type changes with prominent interstitial markings. Development of bilateral pleural effusions. Accentuated thoracic kyphotic curvature. Degenerative changes of the thoracic spine. Suggestion of slight offset about the superior lumbar spine with leftward curvature present. IMPRESSION: 1. Development of rather pronounced cardiac enlargement. Vascular congestion along with pleural effusions likely features of congestive heart failure. Underlying cardiomyopathy would be difficult to exclude. Dictated by: Dictated on workstation # [id number]
[2017-11-11] MEDS ORDERED: INFLUENZA TRIvalent 2017-2018 0.5 ML/45 MCG SYR IM ONE (07:30)
--- NOTE | 2017-11-11 10:37 | Diagnostic Imaging Report ---
INDICATION: Hypotension, weakness, and shortness of breath. Comparison is made with prior examination from 11/10/2017. FINDINGS: Cardiomegaly. There is some mild venous congestion. There are small bilateral pleural effusions and some patchy bibasilar infiltrates. IMPRESSION: Cardiomegaly and venous congestion. Patchy bibasilar infiltrates and small bilateral pleural effusions. Dictated by: Dictated on workstation # [id number]
[2017-11-11] MEDS ORDERED: FURO-124 PO (12:18)
--- NOTE | 2017-11-11 12:19 | Short Stay Summary-Hospitalist ---
HPI History of Present Illness: HPI/Chief Complaint Pt is an 82yoCF with a PMH of CHF and COPD who presented to the ER yesterday with CC of SOB and ankle swelling. She reports that she was seen in the Er on 10/30 and her lasix was changed from 20mg BID to 40mg daily and since then she has been gaining weight and having increased ankle swelling. She also had some SOB. She saw her primary care doctor who told her to double her lasix for her swelling but she continued to have worsening edema and SOB prompting her to seek evaluation in the ER. She was found to be in heart failure clinically with labs corroborating showing a BNP of >9000 and CXR with pulmonary edema. She was admitted to the ICU for hypotension. This morning she reports she is doing better and her swelling is nearly resolved. 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 I discussed the indication for further care from cardiology standpoint but she declined. She iltimately said she would not change her medication regimen unless it came from Dr Gant. Source: patient Exam Limitations: no limitations Date Seen 11/11/17 Time Seen by Provider: 09:00 Attending Physician Dexter Mercado MD PCP Kevin Huynh DO Referring Physician KORINA LEDESMA MD Date of Admission Nov 10, 2017 at 11:35 pm Home Medications & Allergies Home Medications Reviewed patient Home Medication Reconciliation Form Allergies Allergies Coded Allergies hydrochlorothiazide (Verified Allergy, Intermediate, RASH, 03/18/17) Sulfa (Sulfonamide Antibiotics) (Verified Allergy, Unknown, 03/18/17) lactose (Verified Allergy, Unknown, 11/11/17) levofloxacin (Verified Adverse Reaction, Intermediate, SOA, 03/18/17) Past Apptryy-Vskkkr-Yrcpvv Hx Patient Social History Alcohol Use: Denies Use Recreational Drug Use: No Smoking Status: Current Everyday Smoker Type Used: Cigarettes 2nd Hand Smoke Exposure: No Physical Abuse Screen: No Sexual Abuse: No Recent Foreign Travel: No Contact w/other who traveled: No Recent Hopitalizations: No Recent Infectious Disease Expo: No Immunizations Up To Date Tetanus Booster (TDap): Less than 5yrs Date of Pneumonia Vaccine: Oct 22, 2016 Seasonal Allergies Seasonal Allergies: No Surgeries Yes (mastectomy left) Respiratory Yes Cardiovascular Yes (stress test Nov 2011 in [place], denies cardiac issues, heart cath neg) Neurological No Reproductive System Hx Reproductive Disorders: Yes Sexually Transmitted Disease: No Genitourinary Yes Renal Failure Gastrointestinal Yes Diverticulosis Musculoskeletal Yes Osteoporosis, Arthritis Endocrine History of Endocrine Disorders: No HEENT History of HEENT Disorders: Yes ("HOLE IN EARDRUMS" REPAIRED, CATARACTS REMOVED ) HEENT Disorders: Cataract Loss of Vision: Denies Hearing Impairment: Bilateral Hearing Aide Cancer Yes (Left mastectomy) Breast Type of Treatment: Surgical Intervention Psychosocial History of Psychiatric Problem: No Integumentary History of Skin or Integumenta: Yes (SHINGLES 01/05) Blood Transfusions History of Blood Disorders: No Family Medical History Significant Family History: No Pertinent Family Hx Family Hx: Cardiovascular disease 19 FATHER G8 BROTHER Diabetes mellitus G8 SISTER Review of Systems Constitutional: No diaphoresis, No fever EENTM: No blurred vision, No double vision Respiratory: No cough, dyspnea on exertion, short of breath Cardiovascular: No chest pain, edema, No palpitations Genitourinary: No dysuria, No frequency Musculoskeletal: no symptoms reported Skin: no symptoms reported Psychiatric/Neurological: No Symptoms Reported Physical Exam Physical Exam Vital Signs Vital Sign - Last 12Hours 11/10/17 22:07 Temp 98.2 Pulse 98 Resp 20 B/P (MAP) 91/72 (78) Pulse Ox 96 O2 Delivery Room Air Capillary Refill : Less Than 3 Seconds General Appearance: No Apparent Distress, Thin Neck: No JVD Respiratory: Lungs Clear, No Accessory Muscle Use, No Respiratory Distress Cardiovascular: Regular Rate, Rhythm, No Murmur Gastrointestinal: Normal Bowel Sounds, Non Tender, Soft Extremity: No Calf Tenderness, Pedal Edema Neurologic/Psychiatric: Alert, Oriented x3 Results Results/Procedures Lab Short Stay Diagnosis Discharge Diagnosis-Short Stay Admission Diagnosis acutely decompensated heart failure Final Discharge Diagnosis acutely decompensated heart failure Conclusion Plan see problem Diagnosis/Problems Diagnosis/Problems (1) acute exacerbation of congestive heart failure Status: Acute Assessment & Plan: Lasix 60mg was given in ER with improvement of symptoms Pt decided to leave AMA to follow up with her Cardiology in [place] Stressed the importance of being medically optimized prior to discharge and that given persistent hypotension she was not optimized She also refused cardiology consult Signed AMA paperwork prior to discharge Advised her to call her cardiology tomorrow when they open to get soonest appointment (Preferably Sunday or Sunday) and to continue her medications Unable to resume TJ or BB due to hypotension Clinical Quality Measures DVT/VTE Risk/Contraindication: Risk Factor Score Per Nursin RFS Level Per Nursing on Admit: 4+=Very High DEXTER MERCADO MD Nov 11, 2017 12:19
--- NOTE | 2017-11-12 10:13 | Physician Query Clarification ---
PQ-CHF Specificity The medical record reflects the following clinical scenario: History/Risk Factors: Acute decompensated CHF Clinical Findings: BNP 9254.7 Treatment: Lasix IV Question: Can you further specify the acuity &/or type of CHF per the clinical indicators above? Please document a response below PHYSICIAN RESPONSE Acuity: Acute Type: CHF cannot be further specified Other, clinical findings Pt did not stay for echo unsure if systolic or diastolic heart failure. In responding to this query, please exercise your independent professional judgment. The purpose of this communication is to more accurately reflect the complexity of your patients condition. The fact that a question is asked does not imply that any particular answer is desired or expected. Thank you for your timely response to this clarification. Requestors name: [ ] Phone # [ ] THIS PHYSICIAN QUERY FORM IS A PERMANENT PART OF THE MEDICAL RECORD POLINA CLEMONS Nov 12, 2017 10:13 DEXTER JOHNSON MD Nov 12, 2017 16:54
== END 2017-11-11 12:30 | disposition left against medical advice (07) | DRG 293 ==
LOC: EDUNIT# 21:47 → ER 21:49 → ICU 23:35
PROVIDERS: ADMIT Family Medicine; ATTEND Family Medicine
DX: I50.9 Heart failure, unspecified (principal); I95.9 Hypotension, unspecified; J44.9 Chronic obstructive pulmonary disease, unspecified; I35.1 Nonrheumatic aortic (valve) insufficiency; D64.9 Anemia, unspecified; F17.210 Nicotine dependence, cigarettes, uncomplicated; M81.0 Age-related osteoporosis without current pathological fracture; M19.91 Primary osteoarthritis, unspecified site; Z66 Do not resuscitate; Z53.21 Procedure and treatment not carried out due to patient leaving prior to being seen by health care provider
CPT/HCPCS: 36415; 71045; 71046; 80048; 80053; 83735; 83880; 84100; 84484; 85025; 87081; 93005; 93041; 94640; 96374

== ENCOUNTER 2017-11-25 21:11 | Observation (INO) | payer MEDICARE, MEDICAID ==
[~2017-11-25] VITALS: Ht 152.4 cm; Wt 31.8 kg
--- OUTSIDE RECORDS SUMMARY | 2017-11-25 21:22 | XMS REPORT | Continuity of Care Document ---
Author Author [facility] Organization [facility] Address Unknown Phone Unavailable Allergies Active Description Code Type Severity Reaction Onset Reported/Identified Relationship to Patient Clinical Status Yes hydrochlorothiazide [id number] Drug Allergy Moderate RASH 03/18/2017 Yes levofloxacin [id number] Drug Allergy Moderate SOA 03/18/2017 Yes milk [id number] Drug Allergy Mild upset stomach 03/18/2017 Yes Sulfa (Sulfonamide Antibiotics) [id number] Drug Allergy Unknown N/A 2016 Yes lactose [id number] Drug Allergy Unknown N/A 11/11/2017 Yes milk [id number] Drug Allergy Unknown N/A 11/11/2017 Medications There is no data. Problems Date [...] URETERAL DIS NOS 07/14/2013 KAREEM PETERSON, BI T Ot 719.7 DIFFICULTY IN WALKING 07/14/2013 KAREEM PETERSON, BI Gandhi Ot 783.0 ANOREXIA 09/06/2013 KAREEM PETERSON, BI Gandhi Ot 428.0 CONGESTIVE HEART FAILURE NOS 09/06/2013 KAREEM PETERSON, BI Gandhi Ot 780.79 OTH MALAISE FATIGUE 09/06/2013 KAREEM PETERSON, BI Gandhi Ot 799.02 HYPOXEMIA 01/07/2017 ANGEL PETERSON, QUENTIN S Ot 562.10 DIVERTICULOSIS COLON (W/O MENT OF HEMORR 01/07/2017 ANGEL PETERSON, QUENTIN S Ot 592.0 CALCULUS OF KIDNEY 01/07/2017 ANGEL PETERSON, QUENTIN Gerardo Ot 789.00 ABDOMINAL PAIN, UNSPECIFIED SITE 01/07/2017 LOUISE REES APRN Ot B02.9 ZOSTER WITHOUT COMPLICATIONS 01/07/2017 LOUISE REES APRN Ot J44.9 CHRONIC OBSTRUCTIVE PULMONARY DISEASE, U 01/07/2017 LOUISE RESE APRN Ot R21 RASH AND OTHER NONSPECIFIC SKIN ERUPTION 01/07/2017 LOUISE REES VEGETABLE II FARMWORKER Ot R42 DIZZINESS AND GIDDINESS 01/07/2017 LOUISE REES APRN Ot R53.1 WEAKNESS 01/07/2017 LOUISE REES APRN Ot Z79.82 SOCK LINING STITCHER (CURRENT) USE OF ASPIRIN 01/07/2017 LOUISE REES APRN Ot Z79.899 OTHER RESIDENTIAL (CURRENT) DRUG THERAPY 01/09/2017 RONY SALAZAR MD Ot B02.9 ZOSTER WITHOUT COMPLICATIONS 01/09/2017 RONY SALAZAR MD Ot E86.0 DEHYDRATION 01/09/2017 RONY SALAZAR MD Ot F17.210 NICOTINE DEPENDENCE, CIGARETTES, UNCOMPL 01/09/2017 RONY SALAZAR MD, Ot J44.9 CHRONIC OBSTRUCTIVE PULMONARY DISEASE, U 01/09/2017 RONY SALAZAR MD Ot R30.0 DYSURIA 01/09/2017 RONY SALAZAR MD Ot Z79.82 SOCK LINING STITCHER (CURRENT) USE OF ASPIRIN 01/09/2017 RONY SALAZAR MD Ot Z79.899 OTHER SOCK LINING STITCHER (CURRENT) DRUG THERAPY 01/09/2017 REES, PETER J VEGETABLE II FARMWORKER Ot B02.9 ZOSTER WITHOUT COMPLICATIONS 01/09/2017 LOUISE REES APRN Ot J44.9 CHRONIC OBSTRUCTIVE PULMONARY DISEASE, U 01/09/2017 LOUISE REES VEGETABLE II FARMWORKER Ot R21 RASH AND OTHER NONSPECIFIC SKIN ERUPTION 01/09/2017 LOUISE REES VEGETABLE II FARMWORKER Ot R42 DIZZINESS AND GIDDINESS 01/09/2017 LOUISE REES VEGETABLE II FARMWORKER Ot R53.1 WEAKNESS 01/09/2017 LOUISE REES VEGETABLE II FARMWORKER Ot Z79.82 RESIDENTIAL (CURRENT) USE OF ASPIRIN 01/09/2017 LOUISE REES VEGETABLE II FARMWORKER Ot Z79.899 OTHER SOCK LINING STITCHER (CURRENT) DRUG THERAPY 01/13/2017 LOUISE REES VEGETABLE II FARMWORKER Ot B02.9 ZOSTER WITHOUT COMPLICATIONS 01/13/2017 LOUISE REES APRN Ot J44.9 CHRONIC OBSTRUCTIVE PULMONARY DISEASE, U 01/13/2017 LOUISE REES APRN Ot R21 RASH AND OTHER NONSPECIFIC SKIN ERUPTION 01/13/2017 LOUISE REES APRN Ot R42 DIZZINESS AND GIDDINESS 01/13/2017 LOUISE REES APRN Ot R53.1 WEAKNESS 01/13/2017 LOUISE REES VEGETABLE II FARMWORKER Ot Z79.82 SOCK LINING STITCHER (CURRENT) USE OF ASPIRIN 01/13/2017 LOUISE REES APRN Ot Z79.899 OTHER RESIDENTIAL (CURRENT) DRUG THERAPY 01/19/2017 KAMINI JONES MD Ot B02.9 ZOSTER WITHOUT COMPLICATIONS 01/19/2017 KAMINI JONES MD Ot Z79.82 SOCK LINING STITCHER (CURRENT) USE OF ASPIRIN 01/19/2017 KAMINI JONES MD Ot Z79.899 OTHER SOCK LINING STITCHER (CURRENT) DRUG THERAPY 01/19/2017 KAMINI JONES MD Ot Z85.3 PERSONAL HISTORY OF MALIGNANT NEOPLASM O 01/19/2017 KAMINI JONES MD Ot Z90.12 ACQUIRED ABSENCE OF LEFT BREAST AND NIPP 01/30/2017 LOUISE REES VEGETABLE II FARMWORKER Ot B02.29 OTHER POSTHERPETIC NERVOUS SYSTEM INVOLV 01/30/2017 LOUISE REES VEGETABLE II FARMWORKER Ot J44.9 CHRONIC OBSTRUCTIVE PULMONARY DISEASE, U 01/30/2017 LOUISE REES VEGETABLE II FARMWORKER Ot Z79.82 RESIDENTIAL (CURRENT) USE OF ASPIRIN 01/30/2017 LOUISE REES VEGETABLE II FARMWORKER Ot Z79.899 OTHER SOCK LINING STITCHER (CURRENT) DRUG THERAPY 01/31/2017 LOUISE REES VEGETABLE II FARMWORKER Ot B02.29 OTHER POSTHERPETIC NERVOUS SYSTEM INVOLV 01/31/2017 LOUISE REES VEGETABLE II FARMWORKER Ot J44.9 CHRONIC OBSTRUCTIVE PULMONARY DISEASE, U 01/31/2017 LOUISE REES VEGETABLE II FARMWORKER Ot Z79.82 RESIDENTIAL (CURRENT) USE OF ASPIRIN 01/31/2017 LOUISE REES VEGETABLE II FARMWORKER Ot Z79.899 OTHER SOCK LINING STITCHER (CURRENT) DRUG THERAPY 02/05/2017 BI SERNA MD Ot B02.9 ZOSTER WITHOUT COMPLICATIONS 02/05/2017 BI SERNA MD Ot F17.210 NICOTINE DEPENDENCE, CIGARETTES, UNCOMPL 02/05/2017 BI SERNA MD Ot J44.9 CHRONIC OBSTRUCTIVE PULMONARY DISEASE, U 02/05/2017 BI SERNA MD Ot K57.30 DVRTCLOS OF LG INT W/O PERFORATION OR AB 02/05/2017 BI SERNA MD Ot K80.20 CALCULUS OF GALLBLADDER W/O CHOLECYSTITI 02/05/2017 BI SERNA MD Ot R10.32 LEFT LOWER QUADRANT PAIN 02/05/2017 BI SERNA MD Ot Z79.82 RESIDENTIAL (CURRENT) USE OF ASPIRIN 02/05/2017 BI SERNA MD T Ot Z79.899 OTHER RESIDENTIAL (CURRENT) DRUG THERAPY 02/06/2017 BI SERNA MD Ot B02.9 ZOSTER WITHOUT COMPLICATIONS 02/06/2017 BI SERNA MD Ot F17.210 NICOTINE DEPENDENCE, CIGARETTES, UNCOMPL 02/06/2017 BI SERNA MD Ot J44.9 CHRONIC OBSTRUCTIVE PULMONARY DISEASE, U 02/06/2017 BI SERNA MD T Ot K57.30 DVRTCLOS OF LG INT W/O PERFORATION OR AB 02/06/2017 BI SERNA MD Ot K80.20 CALCULUS OF GALLBLADDER W/O CHOLECYSTITI 02/06/2017 IB SERNA MD Ot R10.32 LEFT LOWER QUADRANT PAIN 02/06/2017 IB SERNA MD, Ot Z79.82 SOCK LINING STITCHER (CURRENT) USE OF ASPIRIN 02/06/2017 BI SERNA MD Ot Z79.899 OTHER SOCK LINING STITCHER (CURRENT) DRUG THERAPY 02/15/2017 BI SERNA MD Ot B02.9 ZOSTER WITHOUT COMPLICATIONS 02/15/2017 BI SERNA MD, Ot F17.210 NICOTINE DEPENDENCE, CIGARETTES, UNCOMPL 02/15/2017 BI SERNA MD, Ot J44.9 CHRONIC OBSTRUCTIVE PULMONARY DISEASE, U 02/15/2017 BI SERNA MD, Ot K57.30 DVRTCLOS OF LG INT W/O PERFORATION OR AB 02/15/2017 BI SERNA MD, Ot K80.20 CALCULUS OF GALLBLADDER W/O CHOLECYSTITI 02/15/2017 BI SERNA MD Ot R10.32 LEFT LOWER QUADRANT PAIN 02/15/2017 BI SERNA MD, Ot Z79.82 SOCK LINING STITCHER (CURRENT) USE OF ASPIRIN 02/15/2017 BI SERNA MD, Ot Z79.899 OTHER SOCK LINING STITCHER (CURRENT) DRUG THERAPY 03/18/2017 ANGEL PETERSON, QUENTIN Gerardo Ot 562.10 DIVERTICULOSIS COLON (W/O MENT OF HEMORR 03/18/2017 QUENTIN ORTIZ MD Ot 592.0 CALCULUS OF KIDNEY 03/18/2017 QUENTIN ORTIZ MD Ot 789.00 ABDOMINAL PAIN, UNSPECIFIED SITE 03/19/2017 MADDISON VALERA MD Ot E83.42 HYPOMAGNESEMIA 03/19/2017 MADDISON VALERA MD Ot E86.1 HYPOVOLEMIA 03/19/2017 MADDISON VALERA MD Ot E87.6 HYPOKALEMIA 03/19/2017 MADDISON VALERA MD, Ot F17.210 NICOTINE DEPENDENCE, CIGARETTES, UNCOMPL 03/19/2017 MADDISON VALERA MD Ot I95.9 HYPOTENSION, UNSPECIFIED 03/19/2017 MADDISON VALERA MD, Ot J44.9 CHRONIC OBSTRUCTIVE PULMONARY DISEASE, U 03/19/2017 MADDISON VALERA MD Ot M19.90 UNSPECIFIED OSTEOARTHRITIS, UNSPECIFIED 03/19/2017 MORAIMA MD, MADDISON C Ot N18.9 CHRONIC KIDNEY DISEASE, UNSPECIFIED 03/19/2017 MORAIMA PETERSON, MADDISON Carrera Ot N39.0 URINARY TRACT INFECTION, SITE NOT SPECIF 03/19/2017 MORAIMA PETERSON, MADDISON Carrera Ot R09.02 HYPOXEMIA 03/19/2017 MADDISON VALERA MD Ot R53.1 WEAKNESS 03/19/2017 MORAIMA PETERSON, MADDISON Carrera Ot Z85.3 PERSONAL HISTORY OF MALIGNANT NEOPLASM O 10/30/2017 NOE, TITI MINE CAPTAIN Ot E86.0 DEHYDRATION 10/30/2017 NOE, TITI MINE CAPTAIN Ot E87.5 HYPERKALEMIA 10/30/2017 NOE, TITI MINE CAPTAIN Ot F17.210 NICOTINE DEPENDENCE, CIGARETTES, UNCOMPL 10/30/2017 NOE, TITI MINE CAPTAIN Ot J44.9 CHRONIC OBSTRUCTIVE PULMONARY DISEASE, U 10/30/2017 NOE, TITI MINE CAPTAIN Ot M81.0 AGE-RELATED OSTEOPOROSIS W/O CURRENT PAT 10/30/2017 NOE, TITI MINE CAPTAIN Ot R53.1 WEAKNESS 10/30/2017 NOE, TITI MINE CAPTAIN Ot Z79.82 RESIDENTIAL (CURRENT) USE OF ASPIRIN 10/30/2017 NOE, TITI MINE CAPTAIN Ot Z82.49 FAMILY HX OF ISCHEM HEART DIS AND OTH DI 10/30/2017 NOE, TITI MINE CAPTAIN Ot Z87.19 PERSONAL HISTORY OF OTHER DISEASES OF TH 10/30/2017 NOE TITI MINE CAPTAIN Ot Z90.12 ACQUIRED ABSENCE OF LEFT BREAST AND NIPP 11/01/2017 NOE, TITI MINE CAPTAIN Ot E86.0 DEHYDRATION 11/01/2017 NOE, TITI MINE CAPTAIN Ot E87.5 HYPERKALEMIA 11/01/2017 NOE, TITI MINE CAPTAIN Ot F17.210 NICOTINE DEPENDENCE, CIGARETTES, UNCOMPL 11/01/2017 NOE, TITI MINE CAPTAIN Ot J44.9 CHRONIC OBSTRUCTIVE PULMONARY DISEASE, U 11/01/2017 NOE, TITI MINE CAPTAIN Ot M81.0 AGE-RELATED OSTEOPOROSIS W/O CURRENT PAT 11/01/2017 NOE, TITI MINE CAPTAIN Ot R53.1 WEAKNESS 11/01/2017 NOE, TITI MINE CAPTAIN Ot Z79.82 SOCK LINING STITCHER (CURRENT) USE OF ASPIRIN 11/01/2017 NOE, TITI MINE CAPTAIN Ot Z82.49 FAMILY HX OF ISCHEM HEART DIS AND OTH DI 11/01/2017 NOE, TITI MINE CAPTAIN Ot Z87.19 PERSONAL HISTORY OF OTHER DISEASES OF TH 11/01/2017 TITI LIU MICKEY Ot Z90.12 ACQUIRED ABSENCE OF LEFT BREAST AND NIPP 11/11/2017 DEXTER JOHNSON MD, Ot D64.9 ANEMIA, UNSPECIFIED 11/11/2017 DEXTER JOHNSON MD, Ot F17.210 NICOTINE DEPENDENCE, CIGARETTES, UNCOMPL 11/11/2017 DEXTER JOHNSON MD, Ot I35.1 NONRHEUMATIC AORTIC (VALVE) INSUFFICIENC 11/11/2017 DEXTER JOHNSON MD, Ot I50.9 HEART FAILURE, UNSPECIFIED 11/11/2017 DEXTER JOHNSON MD, Ot I95.9 HYPOTENSION, UNSPECIFIED 11/11/2017 DEXTER JOHNSON MD, Ot J44.9 CHRONIC OBSTRUCTIVE PULMONARY DISEASE, U 11/11/2017 DEXTER JOHNSON MD, Ot M19.91 PRIMARY OSTEOARTHRITIS, UNSPECIFIED SITE 11/11/2017 DEXTER JOHNSON MD, Ot M81.0 AGE-RELATED OSTEOPOROSIS W/O CURRENT PAT 11/11/2017 DEXTER JOHNSON MD, Ot Z53.21 PROC/TRTMT NOT CRD OUT D/T PT LV BEF SEE 11/11/2017 DEXTER JOHNSON MD, Ot Z66 DO NOT RESUSCITATE Procedures There is no data. Results Test [...] 11/10/17 22:10 BNP level 9254.7 pg/mL <100.0 Complete blood count (CBC) with automated white blood cell (WBC) differential - 11/11/17 03:47 Blood leukocytes automated count (number/volume) 7.5 10*3/uL 4.3-11.0 Blood erythrocytes automated count (number/volume) 3.41 10*6/uL 4.35-5.85 Venous blood hemoglobin measurement (mass/volume) 10.4 g/dL 11.5-16.0 Blood hematocrit (volume fraction) 31 % 35-52 Automated erythrocyte mean corpuscular volume 92 [foz_us] 80-99 Automated erythrocyte mean corpuscular hemoglobin (mass per erythrocyte) 31 pg 25-34 Automated erythrocyte mean corpuscular hemoglobin concentration measurement ( mass/volume) 33 g/dL 32-36 Automated erythrocyte distribution width ratio 14.1 % 10.0-14.5 Automated blood platelet count (count/volume) 470 10*3/uL 130-400 Automated blood platelet mean volume measurement 9.5 [foz_us] 7.4-10.4 Automated blood neutrophils/100 leukocytes 78 % 42-75 Automated blood lymphocytes/100 leukocytes 13 % 12-44 Blood monocytes/100 leukocytes 8 % 0-12 Automated blood eosinophils/100 leukocytes 0 % 0-10 Automated blood basophils/100 leukocytes 0 % 0-10 Blood neutrophils automated count (number/volume) 5.9 10*3 1.8-7.8 Blood lymphocytes automated count (number/volume) 1.0 10*3 1.0-4.0 Blood monocytes automated count (number/volume) 0.6 10*3 0.0-1.0 Automated eosinophil count 0.0 10*3/uL 0.0-0.3 Automated blood basophil count (count/volume) 0.0 10*3/uL 0.0-0.1 Whole blood basic metabolic panel - 11/11/17 03:47 Serum or plasma sodium measurement (moles/volume) 138 mmol/L 135-145 Serum or plasma potassium measurement (moles/volume) 3.6 mmol/L 3.6-5.0 Serum or plasma chloride measurement (moles/volume) 99 mmol/L 98-107 Carbon dioxide 21 mmol/L 21-32 Serum or plasma anion gap determination (moles/volume) 18 mmol/L 5-14 Serum or plasma urea nitrogen measurement (mass/volume) 29 mg/dL 7-18 Serum or plasma creatinine measurement (mass/volume) 1.62 mg/dL 0.60-1.30 Serum or plasma urea nitrogen/creatinine mass ratio 18 NRG Serum or plasma creatinine measurement with calculation of estimated glomerular filtration rate 30 NRG Serum or plasma glucose measurement (mass/volume) 129 mg/dL 70-105 Serum or plasma calcium measurement (mass/volume) 8.7 mg/dL 8.5-10.1 Serum or plasma phosphate measurement (mass/volume) - 11/11/17 03:47 Serum or plasma phosphate measurement (mass/volume) 3.6 mg/dL 2.3-4.7 Magnesium - 11/11/17 03:47 Magnesium 2.2 mg/dL 1.8-2.4 Methicillin resistant Staphylococcus aureus (MRSA) screening culture - 04:30 Methicillin resistant Staphylococcus aureus (MRSA) screening culture NEG NRG Encounters ACCT No. Visit Date/Time Discharge Status Pt. Type Provider Facility Loc./Unit Complaint [id number] 11/10/2017 23:35:00 11/11/2017 12:30:00 DIS Inpatient ALEX PETERSON, DEXTER Cortez [facility] ICU ACUTE DECOMPENSATED HF HYPOTENSION [id number] 10/30/2017 21:01:00 10/30/2017 23:39:00 DIS Emergency TITI LIU [facility] ER DEHYDRATION [id number] 03/18/2017 07:17:00 03/19/2017 11:07:00 DIS Outpatient MORAIMA PETERSON, MADDISON Carrera [facility] 4TH HYPOKALEMIA, WEAKNESS, NOCTERNAL HYPOXIA [id number] 02/05/2017 09:41:00 02/05/2017 12:36:00 DIS Emergency KAREEM PETERSON, BI Gandhi [facility] ER LEFT GROIN PAIN [id number] 01/30/2017 14:30:00 01/30/2017 14:59:00 DIS Emergency LOUISE REES VEGETABLE II FARMWORKER [facility] ER PAINFUL RASH [id number] 01/19/2017 14:37:00 01/19/2017 16:52:00 DIS Emergency ROBERT PETERSON, KAMINI Yañez [facility] ER RASH [id number] 01/08/2017 22:34:00 01/09/2017 01:43:00 DIS Emergency MARIE PETERSON, RONY Doran [facility] ER DIFFICULTY URINATING/ LOW BP [id number] 01/07/2017 13:55:00 01/07/2017 15:56:00 DIS Emergency LOUISE REES VEGETABLE II FARMWORKER [facility] ER WEAKNESS/DIZZINESS [id number] 09/06/2013 09:05:00 09/06/2013 12:12:00 DIS Emergency KAREEM PETERSON, BI Gandhi [facility] ER ACUTE EXACERBATION OF CHF HYOIXIA [id number] 07/14/2013 18:02:00 07/14/2013 19:16:00 DIS Emergency KAREEM PETERSON, BI Gandhi [facility] ER WEAKNESS [id number] 06/20/2013 08:50:00 06/20/2013 23:59:59 CLS Outpatient QUENTIN ORTIZ MD [facility] RAD ABD PAIN [id number] 11/25/2017 21:15:00 ACT Emergency RONY SALAZAR MD [facility] ER SOA [id number] 08/06/2012 23:20:00 Document Registration [id number] 05/16/2012 02:02:00 Document Registration [id number] 09/01/2011 01:41:00 Document Registration
[2017-11-25] MEDS ORDERED: ASPIRIN 81 MG CHEW (CHILDREN'S ASA) PO STA (21:24)
[2017-11-25] MEDS ORDERED: morphine INJ 10 MG/ML 1ML (SYR OR VIAL) ONE (21:30)
[2017-11-25 21:35] LABS: BASOPHILS % (AUTO) 0 % (0-10); EOSINOPHILS % (AUTO) 0 % (0-10); HEMATOCRIT 38 % (35-52); HEMOGLOBIN 11.7 G/DL (11.5-16.0); LYMPHOCYTES # (AUTO) 2.2 X 10^3 (1.0-4.0); LYMPHOCYTES % (AUTO) 18 % (12-44); MEAN CORPUSCULAR HEMOGLOBIN 29 PG (25-34); MEAN CORPUSCULAR HGB CONC 31 G/DL (32-36); MEAN CORPUSCULAR VOLUME 92 FL (80-99); MEAN PLATELET VOLUME 10.4 FL (7.4-10.4); MONOCYTES # (AUTO) 1.5 X 10^3 (0.0-1.0); MONOCYTES % (AUTO) 12 % (0-12); NEUTROPHILS # (AUTO) 8.3 X 10^3 (1.8-7.8); NEUTROPHILS % (AUTO) 69 % (42-75); PLATELET COUNT 493 10^3/uL (130-400); RED BLOOD COUNT 4.09 10^6/uL (4.35-5.85); RED CELL DISTRIBUTION WIDTH 15.5 % (10.0-14.5); WHITE BLOOD COUNT 11.9 10^3/uL (4.3-11.0)
[2017-11-25] MEDS ORDERED: LORazepam INJ 2 MG/ML (ATIVAN) VIAL ONE (21:36)
[2017-11-25] MEDS ORDERED: NS IV 500 ML 500 ML ONE (21:39)
[2017-11-25 21:53] LABS: INR 1.6 (0.8-1.4); PROTHROMBIN TIME PATIENT 18.7 SEC (12.2-14.7)
[2017-11-25 21:58] LABS: ABG OXYGEN SATURATION 99 % (94-100); ABG PCO2 33 MMHG (35-45); ABG PO2 200 MMHG (79-93); ABG TCO2 9.8 MMOL/L (21.0-31.0)
[2017-11-25 22:01] LABS: ABG PH 7.04 (7.37-7.43); ALLENS TEST YES-POS
[2017-11-25 22:02] LABS: INSPIRED O2 15 L; PATIENT TEMP 95.7; VENTILATOR NO
[2017-11-25 22:03] LABS: MAGNESIUM 3.4 MG/DL (1.8-2.4)
[2017-11-25 22:12] LABS: ALANINE AMINOTRANSFERASE 20 U/L (0-55); ALBUMIN 3.6 GM/DL (3.2-4.5); ALKALINE PHOSPHATASE 186 U/L (40-136); BILIRUBIN,TOTAL 2.2 MG/DL (0.1-1.0); BUN/CREATININE RATIO 13; CALCIUM 9.5 MG/DL (8.5-10.1); CHLORIDE 98 MMOL/L (98-107); CREATININE SERUM 2.24 MG/DL (0.60-1.30); GFR ESTIMATED 21; GLUCOSE 111 MG/DL (70-105); SODIUM 134 MMOL/L (135-145); TOTAL PROTEIN 7.7 GM/DL (6.4-8.2)
[2017-11-25] MEDS ORDERED: NS (IVPB) 250 ML ONE (22:17)
[2017-11-25] MEDS ORDERED: NOREPINEPHRINE 4 MG/4 ML (LEVOPHED) AMP IV ONE (22:18)
--- NOTE | 2017-11-25 22:28 | ED General ---
General Stated Complaint: SOA Source of Information: Family Exam Limitations: Physical Impairments History of Present Illness Date Seen by Provider: Nov 25, 2017 Time Seen by Provider: 21:15 Initial Comments Here by family with report of increasing shortness of air over the last 24 hours. Arrives in full extremis and respiratory failure. No report of vomiting. Patient was seen here about 15 days ago and found to be in acute heart failure and was admitted. Patient left AMA so she could follow up with her barn hand in [place]. Family states that she did and they did increase her Lasix. Apparently she was on generic Lasix which causes problems for her and they were finally able to get her on the name brand Lasix which was apparently working. Reportedly had blood pressures in the 70s and 80s at her barn hand's office and they thought that was maybe because she wasn't eating. She arrives in the same range with moderate swelling to her ankles and lower legs. Patient is unable to answer any significant questions. Timing/Duration: 1 Week, Getting Worse Severity: Severe Associated Systoms: Shortness of Air, Other (complaint of back pain) Allergies and Home Medications Allergies Coded Allergies: hydrochlorothiazide (Verified Allergy, Intermediate, RASH, 03/18/17) Sulfa (Sulfonamide Antibiotics) (Verified Allergy, Unknown, 03/18/17) lactose (Verified Allergy, Unknown, 11/11/17) levofloxacin (Verified Adverse Reaction, Intermediate, SOA, 03/18/17) Home Medications Aspirin 325 Mg Tablet, 325 MG PO HS, (Reported) Budesonide/Formoterol Fumarate 10.2 Gm Hfa.aer.ad, 1 PUFF IH DAILY PRN for SHORTNESS OF BREATH, (Reported) Furosemide 40 Mg Tablet, 40 MG PO DAILY for 30 Days, #30 Prescribed by: DEXTER JOHNSON on 11/11/17 1218 Magnesium Oxide 400 Mg Tablet, 400 MG PO BID, #30 Prescribed by: MADDISON VALERA on 03/19/17 1028 Meloxicam 15 Mg Tablet, 1 EACH PO DAILY PRN for PAIN-MILD, (Reported) Potassium Chloride 10 Meq Tablet.er, 2 TAB PO BID, (Reported) Tiotropium [place] 1 Inh Aerp, 1 PUFF IH DAILY, (Reported) Constitutional: see HPI Other Unable complete review of systems due to critical condition Past [id number] Hx Patient Social History Smoking Status: Current Everyday Smoker Type Used: Cigarettes 2nd Hand Smoke Exposure: No Recent Hopitalizations: No Immunizations Up To Date Tetanus Booster (TDap): Less than 5yrs Date of Pneumonia Vaccine: Oct 22, 2016 Seasonal Allergies Seasonal Allergies: No Surgeries History of Surgeries: Yes (mastectomy left) Respiratory History of Respiratory Disorde: Yes Respiratory Disorders: COPD Cardiovascular History of Cardiac Disorders: Yes (stress test Nov 2011 in [place], denies cardiac issues, heart cath neg) Neurological History of Neurological Disord: No Reproductive System Hx Reproductive Disorders: Yes Sexually Transmitted Disease: No Genitourinary History of Genitourinary Disor: Yes Genitourinary Disorders: Renal Failure Gastrointestinal History of Gastrointestinal Di: Yes Gastrointestinal Disorders: Diverticulosis Musculoskeletal History of Musculoskeletal Dis: Yes Musculoskeletal Disorders: Osteoporosis, Arthritis Endocrine History of Endocrine Disorders: No HEENT History of HEENT Disorders: Yes ("HOLE IN EARDRUMS" REPAIRED, CATARACTS REMOVED ) HEENT Disorders: Cataract Loss of Vision: Denies Hearing Impairment: Bilateral Hearing Aide Cancer History of Cancer: Yes (Left mastectomy) Cancer: Breast Type of Tx Receive: Surgical Intervention Psychosocial History of Psychiatric Problem: No Integumentary History of Skin or Integumenta: Yes (SHINGLES 01/05) Blood Transfusions History of Blood Disorders: No Family Medical History Significant Family History: No Pertinent Family Hx Other History per records as patient unable to answer due to critical condition Family Medial History: Cardiovascular disease 19 FATHER G8 BROTHER Diabetes mellitus G8 SISTER Physical Exam-Suspected Sepsis Physical Exam Vital Signs Vital Sign - Last 12Hours 11/25/17 23:37 FiO2 100 Capillary Refill : General Appearance: Cachetic, Severe Distress, Thin HEENT: PERRL/EOMI, Pharynx Normal Neck: Non Tender, Supple Respiratory: Decreased Breath Sounds, Respiratory Distress Cardiovascular: No Murmur, Tachycardia Gastrointestinal: Non Tender, Soft Back: Normal Inspection, No CVA Tenderness, No Vertebral Tenderness Extremity: Non Tender, Pedal Edema (2+ edema to the lower extremities bilaterally up to the level of the knees) Neurologic/Psychiatric: Disoriented x3, Other (complains of back pain and breathing problems initially but otherwise essentially unresponsive afterwards and not answering questions) Skin: cyanosis, cool, diaphoresis Focused Exam Evaluation Lactate Level Laboratory Tests 11/25/17 21:26: Lactic Acid Level 10.98*H Lactic Acid Level Lumen: triple Central Line Procedure: betadine prep Position: internal jugular (R) Complications: none Post Position: sutured, good blood return, position confirmed w/ CXR Progress Central line in good position Date of ETT Placement: Nov 25, 2017 Time of ETT Placement: 22:00 Intubation Method: orotracheal Tube Size: 7.5 Medications: Etomidate (20 mg), Succinylcholine (70 mg) Positive End Tide CO2: Yes Breath Sounds after Intubation: bilateral-equal Intubation Complications: no complications Post Intubation Xray: Yes Progress/Xray Impression: ET tube in good position below clavicles and above juan m Progress/Results/Core Measures Suspected Sepsis SIRS Temperature: Pulse: Respiratory Rate: Laboratory Tests 11/25/17 21:26: White Blood Count 11.9H Blood Pressure / Mean: Laboratory Tests 11/25/17 21:26: Lactic Acid Level 10.98*H Laboratory Tests 11/25/17 21:26: Creatinine 2.24H, INR Comment 1.6H, Platelet Count 493H, Total Bilirubin 2.2H Results/Orders Lab Results Laboratory Tests Test 11/25/17 21:26 11/25/17 21:46 Range/Units White Blood Count 11.9 H 4.3-11.0 10^3/uL Red Blood Count 4.09 L 4.35-5.85 10^6/uL Hemoglobin 11.7 11.5-16.0 G/DL Hematocrit 38 35-52 % Mean Corpuscular Volume 92 80-99 FL Mean Corpuscular Hemoglobin 29 25-34 PG Mean Corpuscular Hemoglobin Concent 31 L 32-36 G/DL Red Cell Distribution Width 15.5 H 10.0-14.5 % Platelet Count 493 H 130-400 10^3/uL Mean Platelet Volume 10.4 7.4-10.4 FL Neutrophils (%) (Auto) 69 42-75 % Lymphocytes (%) (Auto) 18 12-44 % Monocytes (%) (Auto) 12 0-12 % Eosinophils (%) (Auto) 0 0-10 % Basophils (%) (Auto) 0 0-10 % Neutrophils # (Auto) 8.3 H 1.8-7.8 X 10^3 Lymphocytes # (Auto) 2.2 1.0-4.0 X 10^3 Monocytes # (Auto) 1.5 H 0.0-1.0 X 10^3 Eosinophils # (Auto) 0.0 0.0-0.3 10^3/uL Basophils # (Auto) 0.0 0.0-0.1 10^3/uL Prothrombin Time 18.7 H 12.2-14.7 SEC INR Comment 1.6 H 0.8-1.4 Activated Partial Thromboplast Time 35 24-35 SEC Sodium Level 134 L 135-145 MMOL/L Potassium Level 6.5 *H 3.6-5.0 MMOL/L Chloride Level 98 98-107 MMOL/L Carbon Dioxide Level 9 *L 21-32 MMOL/L Anion Gap 27 H 5-14 MMOL/L Blood Urea Nitrogen 29 H 7-18 MG/DL Creatinine 2.24 H 0.60-1.30 MG/DL Estimat Glomerular Filtration Rate 21 BUN/Creatinine Ratio 13 Glucose Level 111 H 70-105 MG/DL Lactic Acid Level 10.98 *H 0.50-2.00 MMOL/L Calcium Level 9.5 8.5-10.1 MG/DL Magnesium Level 3.4 H 1.8-2.4 MG/DL Total Bilirubin 2.2 H 0.1-1.0 MG/DL Aspartate Amino Transf (AST/SGOT) 27 5-34 U/L Alanine Aminotransferase (ALT/SGPT) 20 0-55 U/L Alkaline Phosphatase 186 H 40-136 U/L Myoglobin 1658.8 H 10.0-92.0 NG/ML Troponin I < 0.30 <0.30 NG/ML B-Type Natriuretic Peptide 69101.3 H <100.0 PG/ML Total Protein 7.7 6.4-8.2 GM/DL Albumin 3.6 3.2-4.5 GM/DL Blood Gas Puncture Site R RAD Blood Gas Patient Temperature 95.7 Arterial Blood pH 7.04 *L 7.37-7.43 Arterial Blood Partial Pressure CO2 33 L 35-45 MMHG Arterial Blood Partial Pressure O2 200 H 79-93 MMHG Arterial Blood HCO3 9 *L 23-27 MMOL/L Arterial Blood Total CO2 9.8 L 21.0-31.0 MMOL/L Arterial Blood Oxygen Saturation 99 94-100 % Arterial Blood Base Excess -20.0 L -2.5-2.5 MMOL/L Vincent Test YES-POS Blood Gas Ventilator Setting NO Blood Gas Inspired Oxygen 15 L My Orders Orders - RONY SALAZAR MD Cbc With Automated Diff (11/25/17 21:24) Comprehensive Metabolic Panel (11/25/17 21:24) Lactic Acid Analyzer (11/25/17 21:24) Blood Culture (11/25/17 21:24) Sputum Culture (11/25/17 21:24) Ua Culture If Indicated (11/25/17:24) Protime With Inr (11/25/17:24) Partial Thromboplastin Time (11/25/17 21:24) Chest 1 View, Ap/Pa Only (11/25/17 21:24) O2 (11/25/17 21:24) Saline Lock/Iv-Start (11/25/17 21:24) Saline Lock/Iv-Start (11/25/17 21:24) Troponin I (11/25/17:24) Vital Signs Adult Sepsis Patie Q1H (11/25/17 21:24) Remove Rings In Anticipation O (11/25/17 21:24) Magnesium (11/25/17 21:24) Ekg Tracing (11/25/17 21:24) Myoglobin Serum (11/25/17 21:24) Monitor-Rhythm Ecg Trace Only (11/25/17 21:24) Aspirin Chewable Tablet (Baby Aspirin Ch (11/25/17 21:24) BNP (11/25/17 21:29) Morphine Injection (Morphine Injection (11/25/17 21:30) Arterial Blood Gas (11/25/17 21:37) Lorazepam Injection (Ativan Injection) (11/25/17 21:36) Ns Iv 500 Ml (Sodium Chloride 0.9%) (11/25/17 21:39) Ns (Ivpb) (Sodium Chloride 0.9%) (11/25/17 22:17) Norepinephrine (Levophed) (11/25/17 22:18) Furosemide Injection (Lasix Injection) (11/25/17 22:41) Arterial Blood Gas (11/25/17 22:41) Furosemide Injection (Lasix Injection) (11/25/17 22:42) Dobutamine Drip (Dobutrex Drip) (11/25/17 22:43) Vital Signs/I&O Vital Sign - Last 12Hours 11/25/17 23:37 FiO2 100 Capillary Refill : Progress Note : Progress Note Seen and evaluated on arrival. Patient in severe distress. One daughter at bedside who brought her in. History limited due to critical condition. Patient is full code at this point. Patient complained of back pain or shortness of breath but did not speak much after that. Placed on BiPAP to assist with respirations and morphine 2 mg IV ordered. IV 2, labs, EKG, chest x-ray, UA, blood cultures and lactic acid ordered. 2215: Central line and intubation completed after discussion with family who are at this point are still okay with trying to advanced measures given that she had not expressed her wishes clearly previously about CODE STATUS but do understand the severity of the patient's current illness. I have explained that she may not make it through this. [facility] has been notified. Other daughter arrives and updated on current condition. 2230: Family in room. We have initiated Levophed and we are currently at 20 g. Labs reviewed and showed a lactic acid at greater than 10. I do believe this is related to significant prolonged hypoxia although underlying infection is still a possibility. Patient has history of heart failure and it appears that this has progressed despite outpatient therapy. We will initiate Lasix 80 mg IV. Patient has NG tube, Naidu catheter and central line all in place. Post x-ray shows central line, ET tube and NG tube in good position. BNP is grossly elevated even higher than on previous visit. Quick bedside ultrasound of the heart shows a hypodynamic heart. Blood pressure remained low despite elevation of Levophed. We will initiate dobutamine and see if this is effective. Patient is not stable enough to be transferred. 2317 : I have discussed the case with Dr. Edwards and patient's family at length. At this time the patient's family would like to withdraw care and go to comfort measures only. Patient was extubated. Patient does have continued heart rate that barely palpable blood pressure and is continuing to breathe. Eventual expected but could take some time. Patient will be admitted on comfort care orders. Dr. Edwards has agreed to admission. Family appreciative of care given and attempts but at this time understand that further attempts are futile and are more comfortable with withdrawing care and letting the patient be at peace. ECG Initial ECG Impression Date: Nov 25, 2017 Initial ECG Impression Time: 22:23 Initial ECG Rate: 97 Initial ECG Rhythm: Normal Sinus Comment Sinus rhythm with left bundle branch block. Some are to previous on 11/10/17.. No evidence of ST elevation RI. Interpreted by me. Diagnostic Imaging Diagonstic Imaging: Xray Plain Films/CT/US/NM/MRI: chest Comments Right lower lobe infiltrate versus effusion. Central line, ET tube and NG tube in good position. No evidence of pneumothorax. Reviewed: Reviewed by Me Critical Care Note Critical Care Start Time: 21:15 Stop Time: 23:17 Total Time (minutes) 60 Departure Communication (Admissions) Time/Spoke to Admitting Phy: 23:12 Impression Impression: Primary Impression: Respiratory failure with hypoxia Qualified Codes: J96.21 - Acute and chronic respiratory failure with hypoxia Additional Impressions: Need for comfort care acute exacerbation of congestive heart failure Disposition: ADMITTED INPATIENT Condition: Critical Admissions Decision to Admit Reason: Admit from ER (General) Decision to Admit/Date: Nov 25, 2017 Time/Decision to Admit Time: 23:17 Departure-Patient Inst. Referrals: ELIESER SALVADOR DO (PCP/Family) Primary Care Physician RONY SALAZAR MD Nov 25, 2017 22:28
[2017-11-25 22:30] LABS: CARBON DIOXIDE 9 MMOL/L (21-32); POTASSIUM 6.5 MMOL/L (3.6-5.0)
[2017-11-25 22:37] LABS: MYOGLOBIN SERUM 1658.8 NG/ML (10.0-92.0)
[2017-11-25] MEDS ORDERED: FUROSEMIDE 40 MG/4 ML INJ (LASIX) IV STA (22:41)
[2017-11-25] MEDS ORDERED: FUROSEMIDE 40 MG/4 ML INJ (LASIX) ONE (22:42)
[2017-11-25] MEDS ORDERED: DOBUTamine DRIP 250 ML IV ONE (22:43)
[2017-11-25 23:30] VITALS: BP 20/0
--- OUTSIDE RECORDS SUMMARY | 2017-11-25 23:48 | XMS REPORT | Continuity of Care Document ---
Author Author [facility] Organization [facility] Address Unknown Phone Unavailable Allergies Active Description Code Type Severity Reaction Onset Reported/Identified Relationship to Patient Clinical Status Yes hydrochlorothiazide [id number] Drug Allergy Moderate RASH 03/18/2017 Yes levofloxacin [id number] Drug Allergy Moderate SOA 03/18/2017 Yes milk [id number] Drug Allergy Mild upset stomach 03/18/2017 Yes Sulfa (Sulfonamide Antibiotics) [id number] Drug Allergy Unknown N/A 2016 Yes lactose [id number] Drug Allergy Unknown N/A 11/11/2017 Yes milk [id number] Drug Allergy Unknown N/A 11/11/2017 Medications There [...] OTHER NONSPECIFIC SKIN ERUPTION 01/07/2017 LOUISE REES SUPERVISOR SPECIAL EFFECTS Ot R42 DIZZINESS AND GIDDINESS 01/07/2017 LOUISE REES APRN Ot R53.1 WEAKNESS 01/07/2017 LOUISE REES APRN Ot Z79.82 PROTOTYPER (CURRENT) USE OF ASPIRIN 01/07/2017 LOUISE REES APRN Ot Z79.899 OTHER SHELTER (CURRENT) DRUG THERAPY 01/09/2017 RONY SALAZAR MD Ot B02.9 ZOSTER WITHOUT COMPLICATIONS 01/09/2017 RONY SALAZAR MD Ot E86.0 DEHYDRATION 01/09/2017 RONY SALAZAR MD Ot F17.210 NICOTINE DEPENDENCE, CIGARETTES, UNCOMPL 01/09/2017 RONY SALAZAR MD, Ot J44.9 CHRONIC OBSTRUCTIVE PULMONARY DISEASE, U 01/09/2017 RONY SALAZAR MD Ot R30.0 DYSURIA 01/09/2017 RONY SALAZAR MD Ot Z79.82 PROTOTYPER (CURRENT) USE OF ASPIRIN 01/09/2017 RONY SALAZAR MD Ot Z79.899 OTHER PROTOTYPER (CURRENT) DRUG THERAPY 01/09/2017 REES, PETER J SUPERVISOR SPECIAL EFFECTS Ot B02.9 ZOSTER WITHOUT COMPLICATIONS 01/09/2017 LOUISE REES APRN Ot J44.9 CHRONIC OBSTRUCTIVE PULMONARY DISEASE, U 01/09/2017 LOUISE REES SUPERVISOR SPECIAL EFFECTS Ot R21 RASH AND OTHER NONSPECIFIC SKIN ERUPTION 01/09/2017 LOUISE REES SUPERVISOR SPECIAL EFFECTS Ot R42 DIZZINESS AND GIDDINESS 01/09/2017 LOUISE REES SUPERVISOR SPECIAL EFFECTS Ot R53.1 WEAKNESS 01/09/2017 LOUISE REES SUPERVISOR SPECIAL EFFECTS Ot Z79.82 SHELTER (CURRENT) USE OF ASPIRIN 01/09/2017 LOUISE REES SUPERVISOR SPECIAL EFFECTS Ot Z79.899 OTHER PROTOTYPER (CURRENT) DRUG THERAPY 01/13/2017 LOUISE REES SUPERVISOR SPECIAL EFFECTS Ot B02.9 ZOSTER WITHOUT COMPLICATIONS 01/13/2017 LOUISE REES APRN Ot J44.9 CHRONIC OBSTRUCTIVE PULMONARY DISEASE, U 01/13/2017 LOUISE REES APRN Ot R21 RASH AND OTHER NONSPECIFIC SKIN ERUPTION 01/13/2017 LOUISE REES APRN Ot R42 DIZZINESS AND GIDDINESS 01/13/2017 LOUISE REES APRN Ot R53.1 WEAKNESS 01/13/2017 LOUISE REES SUPERVISOR SPECIAL EFFECTS Ot Z79.82 PROTOTYPER (CURRENT) USE OF ASPIRIN 01/13/2017 LOUISE REES APRN Ot Z79.899 OTHER SHELTER (CURRENT) DRUG THERAPY 01/19/2017 KAMINI JONES MD Ot B02.9 ZOSTER WITHOUT COMPLICATIONS 01/19/2017 KAMINI JONES MD Ot Z79.82 PROTOTYPER (CURRENT) USE OF ASPIRIN 01/19/2017 KAMINI JONES MD Ot Z79.899 OTHER PROTOTYPER (CURRENT) DRUG THERAPY 01/19/2017 KAMINI JONES MD Ot Z85.3 PERSONAL HISTORY OF MALIGNANT NEOPLASM O 01/19/2017 KAMINI JONES MD Ot Z90.12 ACQUIRED ABSENCE OF LEFT BREAST AND NIPP 01/30/2017 LOUISE REES SUPERVISOR SPECIAL EFFECTS Ot B02.29 OTHER POSTHERPETIC NERVOUS SYSTEM INVOLV 01/30/2017 LOUISE REES SUPERVISOR SPECIAL EFFECTS Ot J44.9 CHRONIC OBSTRUCTIVE PULMONARY DISEASE, U 01/30/2017 LOUISE REES SUPERVISOR SPECIAL EFFECTS Ot Z79.82 SHELTER (CURRENT) USE OF ASPIRIN 01/30/2017 LOUISE REES SUPERVISOR SPECIAL EFFECTS Ot Z79.899 OTHER PROTOTYPER (CURRENT) DRUG THERAPY 01/31/2017 LOUISE REES SUPERVISOR SPECIAL EFFECTS Ot B02.29 OTHER POSTHERPETIC NERVOUS SYSTEM INVOLV 01/31/2017 LOUISE REES SUPERVISOR SPECIAL EFFECTS Ot J44.9 CHRONIC OBSTRUCTIVE PULMONARY DISEASE, U 01/31/2017 LOUISE REES SUPERVISOR SPECIAL EFFECTS Ot Z79.82 SHELTER (CURRENT) USE OF ASPIRIN 01/31/2017 LOUISE REES SUPERVISOR SPECIAL EFFECTS Ot Z79.899 OTHER PROTOTYPER (CURRENT) DRUG THERAPY 02/05/2017 BI SERNA MD [...] PAIN 02/05/2017 BI SERNA MD Ot Z79.82 SHELTER (CURRENT) USE OF ASPIRIN 02/05/2017 BI SERNA MD T Ot Z79.899 OTHER SHELTER (CURRENT) DRUG THERAPY 02/06/2017 BI SERNA MD Ot B02.9 ZOSTER WITHOUT COMPLICATIONS 02/06/2017 BI SERNA MD Ot F17.210 NICOTINE DEPENDENCE, CIGARETTES, UNCOMPL 02/06/2017 BI SERNA MD Ot J44.9 CHRONIC OBSTRUCTIVE PULMONARY DISEASE, U 02/06/2017 BI SERNA MD T Ot K57.30 DVRTCLOS OF LG INT W/O PERFORATION OR AB 02/06/2017 BI SERNA MD Ot K80.20 CALCULUS OF GALLBLADDER W/O CHOLECYSTITI 02/06/2017 BI SERNA MD Ot R10.32 LEFT LOWER QUADRANT PAIN 02/06/2017 BI SERNA MD, Ot Z79.82 PROTOTYPER (CURRENT) USE OF ASPIRIN 02/06/2017 BI SERNA MD Ot Z79.899 OTHER PROTOTYPER (CURRENT) DRUG THERAPY 02/15/2017 BI SERNA MD [...] PAIN 02/15/2017 BI SERNA MD, Ot Z79.82 PROTOTYPER (CURRENT) USE OF ASPIRIN 02/15/2017 BI SERNA MD, Ot Z79.899 OTHER PROTOTYPER (CURRENT) DRUG THERAPY 03/18/2017 ANGEL PETERSON, QUENTIN [...] OF MALIGNANT NEOPLASM O 10/30/2017 NOE, TITI OVEN UNLOADER Ot E86.0 DEHYDRATION 10/30/2017 NOE, TITI OVEN UNLOADER Ot E87.5 HYPERKALEMIA 10/30/2017 NOE, TITI OVEN UNLOADER Ot F17.210 NICOTINE DEPENDENCE, CIGARETTES, UNCOMPL 10/30/2017 NOE, TITI OVEN UNLOADER Ot J44.9 CHRONIC OBSTRUCTIVE PULMONARY DISEASE, U 10/30/2017 NOE, TITI OVEN UNLOADER Ot M81.0 AGE-RELATED OSTEOPOROSIS W/O CURRENT PAT 10/30/2017 NOE, TITI OVEN UNLOADER Ot R53.1 WEAKNESS 10/30/2017 NOE, TITI OVEN UNLOADER Ot Z79.82 SHELTER (CURRENT) USE OF ASPIRIN 10/30/2017 NOE, TITI OVEN UNLOADER Ot Z82.49 FAMILY HX OF ISCHEM HEART DIS AND OTH DI 10/30/2017 NOE, TITI OVEN UNLOADER Ot Z87.19 PERSONAL HISTORY OF OTHER DISEASES OF TH 10/30/2017 NOE TITI OVEN UNLOADER Ot Z90.12 ACQUIRED ABSENCE OF LEFT BREAST AND NIPP 11/01/2017 NOE, TITI OVEN UNLOADER Ot E86.0 DEHYDRATION 11/01/2017 NOE, TITI OVEN UNLOADER Ot E87.5 HYPERKALEMIA 11/01/2017 NOE, TITI OVEN UNLOADER Ot F17.210 NICOTINE DEPENDENCE, CIGARETTES, UNCOMPL 11/01/2017 NOE, TITI OVEN UNLOADER Ot J44.9 CHRONIC OBSTRUCTIVE PULMONARY DISEASE, U 11/01/2017 NOE, TITI OVEN UNLOADER Ot M81.0 AGE-RELATED OSTEOPOROSIS W/O CURRENT PAT 11/01/2017 NOE, TITI OVEN UNLOADER Ot R53.1 WEAKNESS 11/01/2017 NOE, TITI OVEN UNLOADER Ot Z79.82 PROTOTYPER (CURRENT) USE OF ASPIRIN 11/01/2017 NOE, TITI OVEN UNLOADER Ot Z82.49 FAMILY HX OF ISCHEM HEART DIS AND OTH DI 11/01/2017 NOE, TITI OVEN UNLOADER Ot Z87.19 PERSONAL HISTORY OF OTHER DISEASES [...] Staphylococcus aureus (MRSA) screening culture NEG NRG Complete blood count (CBC) with automated white blood cell (WBC) differential - 11/25/17 21:26 Blood leukocytes automated count (number/volume) 11.9 10*3/uL 4.3-11.0 Blood erythrocytes automated count (number/volume) 4.09 10*6/uL 4.35-5.85 Venous blood hemoglobin measurement (mass/volume) 11.7 g/dL 11.5-16.0 Blood hematocrit (volume fraction) 38 % 35-52 Automated erythrocyte mean corpuscular volume 92 [foz_us] 80-99 Automated erythrocyte mean corpuscular hemoglobin (mass per erythrocyte) 29 pg 25-34 Automated erythrocyte mean corpuscular hemoglobin concentration measurement ( mass/volume) 31 g/dL 32-36 Automated erythrocyte distribution width ratio 15.5 % 10.0-14.5 Automated blood platelet count (count/volume) 493 10*3/uL 130-400 Automated blood platelet mean volume measurement 10.4 [foz_us] 7.4-10.4 Automated blood neutrophils/100 leukocytes 69 % 42-75 Automated blood lymphocytes/100 leukocytes 18 % 12-44 Blood monocytes/100 leukocytes 12 % 0-12 Automated blood eosinophils/100 leukocytes 0 % 0-10 Automated blood basophils/100 leukocytes 0 % 0-10 Blood neutrophils automated count (number/volume) 8.3 10*3 1.8-7.8 Blood lymphocytes automated count (number/volume) 2.2 10*3 1.0-4.0 Blood monocytes automated count (number/volume) 1.5 10*3 0.0-1.0 Automated eosinophil count 0.0 10*3/uL 0.0-0.3 Automated blood basophil count (count/volume) 0.0 10*3/uL 0.0-0.1 PT panel in platelet poor plasma by coagulation assay - 11/25/17 21:26 Prothrombin time (PT) in platelet poor plasma by coagulation assay 18.7 s 12.2-14.7 INR in platelet poor plasma or blood by coagulation assay 1.6 0.8-1.4 Activated partial thromboplastin time (aPTT) in platelet poor plasma bycoagulation assay - 11/25/17 21:26 Activated partial thromboplastin time (aPTT) in platelet poor plasma bycoagulation assay 35 s 24-35 Magnesium - 11/25/17 21:26 Magnesium 3.4 mg/dL 1.8-2.4 Blood lactic acid measurement (moles/volume) - 11/25/17 21:26 Blood lactic acid measurement (moles/volume) 10.98 mmol/L 0.50-2.00 Comprehensive metabolic panel - 11/25/17 21:26 Serum or plasma sodium measurement (moles/volume) 134 mmol/L 135-145 Serum or plasma potassium measurement (moles/volume) 6.5 mmol/L 3.6-5.0 Serum or plasma chloride measurement (moles/volume) 98 mmol/L 98-107 Carbon dioxide 9 mmol/L 21-32 Serum or plasma anion gap determination (moles/volume) 27 mmol/L 5-14 Serum or plasma urea nitrogen measurement (mass/volume) 29 mg/dL 7-18 Serum or plasma creatinine measurement (mass/volume) 2.24 mg/dL 0.60-1.30 Serum or plasma urea nitrogen/creatinine mass ratio 13 NRG Serum or plasma creatinine measurement with calculation of estimated glomerular filtration rate 21 NRG Serum or plasma glucose measurement (mass/volume) 111 mg/dL 70-105 Serum or plasma calcium measurement (mass/volume) 9.5 mg/dL 8.5-10.1 Serum or plasma total bilirubin measurement (mass/volume) 2.2 mg/dL 0.1-1.0 Serum or plasma alkaline phosphatase measurement (enzymatic activity/volume) 186 U/L 40-136 Serum or plasma aspartate aminotransferase measurement (enzymatic activity/ volume) 27 U/L 5-34 Serum or plasma alanine aminotransferase measurement (enzymatic activity/volume ) 20 U/L 0-55 Serum or plasma protein measurement (mass/volume) 7.7 g/dL 6.4-8.2 Serum or plasma albumin measurement (mass/volume) 3.6 g/dL 3.2-4.5 Serum or plasma troponin i.cardiac measurement (mass/volume) - 11/25/17 21:26 Serum or plasma troponin i.cardiac measurement (mass/volume) < ng/ mL <0.30 Myoglobin, serum - 11/25/17 21:26 Myoglobin, serum 1658.8 ng/mL 10.0-92.0 Serum or plasma lithium measurement (moles/volume) - 11/25/17 21:26 BNP level 29399.3 pg/mL <100.0 Arterial blood gas measurement - 11/25/17 21:46 Blood pCO2 33 mm[Hg] 35-45 Blood pO2 200 mm[Hg] 79-93 Arterial blood bicarbonate measurement (moles/volume) 9 mmol/L 23-27 Arterial blood base excess by calculation -20.0 mmol/L - 2.5-2.5 Arterial blood oxygen saturation measurement 99 % 94-100 * Inhaled oxygen flow rate 15 L NRG Arterial blood pH measurement with patient temperature correction 7.04 7.37-7.43 Arterial blood carbon dioxide, total measurement (moles/volume) 9.8 mmol/L 21.0-31.0 Body site R RAD NRG Assessment of wrist artery patency prior to arterial puncture YES- POS NRG Setting of ventilation mode NO NRG Measurement of body temperature 95.7 NRG Encounters ACCT No. Visit Date/Time Discharge Status Pt. Type Provider Facility Loc./Unit Complaint [id number] 11/10/2017 23:35:00 11/11/2017 12:30:00 DIS Inpatient ALEX PETERSON, DEXTER Cortez [facility] ICU ACUTE DECOMPENSATED HF HYPOTENSION [id number] 10/30/2017 21:01:00 10/30/2017 23:39:00 DIS Emergency NOETITI [facility] ER DEHYDRATION [id number] 03/18/2017 07:17:00 03/19/2017 11:07:00 DIS Outpatient MORAIMA PETERSON, MADDISON Carrera [facility] 4TH HYPOKALEMIA, WEAKNESS, NOCTERNAL HYPOXIA [id number] 02/05/2017 09:41:00 02/05/2017 12:36:00 DIS Emergency BI SERNA MD [facility] ER LEFT GROIN PAIN [id number] 01/30/2017 14:30:00 01/30/2017 14:59:00 DIS Emergency LOUISE REES APRN [facility] ER PAINFUL RASH [id number] 01/19/2017 14:37:00 01/19/2017 16:52:00 DIS Emergency KAMINI JONES MD [facility] ER RASH [id number] 01/08/2017 22:34:00 01/09/2017 01:43:00 DIS Emergency RONY SALAZAR MD [facility] ER DIFFICULTY URINATING/ LOW BP [id number] 01/07/2017 13:55:00 01/07/2017 15:56:00 DIS Emergency LOUISE REES APRN [facility] ER WEAKNESS/DIZZINESS [id number] 09/06/2013 09:05:00 09/06/2013 12:12:00 DIS Emergency BI SERNA MD [facility] ER ACUTE EXACERBATION OF CHF HYOIXIA [id number] 07/14/2013 18:02:00 07/14/2013 19:16:00 DIS Emergency BI SERNA MD [facility] ER WEAKNESS [id number] 06/20/2013 08:50:00 06/20/2013 23:59:59 CLS Outpatient ANGEL PETERSON, QUENTIN Gerardo [facility] RAD ABD PAIN [id number] 11/25/2017 23:20:00 ACT Inpatient KATHI HERRERA DO [facility] 4TH RESPIRATORY FAILURE, COMFORT CARE [id number] 08/06/2012 23:20:00 Document Registration [id number] 05/16/2012 02:02:00 Document Registration [id number] 09/01/2011 01:41:00 Document Registration
[2017-11-26] MEDS ORDERED: MIDAZOLAM 5 MG/5 ML (VERSED) VIAL INJ ONE (00:29)
[2017-11-26] MEDS ORDERED: SUCCINYLCHOLINE INJ 100 MG/5 ML SYR INJ ONE (00:29)
[2017-11-26] MEDS ORDERED: ETOMIDATE IV SOLN 20 MG/10 ML VIAL IV ONE (00:29)
[2017-11-26] MEDS ORDERED: fentaNYL INJECTION 100 MCG/2 ML AMP INJ ONE (00:29)
--- NOTE | 2017-11-26 07:52 | Diagnostic Imaging Report ---
PATIENT HISTORY: Post intubation and line placement. Respiratory distress. TECHNIQUE: Single frontal view of the chest. COMPARISON: 11/11/2017. FINDINGS: The endotracheal tube is approximately 5 cm from the juan m. The tip of the right jugular line projects over the low SVC. An enteric tube crosses the [id number] with the sidehole projecting over the stomach. There is a small right pleural effusion with associated right basilar airspace opacities. There is moderate cardiomegaly with central vascular congestion. Aortic atherosclerosis is noted. No pneumothorax is seen. There is diffuse osteopenia. IMPRESSION: 1. The endotracheal tube is 5 cm from the juan m. Enteric tube and right jugular line as described above. 2. Small right pleural effusion with associated right basilar airspace opacities. 3. Cardiomegaly with central vascular congestion. Dictated by: Dictated on workstation # [id number]
--- NOTE | 2017-11-26 09:46 | History & Physical-Hospitalist ---
HPI History of Present Illness: HPI/Chief Complaint Pt before seen, 15 minutes after arrival to floor. Pt was comfort care. Source: RN/MD Date Seen 11/26/17 Time Seen by Provider: 00:00 Attending Physician Eliza Edwards DO PCP Kevin Huynh DO Referring Physician Date of Admission Nov 25, 2017 at 23:20 Home Medications & Allergies Home Medications Reviewed patient Home Medication Reconciliation Form Allergies Allergies Coded Allergies hydrochlorothiazide (Verified Allergy, Intermediate, RASH, 03/18/17) Sulfa (Sulfonamide Antibiotics) (Verified Allergy, Unknown, 03/18/17) lactose (Verified Allergy, Unknown, 11/11/17) levofloxacin (Verified Adverse Reaction, Intermediate, SOA, 03/18/17) Past [id number] Hx Patient Social History Alcohol Use: Denies Use Recreational Drug Use: No (SMOKES 1PPD) Smoking Status: Current Everyday Smoker Type Used: Cigarettes 2nd Hand Smoke Exposure: No Recent Foreign Travel: No Contact w/other who traveled: No Recent Hopitalizations: No Recent Infectious Disease Expo: No Immunizations Up To Date Tetanus Booster (TDap): Less than 5yrs Date of Pneumonia Vaccine: Oct 22, 2016 Seasonal Allergies Seasonal Allergies: No Surgeries Yes (mastectomy left) Respiratory Yes Cardiovascular Yes (stress test Nov 2011 in [place], denies cardiac issues, heart cath neg) Neurological No Reproductive System Hx Reproductive Disorders: Yes Sexually Transmitted Disease: No Genitourinary Yes Renal Failure Gastrointestinal Yes Diverticulosis Musculoskeletal Yes Osteoporosis, Arthritis Endocrine History of Endocrine Disorders: No HEENT History of HEENT Disorders: Yes ("HOLE IN EARDRUMS" REPAIRED, CATARACTS REMOVED ) HEENT Disorders: Cataract Loss of Vision: Denies Hearing Impairment: Bilateral Hearing Aide Cancer Yes (Left mastectomy) Breast Type of Treatment: Surgical Intervention Psychosocial History of Psychiatric Problem: No Integumentary History of Skin or Integumenta: Yes (SHINGLES 01/05) Blood Transfusions History of Blood Disorders: No Family Medical History Significant Family History: No Pertinent Family Hx Family Hx: Cardiovascular disease 19 FATHER G8 BROTHER Diabetes mellitus G8 SISTER Review of Systems ROS-Unable to Obtain: Pt before seen, 15 minutes after arrival to floor. Pt was comfort c Constitutional: see HPI Physical Exam Physical Exam Vital Signs Vital Sign - Last 12Hours 11/25/17 11/25/17 21:12 23:37 Temp 95.9 Pulse 98 Resp 28 B/P (MAP) 80/40 (53) Pulse Ox 0 O2 Delivery Room Air O2 Flow Rate 6.00 FiO2 100 Capillary Refill : Less Than 3 Seconds General Appearance: Other (Pt before seen, 15 minutes after arrival to floor. Pt was comfort care.) Results Results/Procedures Lab Laboratory Tests 11/25/17 21:26 Assessment/Plan Admission Diagnosis Respiratory failure CHF with florrid pulmonary edema Pt before seen, 15 minutes after arrival to floor. Pt was comfort care. Assessment and Plan Pt before seen, 15 minutes after arrival to floor. Pt was comfort care. ELIZA EDWARDS DO Nov 26, 2017 09:46
== END 2017-11-25 23:32 | disposition expired ==
LOC: EDUNIT# 21:14 → ER 21:15 → 4TH 23:20
PROVIDERS: ADMIT Internal Medicine; ATTEND Internal Medicine
DX: J96.21 Acute and chronic respiratory failure with hypoxia (principal); I50.9 Heart failure, unspecified; Z51.5 Encounter for palliative care; Z85.3 Personal history of malignant neoplasm of breast; M81.0 Age-related osteoporosis without current pathological fracture; N18.9 Chronic kidney disease, unspecified; F17.210 Nicotine dependence, cigarettes, uncomplicated; J44.9 Chronic obstructive pulmonary disease, unspecified; Z88.1 Allergy status to other antibiotic agents; Z88.2 Allergy status to sulfonamides; Z88.8 Allergy status to other drugs, medicaments and biological substances; Z79.899 Other long term (current) drug therapy
CPT/HCPCS: 31500; 36415; 36430; 71045; 80053; 82805; 83605; 83735; 83874; 83880; 84484; 85025; 85610; 85730; 87040; 93005; 93041; 96361; 96365; 96375; 99291